=== PATIENT | female | born 1985 | race Caucasian/White ===

== ENCOUNTER → 2017-09-21 18:26 | Outpatient (CLI) | payer OTHER, SELFPAY | PROVIDERS: Family Provider Internal Medicine; PCP Internal Medicine; Visit Provider Physician Assistant | DX: J02.9 Acute pharyngitis, unspecified (principal) | CPT/HCPCS: 87081 ==

== ENCOUNTER → 2017-10-12 08:59 | Outpatient (CLI) | payer OTHER, SELFPAY ==
[2017-10-12 09:25] LABS: Absolute Lymphocyte Count 1.89 X10^3/ul (0.83-4.51); Absolute Neutrophil Count 5.2 X10^3/uL (2.0-7.7); Basophil# 0.04 X10^3/uL; Basophil% 0.5 % (0-1); Eosinophil# 0.27 X10^3/uL; Eosinophils% 3.5 % (0-5); Hematocrit 40.4 % (37-47); Hemoglobin 12.9 g/dl (12.0-15.0); Lymphocyte # 1.89 X10^3/ul (4.0); Lymphocyte % 24.5 % (19-41); Mean Corp Hgb Conc 31.9 g/gl (32-36); Mean Corpuscular Hgb 25.3 pg (27.0-32.0); Mean Corpuscular Volume 79.2 fL (81-99); Mean Platelet Vol. 8.8 fl (6.2-12.0); Monocyte# 0.37 X10^3/uL; Monocyte% 4.8 % (0-10); Neutrophil # 5.15 X10^3/uL (2.7-7.7); Neutrophil % 66.6 % (47-70); Platelet Count 297 K/mm3 (150-450); White Blood Count 7.7 K/mm3 (4.4-11.0)
[2017-10-12 09:26] LABS: POSITIVE COUNT NO; POSITIVE DIFFERENTIAL NO; POSITIVE MORPHOLOGY NO
[2017-10-12 09:58] LABS: Thyroid Stim Hormone (TSH) 0.46 uIU/mL (0.358-3.74)
== END ==
PROVIDERS: Family Provider Internal Medicine; PCP Internal Medicine; Visit Provider Nurse Practitioner Women's Health
DX: R53.83 Other fatigue (principal)
CPT/HCPCS: 82652; 84443; 85025

== ENCOUNTER → 2018-04-12 13:57 | Outpatient (CLI) | payer MEDICAID, SELFPAY ==
[2018-04-12 14:39] LABS: hCG Titer Quant., Serum 8 mIU/mL (<9 non-preg)
== END ==
PROVIDERS: Family Provider Internal Medicine; PCP Internal Medicine; Visit Provider Obstetrics & Gynecology
DX: O20.0 Threatened abortion (principal)
CPT/HCPCS: 36415; 84702

== ENCOUNTER → 2018-04-14 08:02 | Outpatient (CLI) | payer MEDICAID, SELFPAY ==
[2018-04-14 10:06] LABS: hCG Titer Quant., Serum 27 mIU/mL (<9 non-preg)
== END ==
PROVIDERS: Family Provider Internal Medicine; PCP Internal Medicine; Visit Provider Obstetrics & Gynecology
DX: O20.0 Threatened abortion (principal)
CPT/HCPCS: 36415; 84702

== ENCOUNTER → 2018-04-16 09:12 | Outpatient (CLI) | payer MEDICAID, SELFPAY ==
[2018-04-16 10:31] LABS: hCG Titer Quant., Serum 65 mIU/mL (<9 non-preg)
== END ==
PROVIDERS: Nurse Practitioner Women's Health; Family Provider Internal Medicine; PCP Internal Medicine; Visit Provider Obstetrics & Gynecology
DX: O20.0 Threatened abortion (principal)
CPT/HCPCS: 36415; 84702

== ENCOUNTER → 2018-04-30 09:56 | Outpatient (CLI) | payer MEDICAID, SELFPAY ==
[2018-04-30 11:17] LABS: hCG Titer Quant., Serum 9307 mIU/mL (<9 non-preg)
== END ==
PROVIDERS: Family Provider Internal Medicine; PCP Internal Medicine; Referring Provider Obstetrics & Gynecology; Visit Provider Obstetrics & Gynecology
DX: O20.0 Threatened abortion (principal)
CPT/HCPCS: 36415; 84702

== ENCOUNTER → 2018-05-14 18:02 | Outpatient (CLI) | payer OTHER, MEDICAID, SELFPAY ==
[2018-05-14 20:41] LABS: Chlamydia Trachomatis by PCR Negative (Negative); Neisserai gonorrhoeae by PCR Negative (Negative); Probe Check PASS; Sample Adequacy Control PASS; Specimen Processing Control PASS
== END ==
PROVIDERS: Family Provider Internal Medicine; PCP Internal Medicine; Referring Provider Obstetrics & Gynecology; Visit Provider Obstetrics & Gynecology
DX: Z98.891 History of uterine scar from previous surgery (principal)
CPT/HCPCS: 87086; 87491; 87591

== ENCOUNTER → 2018-07-12 11:35 | Outpatient (CLI) | payer MEDICAID, SELFPAY ==
[2018-07-11 13:28] VITALS: BMI 41.2
[2018-07-12 13:40] LABS: Absolute Lymphocyte Count 1.77 X10^3/ul (0.83-4.51); Absolute Neutrophil Count 6.8 X10^3/uL (2.0-7.7); Basophil# 0.01 X10^3/uL; Basophil% 0.1 % (0-1); Eosinophil# 0.21 X10^3/uL; Eosinophils% 2.3 % (0-5); Hematocrit 35.8 % (37-47); Hemoglobin 11.6 g/dl (12.0-15.0); Lymphocyte # 1.77 X10^3/ul (4.0); Lymphocyte % 19.1 % (19-41); Mean Corp Hgb Conc 32.4 g/gl (32-36); Mean Corpuscular Hgb 26.2 pg (27.0-32.0); Mean Corpuscular Volume 80.8 fL (81-99); Mean Platelet Vol. 8.9 fl (6.2-12.0); Monocyte# 0.42 X10^3/uL; Monocyte% 4.5 % (0-10); Neutrophil # 6.83 X10^3/uL (2.7-7.7); Neutrophil % 73.9 % (47-70); Platelet Count 229 K/mm3 (150-450); RBC Distribution Width CV 14.4 % (11.6-14.6); RBC Distribution Width SD 42.3 fl (35.1-43.9); Red Blood Count 4.43 M/mm3 (4.2-5.4); White Blood Count 9.3 K/mm3 (4.4-11.0)
[2018-07-12 13:41] LABS: POSITIVE COUNT NO; POSITIVE DIFFERENTIAL NO; POSITIVE MORPHOLOGY NO
[2018-07-12 14:11] LABS: Glucose Challenge Gest 1H 50g 97 mg/dL (70-140)
[2018-07-12 15:03] LABS: HIV - WCH Non-Reactive (Nonreactive); Rubella IgG 205.9 IU/mL
[2018-07-13 04:55] LABS: Rapid Plasmin Reagin (RPR) NONREACTIVE (NONREACTIVE)
[2018-07-16 11:17] LABS: HEPATITIS B SURFACE AG Negative (Negative)
[2018-07-16 11:18] LABS: V-Zoster IgG (Immunity) 604 index (Immune >165)
--- OUTSIDE RECORDS SUMMARY | 2018-08-28 07:01 | XMS RPT_ITS ---
:1985 Author Organization OHIP Support Name Relationship Address Phone AYLA NIEVES Unavailable [address] + [place] [address] WC Unavailable [address] + [place] [address] AYLA NIEVES Unavailable [address] + [place] [address] WC Unavailable [address] + [place] [address] AYLA NIEVES Unavailable [address] + [place] [address] WC Unavailable [address] + [place] [address] AYLA NIEVES Unavailable [address] + [place] [address] [facility] Unavailable [address] + [place] [address] AYLA NIEVES Unavailable [address] + [place] [address] WC Unavailable [address] + [place] [address] AYLA NIEVES Unavailable [address] + [place] [address] WC Unavailable [address] + [place] [address] AYLA NIEVES Unavailable [address] + [place] [address] WC Unavailable [address] + [place] [address] AYLA NIEVES Unavailable [address] + [place] [address] [facility] Unavailable [address] + [place] [address] ANDMIGUEL ROBERTSIEL Unavailable [address] + [place] [address] [facility] Unavailable [address] + [place] [address] ANDMIGUEL ROBERTSIEL Unavailable [address] + [place] [address] [facility] Unavailable [address] + [place] [address] ANDMIGUEL ROBERTSIEL Unavailable [address] + [place] [address] [facility] Unavailable [address] + [place] [address] ANDMIGUEL ROBERTSIEL Unavailable [address] + [place] [address] [facility] Unavailable [address] + [place] [address] ANDMIGUEL ROBERTSIEL Unavailable [address] + [place] [address] [facility] Unavailable [address] + [place] [address] ANDMIGUEL ROBERTSIEL Unavailable [address] + [place] [address] [facility] Unavailable [address] + [place] [address] ANDMIGUEL ROBERTSIEL Unavailable [address] + [place] [address] [facility] Unavailable [address] + [place] [address] ANDMIGUEL ROBERTSIEL Unavailable [address] + [place] [address] [facility] Unavailable [address] + [place] [address] ANDMIGUEL ROBERTSIEL Unavailable [address] + [place] [address] [facility] Unavailable [address] + [place] [address] [facility] Unavailable [address] + [place] [address] [facility] Unavailable [address] + [place] [address] AYLA NIEVES Unavailable [address] + [place] [address] [facility] Unavailable [address] + [place] [address] WC Unavailable [address] + [place] [address] [facility] Unavailable [address] + [place] [address] H Un[address] + [place] [address] [facility] Unavailable [address] + [place] [address] Care Team Providers Name Role Phone JUSTINA LAURA Maria Eugenia Attending Unavailable RAMONA LUA Referring Unavailable NO PRIMARY CARE, Primary Care Unavailable DANNIE PLATA Attending Unavailable RAMONA LUA Referring Unavailable NO PRIMARY CARE, Primary Care Unavailable DANNIE PLATA Attending Unavailable RAMONA LUA Referring Unavailable NO PRIMARY CARE, Primary Care Unavailable Ramona Lua Attending Unavailable Oleghe, Efewongbe Referring Unavailable Ramona Lua Attending Unavailable Ramona Lua Referring Unavailable Oleghe, Efewongbe Primary Care Unavailable Jonn Solano Attending Unavailable Oleghe, Efewongbe Referring Unavailable Neida Andrea Attending Unavailable Oleghe, Efewongbe Referring Unavailable Oleghe, Efewongbe Attending Unavailable Oleghe, Efewongbe Referring Unavailable Ramona Lua Attending Unavailable Oleghe, Efewongbe Referring Unavailable Jonn Solano Attending Unavailable Oleghe, Efewongbe Referring Unavailable Oleghe, Efewongbe Primary Care Unavailable Gagan Aj Attending Unavailable Oleghe, Efewongbe Referring Unavailable Oleghe, Efewongbe Primary Care Unavailable Gagan Aj Attending Unavailable Oleghe, Efewongbe Primary Care Unavailable Gagan Aj Referring Unavailable Aparna Vaughan Attending Unavailable Oleghe, Efewongbe Primary Care Unavailable Oleghe, Efewongbe Attending Unavailable Oleghe, Efewongbe Referring Unavailable Oleghe, Efewongbe Primary Care Unavailable Oleghe, Efewongbe Attending Unavailable Oleghe, Efewongbe Referring Unavailable Oleghe, Efewongbe Primary Care Unavailable Marcanthony, Ramona Attending Unavailable Marcanthony, Ramona Referring Unavailable Oleghe, Efewongbe Primary Care Unavailable Marcanthony, Ramona Attending Unavailable Marcanthony, Ramona Referring Unavailable Oleghe, Efewongbe Primary Care Unavailable Marcanthony, Ramona Attending Unavailable Marcanthony, Ramona Referring Unavailable Oleghe, Efewongbe Primary Care Unavailable Javad Hunt BATTER MIXER HELPER-C Attending Unavailable Oleghe, Efewongbe Referring Unavailable Oleghe, Efewongbe Primary Care Unavailable ASSESSMENT, HEALTH RISK Attending Unavailable ASSESSMENT, HEALTH RISK Referring Unavailable Oleghe, Efewongbe Primary Care Unavailable Marcanthony, Ramona Attending Unavailable Marcanthony, Ramona Referring Unavailable Oleghe, Efewongbe Primary Care Unavailable Marcanthony, Ramona Attending Unavailable Oleghe, Efewongbe Referring Unavailable Marcanthony, Ramona Attending Unavailable Oleghe, Efewongbe Primary Care Unavailable Marcanthony, Ramona Referring Unavailable TracyAparna Attending Unavailable Oleghe, Efewongbe Referring Unavailable PROBLEMS PROBLEMS DATE TYPE CONDITION / CODE ATTENDING STATUS SOURCE 08/06/2018 Unknown K42.9 - Umbilical Marcanthony, Active [place] hernia without [facility] obstruction or Hospital gangrene / Repository K42.9(ICD-10) 08/06/2018 Unknown F41.9 - Anxiety Marcanthony, Active [place] disorder, [facility] unspecified / Hospital F41.9(ICD-10) Repository 08/06/2018 Unknown F32.9 - Major Marcanthony, Active [place] depressive [facility] disorder, single Hospital episode, Repository unspecified / F32.9(ICD-10) 08/06/2018 Unknown Z98.891 - History Marcanthony, Active [place] of uterine scar [facility] from previous Hospital surgery / Repository Z98.891(ICD-10) 08/06/2018 Unknown Z3A.16 - 16 weeks Marcanthony, Active [place] gestation of [facility] / Hospital Z3A.16(ICD-10) Repository 08/06/2018 Unknown Z34.82 - Encounter Pedrocyndyolive, Active [place] for supervision of [facility] other normal Hospital , second Repository trimester / Z34.82(ICD-10) 08/06/2018 Unknown J45.20 - Mild Marcanthony, Active [place] intermittent [facility] asthma, Hospital uncomplicated / Repository J45.20(ICD-10) 08/06/2018 Unknown O09.899 - Marcanthony, Active [place] Supervision of [facility] other high risk Hospital pregnancies, Repository unspecified trimester / O09.899(ICD-10) 08/06/2018 Unknown Z67.91 - Marcanthony, Active [place] Unspecified blood [facility] type, Rh negative / Hospital Z67.91(ICD-10) Repository 06/27/2018 Unknown Z34.81 - Encounter Aparna Vaughan Active [place] for supervision of [facility] other normal Hospital , first Repository trimester / Z34.81(ICD-10) 07/04/2018 Unknown Z3A.08 - 8 weeks Marcanthony, Active [place] gestation of [facility] / Hospital Z3A.08(ICD-10) Repository 06/28/2018 Unknown Z00.00 - Encounter Javad Hunt Active [place] for general adult -C [facility] medical examination Hospital without abnormal Repository findings / Z00.00(ICD-10) 06/28/2018 Unknown Z34.90 - Encounter Javad Hunt Active [place] for supervision of [facility] normal , Hospital unspecified, Repository unspecified trimester / Z34.90(ICD-10) 06/28/2018 Unknown E66.9 - Obesity, Javad Hunt Active [place] unspecified / BATTER MIXER HELPER-C [facility] E66.9(ICD-10) Hospital Repository 07/27/2018 Unknown O20.0 - Threatened Marcanthony, Active [place] / [facility] O20.0(ICD-10) Hospital Repository 07/05/2018 Unknown J06.9 - Acute upper Oleghe, Active [place] respiratory Efewongbe [facility] infection, Hospital unspecified / Repository J06.9(ICD-10) 10/16/2017 Unknown R53.83 - Other TracyAparna guerrero Active [place] fatigue / Community R53.83(ICD-10) Hospital Repository 09/22/2017 Unknown J02.9 - Acute Wyles, Gagan Active [place] pharyngitis, [facility] unspecified / Hospital J02.9(ICD-10) Repository PROCEDURES PROCEDURES No Procedure Records FoundRESULTS RESULTS PREDATORY ANIMAL HUNTER OFFICE VISIT Observed: 08/06/2018 Status: F Source: [place] REPORT 2:57 PM [facility] REPOSITORY [facility] 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 Is patient in pain?: No Allergies ciprofloxacin [From Cipro] Allergy (Verified 08/06/18 14:35) Hives ciprofloxacin HCl [From Cipro] Allergy (Verified 08/06/18 14:35) Hives buspirone [From BuSpar] Adverse Reaction (Verified 08/06/18 14:35) Other citalopram [From Celexa] Adverse Reaction (Verified 08/06/18 14:35) Other fluoxetine [From Prozac] Adverse Reaction (Verified 08/06/18 14:35) Other Medications Loratadine [Claritin] 10 mg PO DAILY 07/12/16 [History Confirmed 08/06/18] sertraline 100 mg tablet 200 mg PO QDAY #180 tab 01/10/18 [Rx Confirmed 08/06/18] albuterol sulfate 0.63 mg/3 mL solution for nebulization 0.63 mg INHALATION Q8H PRN #90 ml 05/09/18 [Rx Confirmed 08/06/18] clotrimazole 1 % vaginal cream 1 appful VAGINAL QHS #45 g 05/25/18 [Rx Confirmed 08/06/18] Albuterol Inhaler [Ventolin Hfa] 1 - 2 puff INHALATION Q4H PRN PRN #1 inhaler 07/23/18 [Rx Confirmed 08/06/18] Last Menstral Period: 03/07/18 Zika: Zika virus screening: Negative : No PFSH PFSH Medical History Asthma (Chronic) Abdominal pain (Resolved) Anxiety (Resolved) Depression (Resolved) Diarrhea (Resolved) Nausea (Resolved) Surgical History History of (Acute) S/P tonsillectomy (Acute) Family History Mother Hypertension Cancer Skin Social History Smoking Status: Former smoker second hand exposure: No alcohol intake: current alcohol intake frequency: a few times a month substance use type: does not use caffeine: Yes what type of physical activity do you participate in: none frequency: does not exercise seatbelt use: always Pregancy History 4 Elective abortions Hx Para 2 Spontaneous abortions Past Pregnancies Del. DateName GA/Weeks Outcome Route Bth WeighInfant GeLabor LgtAnesthesiDel LocatProvider FOB t n h a n HPI 20 weeks: Details: CHEN NIEVES is a 33 year old who presents for routine OB visit. OB Visit CASTRO Calculator Estimated Delivery Date 12/21/18 Based on Ultrasound Date 05/14/18 Current WG 20w 3d Number 1 Expected Delivery Route/Plan Rltcs ?BTO Specific Issue/Plans flu vaccine: with employer tdap vaccine: [] rhogam: NA LARC form signed: [] labor support person: Ludwig pain management: [] cut cord/dad catch: [] : Yes PP control planned: [] special requests: [] Initial Weight: 235 lb Date Weight BP Urine PrFHR FuHt Pres MoCTX DilationFetal StVisit NoProviderComments E ot v te GA G Effac lucose ed Visit Notes Visit Date: 08/06/18 no vb cramping Ramona Lua MD on 08/06/18 Visit Date: 07/11/18 no vb cramping Ramona Lua MD on 07/11/18 Visit Date: 06/11/18 Nausea persisting in evenings. No VB, LOF Aparna Vaughan, BATTER MIXER HELPER-C on 06/11/18 ACOG First Trimester First Trimester: Desire for , Alcohol, Tobacco Cessation, Illicit/Recreational Drug/Substance Use, Intimate Partner Violence, Barriers to care, Unstable Housing, Communication Barriers, Environmental/Work Hazards, Anticipated Course of Care, Toxoplasmosis Precations, Use of Any medications, Sexual activity, Exercise, Dental Care, Sauna/Hot tub use, Seat Belt use, Childbirth classes/Hospital facilities, , Travel, Indications for US and Screening for Aneuploidy Diagnostics Diagnostics Labs Blood Type A NEGATIVE 07/12/18 Antibody Screen NEGATIVE 07/12/18 Hct 35.8 % (37-47) L 07/12/18 Hgb 11.6 g/dl (12.0-15.0) L 07/12/18 VZV IgG Antibody 604 index (Immune >165) 07/12/18 Rubella IgG Antibody 205.9 IU/mL 07/12/18 RPR NONREACTIVE (NONREACTIVE) 07/12/18 Hep Bs Antigen Negative (Negative) 07/12/18 Chlam trachomat DNA PCR Negative (Negative) 05/14/18 N.gonorrhoeae DNA (PCR) Negative (Negative) 05/14/18 Glucose 1 Hr 50 gm 97 mg/dL (70-140) 07/12/18 Details: HIV: Urine Culture: Sequential Screen: NIPT Screen: Assessment AND Plan Problems 1. Mild intermittent asthma without complication J45.20 albuterol PRN- not well controlled, refer to PCP consider Qvar daily 2. Umbilical hernia without obstruction and without gangrene K42.9 stable 3. Anxiety and depression F41.9; F32.9 zoloft 4. History of delivery Z98.891 03/28/14, 10/31/16 plan RLTCS 5. 16 weeks gestation of Z3A.16 anatomy scan ordered. NT not complete due to position and patient declined f/u appt. 6. Encounter for supervision of other normal in second trimester Z34.82 CASTRO 12/21/18 Nathan Baker Ludwig 7. Rh negative state in antepartum period O09.899; Z67.91 rhogam at 29 wk, pp and prn Plan ACOG trimester education reviewed and updated. see problem list details for updated plan management information and see below for orders placed at this visit. GA appropriate handout given. Orders Orders: Coding Level of Care Code Off vis,est,level 3 Diagnoses Mild intermittent asthma without complication J45.20 Asthma severity: mild Asthma persistence: intermittent Asthma complication type: uncomplicated Umbilical hernia without obstruction and without gangrene K42.9 Hernia type: umbilical Obstruction and gangrene presence: without obstruction or gangrene Anxiety and depression F41.9; F32.9 History of delivery Z98.891 16 weeks gestation of Z3A.16 Weeks of gestation: 16 weeks Encounter for supervision of other normal in second trimester Z34.82 Normal : other normal Trimester: second trimester Rh negative state in antepartum period O09.899; Z67.91 08/06/18 1457 <Electronically signed by Ramona Lua MD> Date Ramona Lua MD Cosigner Signature: Date (if applicable) CC: INTERNAL MEDICINE Observed: 07/26/2018 Status: F Source: [place] OFFICE VISIT 2:38 PM [facility] Internal Medicine [address] [place] [address] [place] [address] OFFICE VISIT Date of Service: 07/23/18 MR#: [id number] Acct: [id number] Name: CHEN NIEVES Rep #: [id number] : 1985 Provider: Rekha Payne MD Age/Sex: 33/F Location: [facility] Status: Signed Intake Vital Signs07/23/18 Body Mass Index (BMI) 41.2 07/23/18 Height 5 ft 4 in Intake Visit Reasons: Acute Chief Complaint: COUGH Is patient in pain?: Yes (rib pain) Pain scale (1-10): 7 Allergies ciprofloxacin [From Cipro] Allergy (Verified 07/15/18 11:13) Hives ciprofloxacin HCl [From Cipro] Allergy (Verified 07/15/18 11:13) Hives buspirone [From BuSpar] Adverse Reaction (Verified 07/15/18 11:13) Other citalopram [From Celexa] Adverse Reaction (Verified 07/15/18 11:13) Other fluoxetine [From Prozac] Adverse Reaction (Verified 07/15/18 11:13) Other Medications Loratadine [Claritin] 10 mg PO DAILY 07/12/16 [History Confirmed 07/15/18] sertraline 100 mg tablet 200 mg PO QDAY #180 tab 01/10/18 [Rx Confirmed 07/15/18] promethazine 12.5 mg tablet 12.5 mg PO Q6H PRN #120 tab 05/08/18 [Rx Confirmed 07/15/18] albuterol sulfate 0.63 mg/3 mL solution for nebulization 0.63 mg INHALATION Q8H PRN #90 ml 05/09/18 [Rx Confirmed 07/15/18] albuterol sulfate HFA 90 mcg/actuation aerosol inhaler 2 puff INHALATION PRN PRN #8.5 g 05/09/18 [Rx Confirmed 07/15/18] clotrimazole 1 % vaginal cream 1 appful VAGINAL QHS #45 g 05/25/18 [Rx Confirmed 07/15/18] ondansetron HCl 4 mg tablet 4 mg PO Q6H PRN #60 tab 06/11/18 [Rx Confirmed 07/15/18] Albuterol Inhaler [Ventolin Hfa] 1 - 2 puff INHALATION Q4H PRN PRN #1 inhaler 07/23/18 [Rx] amoxicillin 875 mg-potassium clavulanate 125 mg tablet 1 tab PO Q12H #20 tab 07/23/18 [Rx Confirmed 07/23/18] prednisone 20 mg tablet 20 mg PO DAILY #5 tab 07/23/18 [Rx Confirmed 07/23/18] Is last menstrual period known: Yes Patient : Yes PFSH Medical History Asthma (Chronic) Abdominal pain (Resolved) Anxiety (Resolved) Depression (Resolved) Diarrhea (Resolved) Nausea (Resolved) Surgical History History of (Acute) S/P tonsillectomy (Acute) Family History Mother Hypertension Cancer Skin Social History Smoking Status: Former smoker second hand exposure: No alcohol intake: current alcohol intake frequency: a few times a month substance use type: does not use caffeine: Yes what type of physical activity do you participate in: none frequency: does not exercise seatbelt use: always HPI HPI Chief Complaint: COUGH Details: CHEN NIEVES, is a 33yo F who presents to the office today due to concerns about ongoing cough , shortness of breath nasal congestion and feeling of unwell. Symptoms have been ongoing for about 10 days. She was seen at the Urgent care and was given a Z pack without significant improvement. She states that she has had to use her inhaler every 4 - 6 hours and has also had to have a Duoneb treatment at least once daily over the last couple of days. Seen today by her Master Esthetician who referred her over here for management of her exacerbation with steroid. ROS Const Constitutional: No weight change, body ache, chills, fatigue, sleep problems, fever(s), change in appetite, snoring, weakness, frequent falls, headache(s) or excessive sweating Eyes Eyes: No change in vision, eye pain, light sensitivity or blurry vision ENT ENT: Positive for nasal discharge and sinus pain; no headache(s), abnormal hearing, ear pain, tinnitus, sore throat or neck pain Resp Respiratory: Positive for cough Cough: Yes productive, shortness of breath and chest congestion; no snoring or wheezing Cardio Cardiology: No excessive sweating, chest pain at rest, chest pain with exertion, shortness of breath, dyspnea on exertion, palpitations, orthopnea or lightheadedness Gastro GI: No abdominal pain, change in bowel habits, constipation, diarrhea, vomiting, nausea/dyspepsia or cramping Genitourinary-Female: No burning urination, painful urination, urinary incontinence, urinary frequency, abnormal vaginal bleeding, pelvic pain or other Musc Musculoskeletal: No neck pain, abnormal walking, joint pain, back pain, limited range of motion, numbness or tingling Skin Skin: No redness, dry skin, itching, lesions, wounds or rash Neuro Neurology: No weakness, frequent falls, headache(s), abnormal hearing, abnormal walking, numbness, tingling, abnormal speech, dizziness or memory loss Psych Psychiatric: No change in appetite, No memory loss, No anxiety, No depression, No Thoughts of harming yourself/Others Endo Endocrine: No fatigue, excessive sweating, cold intolerance, increased thirst/drinking, heat intolerance, flushing or increased hunger Aller/Imm Allergy/Immunologic: No wheezing, itchy eyes, hives or seasonal allergy symptoms Joaquín/Lymp Hematologic/Lymphatic: No easy bleeding, easy bruising or enlarged lymph nodes Exam Const General: cooperative, no acute distress Orientation: alert, awake, oriented x3 HENMT Head: atraumatic, normal to inspection, normocephalic Ears: hearing grossly normal bilaterally Neck Neck: normal visual inspection, full ROM Neck mass: No Resp Effort AND Inspection: normal respiratory effort, able to speak in complete sentences Other: Very mild expiratory wheeze. Otherwise clear to auscultation. Cardio Rate: regular rate Rhythm: regular rhythm Heart Sounds: S1 normal, S2 normal Neuro General: alert, awake, oriented x3, moves all extremities, CN's II-XI intact bilaterally Psych Appearance: grossly normal Mood: congruent mood Affect: normal affect Assessment AND Plan 1. Asthma exacerbation J45.901 Plan Symptoms of cough, shortness of breath, increased sputum production and increased need for inhaler suggestive of asthma exacerbation. Most likely as a result of acute sinusitis. Okay to go on steroids per her paunch trimmer. 20 mg of prednisone daily for 5 days. Augmentin 875 125 mg every 12 for 10 days. Advised to call the office with any concerns or go to the ER if she notes worsening symptoms. 2. Acute sinusitis J01.90 Plan Prior history of sinusitis. Symptoms consistent with acute bacterial sinusitis. Augmentin as above. Tylenol as needed for pain/headache. Rest, increased fluid intake also recommended. This note was generated with [employer] dictation software. It may contain incorrect words, spelling, and punctuation that were not noted in checking the note before signing. Plan Detail Other Medications New: Coding Level of Care Code Off vis,est,level 3 Diagnoses Asthma exacerbation J45.901 Acute sinusitis J01.90 07/26/18 1438 <Electronically signed by Rekha Payne MD> Date Rekha Payne MD Cosigner Signature: Date (if applicable) CC: OFFICE VISIT REPORT Observed: 07/15/2018 Status: F Source: [place] 12:18 PM [facility] [place] [address] OFFICE VISIT Date of Service: 07/15/18 MR#: [id number] Acct: [id number] Patient: CHEN NIEVES Rep #: [id number] : 1985 Provider: Neida Andrea Age/Sex: 33/F Location[facility] Status: Signed Intake Vital Signs07/15/18 Body Mass Index (BMI) 41.2 07/15/18 Height 5 ft 4 in 07/15/18 Weight: 240 lb 07/15/18 Body Mass Index (BMI) 41.1 07/15/18 Blood Pressure 118/74 Intake Visit Reasons: COUGH, SORE THROAT/ SINUS Chief Complaint: COUGH Mill 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 Accompanied by: SELF Is patient in pain?: No Allergies ciprofloxacin [From Cipro] Allergy (Verified 07/15/18 11:13) Hives ciprofloxacin HCl [From Cipro] Allergy (Verified 07/15/18 11:13) Hives buspirone [From BuSpar] Adverse Reaction (Verified 07/15/18 11:13) Other citalopram [From Celexa] Adverse Reaction (Verified 07/15/18 11:13) Other fluoxetine [From Prozac] Adverse Reaction (Verified 07/15/18 11:13) Other Medications Loratadine [Claritin] 10 mg PO DAILY 07/12/16 [History Confirmed 07/15/18] sertraline 100 mg tablet 200 mg PO QDAY #180 tab 01/10/18 [Rx Confirmed 07/15/18] promethazine 12.5 mg tablet 12.5 mg PO Q6H PRN #120 tab 05/08/18 [Rx Confirmed 07/15/18] albuterol sulfate 0.63 mg/3 mL solution for nebulization 0.63 mg INHALATION Q8H PRN #90 ml 05/09/18 [Rx Confirmed 07/15/18] albuterol sulfate HFA 90 mcg/actuation aerosol inhaler 2 puff INHALATION PRN PRN #8.5 g 05/09/18 [Rx Confirmed 07/15/18] clotrimazole 1 % vaginal cream 1 appful VAGINAL QHS #45 g 05/25/18 [Rx Confirmed 07/15/18] ondansetron HCl 4 mg tablet 4 mg PO Q6H PRN #60 tab 06/11/18 [Rx Confirmed 07/15/18] azithromycin 250 mg tablet See Rx Instructions PO .COMPLEX #6 tab 07/15/18 [Rx Confirmed 07/15/18] PFSH Medical History Asthma (Chronic) Abdominal pain (Resolved) Anxiety (Resolved) Depression (Resolved) Diarrhea (Resolved) Nausea (Resolved) Surgical History History of (Acute) S/P tonsillectomy (Acute) Family History Mother Hypertension Cancer Skin Social History Smoking Status: Former smoker second hand exposure: No alcohol intake: current alcohol intake frequency: a few times a month substance use type: does not use caffeine: Yes what type of physical activity do you participate in: none frequency: does not exercise seatbelt use: always HPI HPI Chief Complaint: COUGH Details: CHEN NIEVES, is a 33 F who presents to the office today for an urgent appt. Pt sts that her symptoms started monday. She started with cough/bodyaches/headache/fatigue/sinus congestion. She has used OTC medication with some relief. rapid flu negative ROS Const Constitutional: Positive for body ache, fatigue, fever(s) and headache(s) Eyes Eyes: Positive for light sensitivity; no discharge or change in vision ENT ENT: Positive for headache(s), nasal congestion, nasal discharge, sinus pressure, post nasal drip and sore throat Resp Respiratory: Positive for cough Cardio Cardiology: No chest pain at rest, chest pain with exertion or shortness of breath Gastro GI: No diarrhea, nausea/dyspepsia or Vomiting blood/hematemesis Neuro Neurology: Positive for headache(s) Endo Endocrine: Positive for fatigue Exam Const General: cooperative, no acute distress, ill appearing acutely Orientation: alert, oriented x3 HENMT Head: atraumatic, normocephalic Ears: TM abnormal retracted bilaterally Nose: nasal mucous membranes and turbinates normal Face and sinus: sinus tenderness maxillary and frontal Mouth: moist mucous membranes Throat: posterior oropharynx abnormal erythema Eyes Sclera: sclerae normal Cornea: corneas normal Pupils: PERRL EOM: EOM intact bilaterally Neck Neck: no lymphadenopathy, trachea midline, supple Neck mass: No Thyroid: thyroid normal Resp Effort AND Inspection: normal respiratory effort Auscultation: Bilateral: Clear to Auscultation Cardio Palpation: normal PMI Rate: regular rate Rhythm: regular rhythm Heart Sounds: S1 normal, S2 normal, no click, no gallops, no murmurs, no rubs GI Auscultation: normal bowel sounds Percussion: normal to percussion Palpation: soft, no hepatosplenomegaly, nontender Skin General: no rashes or lesions noted Neuro General: alert, oriented x3, CN's II-XI intact bilaterally, no focal motor deficits Assessment AND Plan Problems 1. Acute pansinusitis, recurrence not specified J01.40 Plan Advised patient to complete course of antibiotics given. Advised patient on the importance of hydration. Recommended the use of txmz-iin-yxocpib support from Advil, Tylenol and dmey-hpr-pdslerg cold medications to help alleviate symptoms. Did review maximum dosing on each of these medications to avoid accidental overdose of medications. Advised not to take Zofran during antx use Medications New: azithromycin (Zithromax Z-Kevin) take 500 mg today (day 1), then 250 mg for 4 days (days 2-5 ) PO 6 tabs 0RF Coding Level of Care Code Off vis,est,level 4 Diagnoses Acute pansinusitis, recurrence not specified J01.40 Sinusitis location: pansinusitis Chronicity: acute Recurrence: not specified as recurrent 07/15/18 1218 <Electronically signed by Neida RUTHERFORD> Date Neida RUTHERFORD Cosigner Signature: Date (if applicable) CC: CBC W/DIFF, AUTOMATED Collected: 07/12/2018 Status: F Source: ABIGAIL 11:43 AM [facility] REPOSITORY TYPE CODE TESTS RESULT OUT OF RANGE REFERENCE UNITS LAB L100.1000 4.4-11.0 K/mm3 Normal WBC 9.3 LAB L100.1200 4.2-5.4 M/mm3 Normal RBC 4.43 LAB L100.1300 12.0-15.0 g/dl Low HGB 11.6 LAB L100.1400 37-47 % Low HCT 35.8 LAB L100.1500 81-99 fL Low MCV 80.8 LAB L100.1600 27.0-32.0 pg Low MCH 26.2 LAB L100.1700 32-36 g/gl Normal MCHC 32.4 LAB L100.1810 11.6-14.6 % Normal RDW CV 14.4 LAB L100.1820 35.1-43.9 fl Normal RDW SD 42.3 LAB L100.1900 150-450 K/mm3 Normal PLT 229 LAB L100.2000 6.2-12.0 fl Normal MPV 8.9 LAB L100.2100 47-70 % High NEUT% 73.9 LAB L100.2200 19-41 % Normal LY% 19.1 LAB L100.2300 0-10 % Normal MONO% 4.5 LAB L100.2400 0-5 % Normal EO% 2.3 LAB L100.2500 0-1 % Normal BASO% 0.1 LAB L100.2550 0.0-0.9 % Normal IM GRAN % 0.100 Result Comment: IG% - Immature Granulocytes (promyelocytes, myelocytes and metamyelocytes) > 1% indicates that a LEFT SHIFT is Present. LAB L100.2620 2.0-7.7 X10 3/uL Normal Absolute Neut 6.8 LAB L100.2720 0.83-4.51 X10 3/ul Normal Absolute Lymph 1.77 Performed By: #### L100.0100 #### [facility] [address] [place], [address] GLUCOSE CHALLENGE GEST Collected: 07/12/2018 Status: F Source: ABIGAIL 1H 50G 11:43 AM [facility] REPOSITORY TYPE CODE TESTS RESULT OUT OF RANGE REFERENCE UNITS LAB L501.0250 70-140 mg/dL Normal GLU GEST 97 50g 1H Performed By: #### L501.0250 #### [facility] [address] [place], [place], [id number] RUBELLA IGG Collected: 07/12/2018 Status: F Source: ALFRED 11:43 AM [facility] REPOSITORY TYPE CODE TESTS RESULT OUT OF RANGE REFERENCE UNITS LAB L509.4000 IU/mL Normal Rubella IgG 205.9 Result Comment: Antibody results Interpretation of Immune Status < 5 IU/ml Presumed Non-immune 5 - < 10 IU/ml Equivocal > or = 10 IU/ml Presumed Immune Performed By: #### L509.4000, L3890.6005 #### [facility] [address] [facility] [id number] HIV - [facility] Collected: 07/12/2018 Status: F Source: ALFRED 11:43 AM [facility] REPOSITORY TYPE CODE TESTS RESULT OUT OF RANGE REFERENCE UNITS LAB L3890.6005 Nonreactive Normal HIV - [facility] Non-Reactive Performed By: #### L509.4000, L3890.6005 #### [facility] [place], [place], [id number] TYPE AND SCREEN Collected: 07/12/2018 Status: F Source: ALFRED 11:43 AM [facility] REPOSITORY Order Comment: Reason for Type AND Screen/Red Cells: TYPE CODE TESTS RESULT OUT OF RANGE REFERENCE UNITS LAB B10.0800 A Normal BLOOD TYPE GEL NEGATIVE LAB B100.4000 Normal Antibody NEGATIVE Screen Performed By: #### B101.7450 #### [facility] [facility] [id number] RAPID PLASMIN REAGIN Collected: 07/12/2018 Status: F Source: ALFRED (RPR) 11:43 AM [facility] REPOSITORY TYPE CODE TESTS RESULT OUT OF REFERENCE UNITS RANGE LAB L700.5000 NONREACTIVE NONREACTIVE Normal RPR Performed By: #### L700.5000 #### [facility] [address] [facility] [id number] HEPATITIS B SURFACE Collected: 07/12/2018 Status: F Source: ABIGAIL AG 11:43 AM [facility] REPOSITORY TYPE CODE TESTS RESULT OUT OF RANGE REFERENCE UNITS LAB L3100.0400 Negative Normal HB Negative SURF AG Result Comment: Performed at: - [facility] [id number] Bedspread Cutter: Neel Lombardo PhD, Phone: [phone] Performed By: #### L3100.0390, L3400.0000 #### [facility] (refer to report for specific site) refer to report for address and phone number V-ZOSTER IGG Collected: 07/12/2018 Status: F Source: ABIGAIL (IMMUNITY) 11:43 AM [facility] REPOSITORY TYPE CODE TESTS RESULT OUT OF RANGE REFERENCE UNITS LAB L3400.0000 Immune >165 index Normal VZOST IgG 604 [address] Result Comment: Negative <135 Equivocal 135 - 165 Positive >165 A positive result generally indicates exposure to the pathogen or administration of specific immunoglobulins, but it is not indication of active infection or stage of disease. Performed By: #### L3100.0390, L3400.0000 #### [facility] (refer to report for specific site) refer to report for address and phone number PREDATORY ANIMAL HUNTER OFFICE VISIT Observed: 07/11/2018 Status: F Source: ABIGAIL REPORT 1:59 PM [facility] REPOSITORY [facility]'s 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 Is patient in pain?: No Allergies ciprofloxacin [From Cipro] Allergy (Verified 07/11/18 13:28) Hives ciprofloxacin HCl [From Cipro] Allergy (Verified 07/11/18 13:28) Hives buspirone [From BuSpar] Adverse Reaction (Verified 07/11/18 13:28) Other citalopram [From Celexa] Adverse Reaction (Verified 07/11/18 13:28) Other fluoxetine [From Prozac] Adverse Reaction (Verified 07/11/18 13:28) Other Medications Loratadine [Claritin] 10 mg PO DAILY 07/12/16 [History Confirmed 07/11/18] sertraline 100 mg tablet 200 mg PO QDAY #180 tab 01/10/18 [Rx Confirmed 07/11/18] promethazine 12.5 mg tablet 12.5 mg PO Q6H PRN #120 tab 05/08/18 [Rx Confirmed 07/11/18] albuterol sulfate 0.63 mg/3 mL solution for nebulization 0.63 mg INHALATION Q8H PRN #90 ml 05/09/18 [Rx Confirmed 07/11/18] albuterol sulfate HFA 90 mcg/actuation aerosol inhaler 2 puff INHALATION PRN PRN #8.5 g 05/09/18 [Rx Confirmed 07/11/18] clotrimazole 1 % vaginal cream 1 appful VAGINAL QHS #45 g 05/25/18 [Rx Confirmed 07/11/18] ondansetron HCl 4 mg tablet 4 mg PO Q6H PRN #60 tab 06/11/18 [Rx Confirmed 07/11/18] Last Menstral Period: 03/07/18 Zika: Zika virus screening: Negative : No PFSH PFSH Medical History Diarrhea (Acute) Nausea (Acute) Abdominal pain (Acute) Asthma (Chronic) Anxiety (Acute) Depression (Acute) Surgical History History of (Acute) S/P tonsillectomy (Acute) Family History Mother Hypertension Cancer Skin Social History Smoking Status: Former smoker second hand exposure: No alcohol intake: current alcohol intake frequency: a few times a month substance use type: does not use caffeine: Yes what type of physical activity do you participate in: none frequency: does not exercise seatbelt use: always Pregancy History 4 Elective abortions Hx Para 2 Spontaneous abortions Past Pregnancies Del. DateName GA/Weeks Outcome Route Bth WeighInfant GeLabor LgtAnesthesiDel LocatProvider FOB t n h a n HPI 16 weeks: Details: CHEN NIEVES is a 33 year old who presents for routine OB visit. OB Visit CASTRO Calculator Estimated Delivery Date 12/21/18 Based on Ultrasound Date 05/14/18 Current WG 16w 5d Number 1 Expected Delivery Route/Plan Rltcs ?BTO Specific Issue/Plans flu vaccine: with employer tdap vaccine: [] rhogam: NA LARC form signed: [] labor support person: Ludwig pain management: [] cut cord/dad catch: [] : Yes PP control planned: [] special requests: [] Initial Weight: 235 lb Date Weight BP Urine PrFHR FuHt Pres MoCTX DilationFetal StVisit NoProviderComments E ot v te GA G Effac lucose ed Visit Notes Visit Date: 07/11/18 no vb cramping Ramona Lua MD on 07/11/18 Visit Date: 06/11/18 Nausea persisting in evenings. No VB, LOF Aparna Vaughan NP-C on 06/11/18 ACOG First Trimester First Trimester: Desire for , Alcohol, Tobacco Cessation, Illicit/Recreational Drug/Substance Use, Intimate Partner Violence, Barriers to care, Unstable Housing, Communication Barriers, Environmental/Work Hazards, Anticipated Course of Care, Toxoplasmosis Precations, Use of Any medications, Sexual activity, Exercise, Dental Care, Sauna/Hot tub use, Seat Belt use, Childbirth classes/Hospital facilities, , Travel, Indications for US and Screening for Aneuploidy Diagnostics Diagnostics Labs Hct 38.7 % (37-47) 04/26/18 Hgb 12.1 g/dl (12.0-15.0) 04/26/18 Chlam trachomat DNA PCR Negative (Negative) 05/14/18 N.gonorrhoeae DNA (PCR) Negative (Negative) 05/14/18 Details: HIV: Urine Culture: Sequential Screen: NIPT Screen: Results [id number] Office Urine Glucose Negative Last Edit by Neida Flores on 07/11/18 13:27 Office Urine Protein Negative Last Edit by Neida Flores on 07/11/18 13:27 Assessment AND Plan Problems 1. Umbilical hernia without obstruction and without gangrene K42.9 stable 2. Anxiety and depression F41.9; F32.9 zoloft 3. History of delivery Z98.891 03/28/14, 10/31/16 plan RLTCS 4. 16 weeks gestation of Z3A.16 anatomy scan ordered. NT not complete due to position and patient declined f/u appt. 5. Encounter for supervision of other normal in second trimester Z34.82 CASTRO 12/21/18 PC Nathan Shane Ludwig 6. Mild intermittent asthma without complication J45.20 Plan ACOG trimester education reviewed and updated. see problem list details for updated plan management information and see below for orders placed at this visit. GA appropriate handout given. needs new ob labs drawn. Orders Orders: Coding Level of Care Code OB Routine Diagnoses Umbilical hernia without obstruction and without gangrene K42.9 Hernia type: umbilical Obstruction and gangrene presence: without obstruction or gangrene Anxiety and depression F41.9; F32.9 History of delivery Z98.891 16 weeks gestation of Z3A.16 Weeks of gestation: 16 weeks Encounter for supervision of other normal in second trimester Z34.82 Normal : other normal Trimester: second trimester Mild intermittent asthma without complication J45.20 Asthma severity: mild Asthma persistence: intermittent Asthma complication type: uncomplicated 07/11/18 1359 <Electronically signed by Ramona Lua MD> Date Ramona Lua MD Cosigner Signature: Date (if applicable) CC: PREDATORY ANIMAL HUNTER OFFICE VISIT Observed: 06/11/2018 Status: F Source: ABIGAIL REPORT 2:51 PM [facility]'s 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 Is patient in pain?: No Allergies ciprofloxacin [From Cipro] Allergy (Verified 06/11/18 14:17) Hives ciprofloxacin HCl [From Cipro] Allergy (Verified 06/11/18 14:17) Hives buspirone [From BuSpar] Adverse Reaction (Verified 06/11/18 14:17) Other citalopram [From Celexa] Adverse Reaction (Verified 06/11/18 14:17) Other fluoxetine [From Prozac] Adverse Reaction (Verified 06/11/18 14:17) Other Medications Loratadine [Claritin] 10 mg PO DAILY 07/12/16 [History Confirmed 06/11/18] sertraline 100 mg tablet 200 mg PO QDAY #180 tab 01/10/18 [Rx Confirmed 06/11/18] promethazine 12.5 mg tablet 12.5 mg PO Q6H PRN #120 tab 05/08/18 [Rx Confirmed 06/11/18] albuterol sulfate 0.63 mg/3 mL solution for nebulization 0.63 mg INHALATION Q8H PRN #90 ml 05/09/18 [Rx Confirmed 06/11/18] albuterol sulfate HFA 90 mcg/actuation aerosol inhaler 2 puff INHALATION PRN PRN #8.5 g 05/09/18 [Rx Confirmed 06/11/18] clotrimazole 1 % vaginal cream 1 appful VAGINAL QHS #45 g 05/25/18 [Rx Confirmed 06/11/18] ondansetron HCl 4 mg tablet 4 mg PO Q6H PRN #60 tab 06/11/18 [Rx Confirmed 06/11/18] Last Menstral Period: 03/07/18 Zika: Zika virus screening: Negative : No PFSH PFSH Medical History Diarrhea (Acute) Nausea (Acute) Abdominal pain (Acute) Asthma (Chronic) Anxiety (Acute) Depression (Acute) Surgical History History of (Acute) S/P tonsillectomy (Acute) Family History Mother Hypertension Cancer Skin Social History Smoking Status: Former smoker second hand exposure: No alcohol intake: current alcohol intake frequency: a few times a month substance use type: does not use caffeine: Yes what type of physical activity do you participate in: none frequency: does not exercise seatbelt use: always Pregancy History 4 Elective abortions Hx Para 2 Spontaneous abortions Past Pregnancies Del. DateName GA/Weeks Outcome Route Bth WeighInfant GeLabor LgtAnesthesiDel LocatProvider FOB t n h a n HPI OB: Details: CHEN NIEVES is a 32 year old who presents for routine OB visit. OB Visit CASTRO Calculator Estimated Delivery Date 12/21/18 Based on Ultrasound Date 05/14/18 Current WG 12w 3d Number 1 Expected Delivery Route/Plan Rltcs Specific Issue/Plans flu vaccine: with employer tdap vaccine: [] rhogam: NA LARC form signed: [] labor support person: Ludwig pain management: [] cut cord/dad catch: [] : Yes PP control planned: [] special requests: [] Initial Weight: Not Recorded Date Weight BP Urine PrFHR FuHt Pres MoCTX DilationFetal StVisit NoProviderComments E ot v te GA G Effac lucose ed Visit Notes Visit Date: 06/11/18 Nausea persisting in evenings. No VB, LOF CARLOS Edgar on 06/11/18 ACOG First Trimester First Trimester: Desire for , Alcohol, Tobacco Cessation, Illicit/Recreational Drug/Substance Use, Intimate Partner Violence, Barriers to care, Unstable Housing, Communication Barriers, Environmental/Work Hazards, Anticipated Course of Care, Toxoplasmosis Precations, Use of Any medications, Sexual activity, Exercise, Dental Care, Sauna/Hot tub use, Seat Belt use, Childbirth classes/Hospital facilities, , Travel, Indications for US and Screening for Aneuploidy Diagnostics Diagnostics Labs Hct 38.7 % (37-47) 04/26/18 Hgb 12.1 g/dl (12.0-15.0) 04/26/18 Chlam trachomat DNA PCR Negative (Negative) 05/14/18 N.gonorrhoeae DNA (PCR) Negative (Negative) 05/14/18 Details: HIV: Urine Culture: Sequential Screen: NIPT Screen: Results [id number] Office Urine Glucose Negative Last Edit by Neida Flores on 06/11/18 14:27 Office Urine Protein Negative Last Edit by Neida Flores on 06/11/18 14:27 Assessment AND Plan Problems 1. Encounter for supervision of other normal in first trimester Z34.81 CASTRO 12/21/18 Nathan Baker Ludwig 2. 8 weeks gestation of Z3A.08 sequential and anatomy scan ordered. 3. History of Z98.891 03/28/14, 10/31/16 plan RLTCS Plan Orders placed: yung US confirmed active IUP and FHT NT scheduled in 3 days with MFM; will do labs and 1 hr GCT Safe OB med list given ACOG trimester education reviewed and updated See problem list details for updated plan of care Gestational age appropriate handout given RTO: 4 weeks Orders Orders: Medications New: Coding Level of Care Code OB Routine Diagnoses Encounter for supervision of other normal in first trimester Z34.81 Normal : other normal Trimester: first trimester 8 weeks gestation of Z3A.08 Weeks of gestation: 8 weeks History of Z98.891 06/11/18 1451 <Electronically signed by Aparna GONZALEZ> Date Aparna GONZALEZ Cosigner Signature: Date (if applicable) CC: CT/NG [facility]CH BY PCR Collected: 05/14/2018 Status: F Source: ABIGAIL 6:02 PM [facility] REPOSITORY Order Comment: NO COLLECTION INFO GIVEN TYPE CODE TESTS RESULT OUT OF RANGE REFERENCE UNITS LAB L8200.2100 Negative Normal Chlam Negative Trac PCR LAB L8200.2200 Negative Normal NG by Negative PCR Performed By: #### L8200.1999, M100.0650 #### [facility] [address] [place], [address] Observed: 05/14/2018 Status: F Source: ABIGAIL CULTURE, URINE 6:02 PM [facility] REPOSITORY NO COLLECTION INFO GIVEN Urine Culture Culture exhibits no growth. Performed By: #### L8200.1999, M100.0650 #### [facility] [address] [place], [address] PREDATORY ANIMAL HUNTER OFFICE VISIT Observed: 05/14/2018 Status: F Source: ABIGAIL REPORT 5:20 PM [facility] REPOSITORY [facility] [address] [place] [address] OFFICE VISIT Date of Service: 05/14/18 MR#: [id number] Acct: [id number] Name: CHEN NIEVES Rep #: [id number] : 1985 Provider: Ramona Lua MD Age/Sex: 32/F Location: [facility] Status: Signed Intake Vital Signs05/14/18 Height 5 ft 4 in 05/14/18 Weight: 230 lb 05/14/18 Body Mass Index (BMI) 39.4 Intake Visit Reasons: lmp 03/21/18 Mill 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 Is patient in pain?: No Allergies ciprofloxacin [From Cipro] Allergy (Verified 05/14/18 15:39) Hives ciprofloxacin HCl [From Cipro] Allergy (Verified 05/14/18 15:39) Hives buspirone [From BuSpar] Adverse Reaction (Verified 05/14/18 15:39) Other citalopram [From Celexa] Adverse Reaction (Verified 05/14/18 15:39) Other fluoxetine [From Prozac] Adverse Reaction (Verified 05/14/18 15:39) Other Medications Loratadine [Claritin] 10 mg PO DAILY 12/13/16 [History Confirmed 05/14/18] sertraline 100 mg tablet 200 mg PO QDAY #180 tab 01/10/18 [Rx Confirmed 05/14/18] clotrimazole 1 % vaginal cream 1 appful VAGINAL QHS #45 g 04/25/18 [Rx Confirmed 05/14/18] promethazine 12.5 mg tablet 12.5 mg PO Q6H PRN #120 tab 05/08/18 [Rx Confirmed 05/14/18] albuterol sulfate 0.63 mg/3 mL solution for nebulization 0.63 mg INHALATION Q8H PRN #90 ml 05/09/18 [Rx Confirmed 05/14/18] albuterol sulfate HFA 90 mcg/actuation aerosol inhaler 2 puff INHALATION PRN PRN #8.5 g 05/09/18 [Rx Confirmed 05/14/18] Last Menstral Period: 03/07/18 Zika: Zika virus screening: Negative : No PFSH PFSH Medical History Diarrhea (Acute) Nausea (Acute) Abdominal pain (Acute) Asthma (Chronic) Anxiety (Acute) Depression (Acute) Surgical History History of (Acute) S/P tonsillectomy (Acute) Family History Mother Hypertension Cancer Skin Social History Smoking Status: Former smoker second hand exposure: No alcohol intake: current alcohol intake frequency: a few times a month substance use type: does not use caffeine: Yes what type of physical activity do you participate in: none frequency: does not exercise seatbelt use: always Pregancy History 4 Elective abortions Hx Para 2 Spontaneous abortions Past Pregnancies Del. DateName GA/Weeks Outcome Route Bth WeighInfant GeLabor LgtAnesthesiDel LocatProvider FOB t n h a n HPI lmp 03/21/18: Details: CHEN NIEVES is a 32 year old who presents for New OB visit. OB Visit Comments: crl not consistent with CASTRO, recommend changing Menstrual History Last Menstral Period: 03/07/18 Reported LMP: definite Normal amount/duration: Yes On hormonal BC at conception: No Antepartum Record Genetic Screening: Congenital Heart Defect: Other, Neural Tube Defect: Other, Hemoglobinopathy Or Carrier: Other, Cystic Fibrosis: Other, Chromosome Abnormality: Other, Gustavo-Sachs: Other, Hemophilia: Other, Intellectual Disability/Autism: Other, Recurrent Loss/Stillbirth: Other, Other Structural Defect: Patient (father cleft lip), Other Genetic Disease: Other, Maternal Metabolic Disorder: Other Infection History: Live with someone with TB or Exposed to TB: No, Patient or Partner has history of Genital Herpes: No, Rash or Viral illness since last mentrual period: No, Prior GBS-Infected child: No, History of STD: No, HIV Infection: No, History of Hepatitis: No, Recent travel outside of [place]: No, Concern for Hep exposure: No, Varicella immune: Yes Medical History Medical History: Positive: Psychiatric, Depression/ depression, Client Sales And Service Officer surgery, Operations/hospitalizations, Negative: Diabetes, Hypertension, Heart disease, Auto-immune disorder, Kidney disease/UTI, Neurologic/epilepsy, Hepatitis/liver disease, Varicosities/phlebitis, Thyroid dysfunction, Trauma/domestic violence, History of blood transfusions, D (Rh) Sensitized, Pulmonary (e.g.,TB,Asthma), Seasonal allergies, Drug/latex allergies/reactions, Breast, Anesthetic complications, History of abnormal pap, Uterine anomaly/robert, Infertility, Anti-retroviral treatment, Relevant family history, Other ACOG First Trimester First Trimester: Desire for , Alcohol, Tobacco Cessation, Illicit/Recreational Drug/Substance Use, Intimate Partner Violence, Barriers to care, Unstable Housing, Communication Barriers, Environmental/Work Hazards, Anticipated Course of Care, Nurtrition and weight gain, Toxoplasmosis Precations, Use of Any medications, Sexual activity, Exercise, Dental Care, Sauna/Hot tub use, Seat Belt use, Childbirth classes/Hospital facilities, , Travel, Indications for US and Screening for Aneuploidy ROS Const Denies fever(s), Reports system reviewed and no additional complaints, except as docu, Reports fatigue Eyes Reports system reviewed and no additional complaints, except as docu ENT Reports system reviewed and no additional complaints, except as docu Card Denies chest pain, Denies shortness of breath Resp Reports system reviewed and no additional complaints, except as docu, Denies shortness of breath, Denies cough GI Reports nausea, Denies abdominal pain Reports system reviewed and no additional complaints, except as docu Musc Reports system reviewed and no additional complaints, except [facility] Skin/Breast Reports system reviewed and no additional complaints, except as [facility] Neuro Yes system reviewed and no additional complaints, except as [facility] Psych Reports system reviewed and no additional complaints, except as docu Endo Reports fatigue, Reports system reviewed and no additional complaints, except as docu Exam Const General: healthy appearing, comfortable, no acute distress Orientation: alert [facility] Head: normal to inspection, atraumatic, normocephalic Ears: external ears normal, hearing grossly normal bilaterally Nose: nares normal, external nose normal Mouth: oral mucosae normal Teeth and gingiva: dentition normal Eyes General: appearance normal, both eyes and all related structures Neck Neck: no lymphadenopathy, supple, normal visual inspection Thyroid: thyroid normal Chest Chest palpation AND inspection: normal inspection of the chest Breast inspection: normal inspection of the breasts, normal inspection of the axillae Breast palpation: normal palpation of the breasts, normal palpation of the axillae Resp Effort AND Inspection: normal respiratory effort GI Inspection: normal to inspection Palpation: soft, no hepatosplenomegaly General: bladder normal to palpation External Female Exam: normal external appearance, normal appearance of the urethra Urethra: normal appearance of the urethra Speculum Exam - Vagina: normal appearance of the vagina, normal vaginal discharge Speculum Exam - Cervix: normal appearance of the cervix Bimanual Exam- Vagina AND Uterus: bladder normal to palpation, normal bimanual exam, uterus non-tender, other Bimanual Exam- Adnexa, other: adnexae non-tender Skin General: no rashes or lesions noted Neuro Motor: muscle tone normal throughout, no movement abnormalities noted Extrem General: normal to inspection, full ROM Assessment AND Plan Problems 1. Umbilical hernia without obstruction and without gangrene K42.9 stable 2. Anxiety and depression F41.9; F32.9 zoloft 3. History of delivery Z98.891 03/28/14, 10/31/16 plan RLTCS 4. 8 weeks gestation of Z3A.08 sequential and anatomy scan ordered. Plan Patient oriented to practice and discussed care expectations and screenings. ACOG book offered to patient. Discussed routine and specially indicated labs if needed- patient consents to testing. see problem list details for plan information. Optional screening including carrier screenings, neural tube defect screening, sequential screening, and NIPT screening offered to patient and patient chose: sequential- ordered Orders Orders: Supplemental Info ACOG book given and patient encouraged to read about nutrition, exercise, weight gain, and food avoidance in . Coding Level of Care Code OB Routine Diagnoses Umbilical hernia without obstruction and without gangrene K42.9 Hernia type: umbilical Obstruction and gangrene presence: without obstruction or gangrene Anxiety and depression F41.9; F32.9 History of delivery Z98.891 8 weeks gestation of Z3A.08 Weeks of gestation: 8 weeks 05/14/18 1720 <Electronically signed by Ramona Lua MD> Date Ramona Lua MD Cosigner Signature: Date (if applicable) CC: HCG TITER QUANT., Collected: 04/30/2018 Status: F Source: ALFRED SERUM 10:13 AM [facility] REPOSITORY TYPE CODE TESTS RESULT OUT OF RANGE REFERENCE UNITS LAB L700.8000 <9 non-preg mIU/mL High HCG 9307 QUANT. Performed By: #### L700.8000 #### [facility] [address] [place] [address]. [place], [place], [id number] [employer], EMPLOYEE Collected: 04/26/2018 Status: F Source: ALFRED 9:13 AM [facility] REPOSITORY TYPE CODE TESTS RESULT OUT OF RANGE REFERENCE UNITS LAB L100.1000 4.4-11.0 K/mm3 Normal WBC 7.9 LAB L100.1200 4.2-5.4 M/mm3 Normal RBC 4.82 LAB L100.1300 12.0-15.0 g/dl Normal HGB 12.1 LAB L100.1400 37-47 % Normal HCT 38.7 LAB L100.1500 81-99 fL Low MCV 80.3 LAB L100.1600 27.0-32.0 pg Low MCH 25.1 LAB L100.1700 32-36 g/gl Low MCHC 31.3 LAB L100.1810 11.6-14.6 % High RDW CV 16.3 LAB L100.1820 35.1-43.9 fl High RDW SD 47.5 LAB L100.1900 150-450 K/mm3 Normal PLT 259 LAB L100.2000 6.2-12.0 fl Normal MPV 8.8 LAB L100.2110 47-70 % Normal NEUT% 55.0 LAB L100.2210 19-41 % Normal LY% 26.6 LAB L100.2310 0-10 % Normal MONO% 4.8 LAB L100.2410 0-5 % High EO% 13.0 LAB L100.2510 0-1 % Normal BASO% 0.5 LAB L100.2620 2.0-7.7 X10 3/uL Normal Absolute Neut 4.3 LAB L100.2720 0.83-4.51 X10 3/ul Normal Absolute Lymph 2.09 Performed By: #### L100.0200 #### [facility] [address] [place] [address], [id number] [employer], EMPLOYEE Collected: 04/26/2018 Status: F Source: ALFRED 9:13 AM [facility] REPOSITORY TYPE CODE TESTS RESULT OUT OF RANGE REFERENCE UNITS LAB L400.3000 Yellow COLOR Normal Yellow LAB L400.3050 Clear Normal CLARITY Clear LAB L400.3200 Normal mg/dl Normal GLUCOSE, UR Normal LAB L400.3300 Negative mg/dL Normal BILIRUBIN URINE Negative LAB L400.3400 Negative mg/dl Normal KETONE UR Negative LAB L400.3465 1.002-1.030 Normal SP.GR. DIPSTX 1.015 LAB L400.3550 5.0 - 8.0 pH UR Normal 6.5 LAB L400.3600 Negative mg/dl PROT Normal DIPSTX Negative LAB L400.3700 Normal mg/dl Normal UROBILI Normal LAB L400.3750 Negative Normal NITRITE UR Negative LAB L400.3780 Negative /ul Normal OCCULT BLOOD-UR Negative LAB L400.3800 Negative /ul High LEUK ESTERASE 500 Performed By: #### L400.0100 #### [facility] [address] [place], [address] EMPLOYEE PROFILE Collected: 04/26/2018 Status: F Source: ABIGAIL 9:13 AM [facility] REPOSITORY TYPE CODE TESTS RESULT OUT OF RANGE REFERENCE UNITS LAB L501.0100 74-106 mg/dL Normal GLU 97 Result Comment: Please note revised GLUCOSE reference range effective 2017. LAB L501.1000 7-18 mg/dL Normal BUN 8 LAB L501.1100 0.55-1.02 mg/dL Normal CREAT,SERUM 0.67 Result Comment: The validity of the calculated GFR AND GFRAA in patients over 70 years has not been determined. Clinical correlation is essential. LAB L501.1110 >60 mL/min Normal EST GFR 110 Result Comment: Non- GFR Calc LAB L501.1115 >60 mL/min Normal EST GFR - AA 133 Result Comment: GFR Calc LAB L501.1300 10-20 RATIO Normal BUN/CRE 12.0 LAB L501.1400 2.6-6.0 mg/dL Normal URIC 3.7 Result Comment: The drugs N-Acetylcysteine and Metamizole may falsely depress this assay. LAB L501.1500 6.4-8.2 g/dL Normal T PROT 6.7 LAB L501.1800 3.2-5.0 g/dL Normal ALB 3.5 LAB L501.1950 2.2-4.2 g/dL Normal GLOB 3.2 LAB L501.2000 0.9-2.4 RATIO Normal A/G 1.1 LAB L501.2200 8.5-10.1 mg/dL Normal CA 8.5 LAB L501.2300 2.5-4.9 mg/dL Normal PHOS 3.1 LAB L501.4100 15-37 U/L Low AST 8 LAB L501.4305 45-117 U/L Normal ALK P 73 LAB L501.4405 13-56 U/L Normal ALT 22 LAB L501.4600 0.20-1.00 mg/dL Normal T BILI 0.30 LAB L501.4700 0.00-0.30 mg/dL Normal D BILI 0.10 LAB L501.4900 200 mg/dL Normal CHOL 123 Result Comment: <200 mg/dL Desirable 200-240 mg/dL Borderline >240 mg/dL High Risk LAB L501.5000 mg/dL Normal TRIG 32 Result Comment: The drugs N-Acetylcysteine and Metamizole may falsely depress this assay. Serum Triglycerides Reference Interval Normal <150 mg/dL Borderline high 150 - 199 mg/dL High 200 - 499 mg/dL Very High > or = 500 mg/dL LAB L501.5300 136-145 mmol/L Normal NA 141 LAB L501.5600 3.5-5.1 mmol/L Normal K 3.9 LAB L501.5900 98-107 mmol/L High CL 108 LAB L501.6100 21.0-32.0 mmol/L Normal CO2 23.0 LAB L501.6200 5-15 Normal GAP 10 LAB L501.6400 mg/dL Normal HDL 49 Result Comment: The drugs N-Acetylcysteine and Metamizole may falsely depress this assay. Reference Range HDL <40 mg/dL Low HDL Cholesterol HDL >or= 60 mg/dL High HDL Cholesterol LAB L501.6475 Normal CHOL:HDL 2.50 LAB L501.6500 0-130 mg/dL Normal LDL 68 LAB L501.6600 5-40 mg/dL Normal VLDL 6 LAB L504.2610 84-246 U/L Normal LDH 141 Performed By: #### L500.2900 #### [facility] [address] [facility] [place], [place], [id number] NICOTINE URINE DRUG Collected: 04/26/2018 Status: F Source: ABIGAIL SCREEN 9:13 AM [facility] REPOSITORY TYPE CODE TESTS RESULT OUT OF RANGE REFERENCE UNITS LAB L505.6250 TO BE Normal CONFIRMED Result Comment: CONFIRMATORY TESTING FOR ALL POSITIVE URINE DRUG SCREEN RESULTS WILL ONLY BE SENT OUT UPON PHYSICIAN ORDER. The results of Urine Drug Screen methods provide only preliminary analytical test results. A more specific alternate chemical method must be used in order to obtain a confirmed analytical result. Gas chromatography/mass spectrometery (GC/MS) is the preferred confirmatory method. Clinical consideration and professional judgement should be applied to any drug of abuse test result, particularly when preliminary positive results are used. LAB L505.6270 <200 ng/mL High COT DRG Positive SCREEN Result Comment: Cotinine is the first-stage metabolite of Nicotine. Performed By: #### L505.6219 #### [facility] [address] [place], [address] INTERNAL MEDICINE Observed: 04/19/2018 Status: F Source: ABIGAIL OFFICE VISIT 9:42 AM [facility] [address] [place] [address] OFFICE VISIT Date of Service: 04/18/18 MR#: [id number] Acct: [id number] Name: CHEN NIEVES Rep #: [id number] : 1985 Provider: Javad Hunt NP Age/Sex: 32/F Location: [facility] Status: Signed Intake Vital Signs04/18/18 Height 5 ft 4 in Intake Visit Reasons: employee physical Chief Complaint: employment physical Is patient in pain?: No Allergies ciprofloxacin [From Cipro] Allergy (Verified 09/21/17 11:42) Hives ciprofloxacin HCl [From Cipro] Allergy (Verified 09/21/17 11:42) Hives buspirone [From BuSpar] Adverse Reaction (Verified 09/21/17 11:42) Other citalopram [From Celexa] Adverse Reaction (Verified 09/21/17 11:42) Other fluoxetine [From Prozac] Adverse Reaction (Verified 09/21/17 11:42) Other Medications Loratadine [Claritin] 10 mg PO DAILY 07/12/16 [History Confirmed 03/02/18] albuterol sulfate HFA 90 mcg/actuation aerosol inhaler 2 puff INHALATION PRN PRN #8.5 g 09/22/17 [Rx Confirmed 03/02/18] sertraline 100 mg tablet 200 mg PO QDAY #180 tab 01/10/18 [Rx Confirmed 03/02/18] Patient : Yes PFSH Medical History Diarrhea (Acute) Nausea (Acute) Abdominal pain (Acute) Asthma (Chronic) Anxiety (Acute) Depression (Acute) Surgical History History of (Acute) S/P tonsillectomy (Acute) Family History Mother Hypertension Cancer Skin Social History Smoking Status: Former smoker second hand exposure: No alcohol intake: current alcohol intake frequency: a few times a month substance use type: does not use caffeine: Yes what type of physical activity do you participate in: none frequency: does not exercise seatbelt use: always HPI HPI Chief Complaint: employment physical Details: CHEN NIEVES, is a 32 F who presents to the office today for well visit. Patient has a past medical history as listed above. Patient presents today with no problems or concerns. She is here to have annual wellness check, she is an employee for [employer]. Patient is to have screening blood work done which is pending at this time. The patient is 4 weeks now and states that she is trying to work on weight loss and her diet by following the keto diet. The patient otherwise denies any fever, chills, nausea, vomiting, shortness of breath, chest pain or pressure, palpitations, orthopnea, lower extremity edema, syncope or presyncopal episodes. ROS Const Constitutional: No weight change, body ache, chills, fatigue, sleep problems, fever(s), change in appetite, snoring, weakness, frequent falls, headache(s) or excessive sweating Eyes Eyes: No change in vision, eye pain, light sensitivity or blurry vision ENT ENT: No headache(s), abnormal hearing, ear pain, tinnitus, nasal congestion, sore throat or neck pain Resp Respiratory: No snoring, cough, shortness of breath or wheezing Cardio Cardiology: No excessive sweating, chest pain at rest, chest pain with exertion, shortness of breath, dyspnea on exertion, palpitations, orthopnea or lightheadedness Gastro GI: No abdominal pain, change in bowel habits, constipation, diarrhea, vomiting, nausea/dyspepsia or cramping Genitourinary-Female: No burning urination, painful urination, urinary incontinence, urinary frequency, abnormal vaginal bleeding, pelvic pain or other Musc Musculoskeletal: No neck pain, abnormal walking, joint pain, back pain, limited range of motion, numbness, tingling or muscle weakness Skin Skin: No redness, dry skin, itching, lesions, wounds or rash Neuro Neurology: No weakness, frequent falls, headache(s), abnormal hearing, abnormal walking, numbness, tingling, abnormal speech, dizziness or memory loss Psych Psychiatric: No change in appetite, No memory loss, No anxiety, No depression, No Thoughts of harming yourself/Others Endo Endocrine: No fatigue, excessive sweating, cold intolerance, increased thirst/drinking, heat intolerance, flushing or increased hunger Aller/Imm Allergy/Immunologic: No wheezing, itchy eyes, hives or seasonal allergy symptoms Joaquín/Lymp Hematologic/Lymphatic: No easy bleeding, easy bruising or enlarged lymph nodes Exam Const General: cooperative, comfortable, no acute distress Nutritional Appearance: well nourished, obese Orientation: alert, oriented x3 Limitations: mental status not altered [facility] Head: normal to inspection Ears: hearing grossly normal bilaterally Nose: external nose normal Eyes General: appearance normal, both eyes and all related structures Visual Montoya: normal visual montoya by confrontation Alignment and Position: alignment normal Periorbital: periorbital findings normal Eyelids: eyelids normal Sclera: sclerae normal Pupils: PERRL EOM: EOM intact bilaterally Neck Neck: normal visual inspection, full ROM, no lymphadenopathy Thyroid: thyroid normal Resp Effort AND Inspection: normal respiratory effort, able to speak in complete sentences, normal respiratory pattern, symmetric chest movement, no audible wheezes, no cough Auscultation: Bilateral: Clear to Auscultation Cardio Palpation: normal PMI Rate: regular rate Heart Sounds: S1 normal, S2 normal, normal S1 and S2, no click, no gallops, no murmurs, no rubs Pulses: radial pulses present, dorsalis pedis pulses present GI Inspection: normal to inspection Auscultation: normal bowel sounds, no hyperactive bowel sounds, no hypoactive bowel sounds Palpation: soft, no hepatosplenomegaly, nontender Musc Musculoskeletal: No joint tenderness, decreased ROM or muscle weakness Skin General: no rashes or lesions noted, elasticity normal, turgor normal Lesions: no lesions Rashes: no rashes Neuro General: alert, awake, oriented x3, CN's II-XI intact bilaterally, moves all extremities, gait normal Cranial Nerves: CN's II-XI intact bilaterally Cognition: normal cognition Speech: speech normal Gait: normal gait Motor: muscle tone normal throughout Extrem General: normal to inspection, normal gait, no edema, no pedal edema, full ROM Psych Appearance: grossly normal Mental Status: mental status grossly normal Mood: congruent mood Affect: normal affect Attitude: cooperative Thought Process: normal Assessment AND Plan 1. Well adult exam Z00.00 Plan Normal well exam, no current problems or concerns. Patient to have lab work drawn tomorrow. 2. Z34.90 Plan Patient has initial appointment with next week. Denies any problems at this time. 3. Obesity (BMI 30-39.9) E66.9 Plan Pt to continue working on diet and weight loss. Plan Detail Follow Up as previously scheduled or sooner if needed Coding Level of Care Code Off vis,est,prev 18-39yrs Diagnoses Well adult exam Z00.00 Z34.90 Obesity (BMI 30-39.9) E66.9 04/19/18 0942 <Electronically signed by Javad GONZALEZ> Date Javad GONZALEZ Cosigner Signature: Date (if applicable) CC: HCG TITER QUANT., Collected: 04/16/2018 Status: F Source: ABIGAIL SERUM 9:33 AM [facility] REPOSITORY TYPE CODE TESTS RESULT OUT OF RANGE REFERENCE UNITS LAB L700.8000 <9 non-preg mIU/mL High HCG 65 QUANT. Performed By: #### L700.8000 #### [facility] [address] [place], [place], [address] HCG TITER QUANT., Collected: 04/14/2018 Status: F Source: ABIGAIL SERUM 8:05 AM [facility] REPOSITORY TYPE CODE TESTS RESULT OUT OF RANGE REFERENCE UNITS LAB L700.8000 <9 non-preg mIU/mL High HCG 27 QUANT. Performed By: #### L700.8000 #### [facility] [address] [place], [place], [address] HCG TITER QUANT., Collected: 04/12/2018 Status: F Source: ABIGAIL SERUM 2:01 PM [facility] REPOSITORY TYPE CODE TESTS RESULT OUT OF RANGE REFERENCE UNITS LAB L700.8000 <9 non-preg mIU/mL Normal HCG 8 QUANT. Performed By: #### L700.8000 #### [facility] [address] [place], [place], [address] INTERNAL MEDICINE Observed: 03/05/2018 Status: F Source: ABIGAIL OFFICE VISIT 4:33 PM [facility] [address] [place] [address] [place] [address] OFFICE VISIT Date of Service: 03/02/18 MR#: [id number] Acct: [id number] Name: CHEN NIEVES Rep #: [id number] : 1985 Provider: Rekha Payne MD Age/Sex: 32/F Location: [facility] [place] Status: Signed Intake Vital Signs03/02/18 Height 5 ft 4 in Intake Visit Reasons: 2 MO FU Chief Complaint: 2 month FU Is patient in pain?: Yes (chest, feels a cough coming on ) Pain scale (1-10): 4 Allergies ciprofloxacin [From Cipro] Allergy (Verified 09/21/17 11:42) Hives ciprofloxacin HCl [From Cipro] Allergy (Verified 09/21/17 11:42) Hives buspirone [From BuSpar] Adverse Reaction (Verified 09/21/17 11:42) Other citalopram [From Celexa] Adverse Reaction (Verified 09/21/17 11:42) Other fluoxetine [From Prozac] Adverse Reaction (Verified 09/21/17 11:42) Other Medications Loratadine [Claritin] 10 mg PO DAILY 07/12/16 [History Confirmed 03/02/18] albuterol sulfate HFA 90 mcg/actuation aerosol inhaler 2 puff INHALATION PRN PRN #8.5 g 09/22/17 [Rx Confirmed 03/02/18] sertraline 100 mg tablet 200 mg PO QDAY #180 tab 01/10/18 [Rx Confirmed 03/02/18] Is last menstrual period known: Yes PFSH Medical History Diarrhea (Acute) Nausea (Acute) Abdominal pain (Acute) Asthma (Chronic) Anxiety (Acute) Depression (Acute) Surgical History History of (Acute) S/P tonsillectomy (Acute) Family History Mother Hypertension Cancer Skin Social History (Reviewed 03/02/18 @ 15:31 by Joy Alex Smoking Status: Former smoker second hand exposure: No alcohol intake: current alcohol intake frequency: a few times a month substance use type: does not use caffeine: Yes what type of physical activity do you participate in: none frequency: does not exercise seatbelt use: always HPI HPI Chief Complaint: 2 month FU Details: CHEN NIEVES, is a 32yo F who presents to the office today for follow-up of depression. She is currently maxed out on Zoloft and states that her depression is better however she has had some difficulty falling asleep. She otherwise feels well. Also reports new onset nasal congestion and sore throat. (History of sick contacts) ROS Const Constitutional: Positive for body ache; no chills, headache(s), weakness or fever(s) Eyes Eyes: No blurry vision, change in vision, eye pain or discharge ENT ENT: Positive for sinus pain, sore throat and nasal congestion; no headache(s), abnormal hearing, ear pain, ear pressure, tinnitus, dizziness/vertigo or balance problems Resp Respiratory: Positive for cough; no shortness of breath or wheezing Cardio Cardiology: No chest pain at rest, shortness of breath, dyspnea on exertion or palpitations Gastro GI: No abdominal pain or bloating Neuro Neurology: No headache(s), weakness or abnormal hearing Aller/Imm Allergy/Immunologic: No wheezing Exam Const General: cooperative, no acute distress Nutritional Appearance: obese Orientation: alert, awake, oriented x3 [facility] Head: atraumatic, normocephalic Ears: hearing grossly normal bilaterally Resp Effort AND Inspection: normal respiratory effort, able to speak in complete sentences Auscultation: Bilateral: Clear to Auscultation Cardio Rate: regular rate Rhythm: regular rhythm Heart Sounds: S1 normal, S2 normal GI Inspection: visible herniation Palpation: soft, no hepatosplenomegaly Neuro General: alert, awake, oriented x3, moves all extremities, CN's II-XI intact bilaterally Extrem General: no clubbing, cyanosis or edema Psych Appearance: grossly normal Mental Status: mental status grossly normal Affect: normal affect Assessment AND Plan 1. Anxiety and depression F41.9; F32.9 Plan Depression appears better however she does have problems falling asleep. Describes this is been unable to short her brain off. ? Poorly controlled anxiety. Sleep hygiene measures discussed for now. Will hold off switching antidepressants until she is done breast-feeding possibly this will be in the near future. Advised to take Zoloft in the morning and not at night. Follow-up in 3 months. 2. URI (upper respiratory infection) J06.9 Plan History of sick contacts. Possibly viral. Conservative management for now. Advised to call or go to the ER if there is any worsening. This note was generated with [employer] dictation software. It may contain incorrect words, spelling, and punctuation that were not noted in checking the note before signing. Plan Detail Follow Up 3 Months Coding Level of Care Code Off vis,est,level 3 Diagnoses Anxiety and depression F41.9; F32.9 URI (upper respiratory infection) J06.9 03/05/18 1633 <Electronically signed by Rekha Payne MD> Date Rekha Payne MD Cosigner Signature: Date (if applicable) CC: INTERNAL MEDICINE Observed: 01/11/2018 Status: F Source: ABIGAIL OFFICE VISIT 6:54 PM [facility] [address] [place] [address] [address] [place] [address] OFFICE VISIT Date of Service: 01/10/18 MR#: [id number] Acct: [id number] Name: CHEN NIEVES Rep #: [id number] : 1985 Provider: Rekha Payne MD Age/Sex: 32/F Location: [facility] Status: Signed Intake Vital Signs01/10/18 Height 5 ft 4 in Intake Visit Reasons: NOT SURE PT LMOM NEEDS APPT HOMA Chief Complaint: anxiety Is patient in pain?: No Allergies ciprofloxacin [From Cipro] Allergy (Verified 09/21/17 11:42) Hives ciprofloxacin HCl [From Cipro] Allergy (Verified 09/21/17 11:42) Hives buspirone [From BuSpar] Adverse Reaction (Verified 09/21/17 11:42) Other citalopram [From Celexa] Adverse Reaction (Verified 09/21/17 11:42) Other fluoxetine [From Prozac] Adverse Reaction (Verified 09/21/17 11:42) Other Medications Loratadine [Claritin] 10 mg PO DAILY 07/12/16 [History Confirmed 01/10/18] albuterol sulfate HFA 90 mcg/actuation aerosol inhaler 2 puff INHALATION PRN PRN #8.5 g 09/22/17 [Rx Confirmed 01/10/18] sertraline 100 mg tablet 200 mg PO QDAY #180 tab 01/10/18 [Rx Confirmed 01/10/18] PFSH Medical History Diarrhea (Acute) Nausea (Acute) Abdominal pain (Acute) Asthma (Chronic) Anxiety (Acute) Depression (Acute) Surgical History History of (Acute) S/P tonsillectomy (Acute) Family History Mother Hypertension Cancer Skin Social History Smoking Status: Former smoker second hand exposure: No alcohol intake: current alcohol intake frequency: a few times a month substance use type: does not use caffeine: Yes what type of physical activity do you participate in: none frequency: does not exercise seatbelt use: always HPI HPI Chief Complaint: anxiety Details: CHEN NIEVES, is a 32yo F who presents to the office today for follow-up of anxiety and depression. She has noted significant difficulties concentrating and coping with with her activities of daily living. Slightly improved after increasing Zoloft 150 but still some difficulty. She otherwise feels well. ROS Const Constitutional: No weight change, body ache, chills, fatigue, sleep problems, fever(s), change in appetite, snoring, weakness, frequent falls, headache(s) or excessive sweating Eyes Eyes: No change in vision, eye pain, light sensitivity or blurry vision ENT ENT: No headache(s), abnormal hearing, ear pain, tinnitus, nasal congestion, sore throat or neck pain Resp Respiratory: No snoring, cough, shortness of breath or wheezing Cardio Cardiology: No excessive sweating, chest pain at rest, chest pain with exertion, shortness of breath, dyspnea on exertion, palpitations, orthopnea or lightheadedness Gastro GI: No abdominal pain, change in bowel habits, constipation, diarrhea, vomiting, nausea/dyspepsia or cramping Genitourinary-Female: No burning urination, painful urination, urinary incontinence, urinary frequency, abnormal vaginal bleeding, pelvic pain or other Musc Musculoskeletal: No neck pain, abnormal walking, joint pain, back pain, limited range of motion, numbness or tingling Skin Skin: No redness, dry skin, itching, lesions, wounds or rash Neuro Neurology: No weakness, frequent falls, headache(s), abnormal hearing, abnormal walking, numbness, tingling, abnormal speech, dizziness or memory loss Psych Psychiatric: No change in appetite, No memory loss, Positive for anxiety, No depression, No Thoughts of harming yourself/Others, Positive for mood swings, Positive for difficulty concentrating Endo Endocrine: No fatigue, excessive sweating, cold intolerance, increased thirst/drinking, heat intolerance, flushing or increased hunger Aller/Imm Allergy/Immunologic: No wheezing, itchy eyes, hives or seasonal allergy symptoms Joaquín/Lymp Hematologic/Lymphatic: No easy bleeding, easy bruising or enlarged lymph nodes Exam Const General: cooperative, no acute distress Nutritional Appearance: obese Orientation: alert, awake, oriented x3 [facility] Head: atraumatic, normocephalic Ears: hearing grossly normal bilaterally Resp Effort AND Inspection: normal respiratory effort, able to speak in complete sentences Auscultation: Bilateral: Clear to Auscultation Cardio Rate: regular rate Rhythm: regular rhythm Heart Sounds: S1 normal, S2 normal GI Inspection: visible herniation Palpation: soft, no hepatosplenomegaly Neuro General: alert, awake, oriented x3, moves all extremities, CN's II-XI intact bilaterally Extrem General: no clubbing, cyanosis or edema Psych Appearance: grossly normal Mental Status: mental status grossly normal Affect: normal affect Assessment AND Plan 1. Anxiety and depression F41.9; F32.9 Plan Chronic. Not optimally controlled. Will max out Zoloft to 200 mg daily. Possible counseling in the future. Lifestyle modifications discussed. Follow-up in 2 months. 2. Asthma J45.909 Plan Stable. Will follow. 3. Abdominal hernia K46.9 Plan Chronic. Follows up with general surgery. Plan is for repair after childbearing is completed. No concerns at this time. This note was generated with FanMiles[employer] software. It may contain incorrect words, spelling, and punctuation that were not noted in checking the note before signing. Plan Detail Other Medications New: Discontinued: hydrocortisone 2.5% Discontinued Reason: Pt no longe1 applic Topical BID Joy vogt taking Follow Up 2 Months Coding Level of Care Code Off vis,est,level 3 Diagnoses Anxiety and depression F41.9; F32.9 Asthma J45.909 Abdominal hernia K46.9 01/11/18 1854 <Electronically signed by Rekha Payne MD> Date Rekha Payne MD Cosigner Signature: Date (if applicable) CC: CBC W/DIFF, AUTOMATED Collected: 10/12/2017 Status: F Source: ABIGAIL 9:00 AM [facility] REPOSITORY TYPE CODE TESTS RESULT OUT OF RANGE REFERENCE UNITS LAB L100.1000 4.4-11.0 K/mm3 Normal WBC 7.7 LAB L100.1200 4.2-5.4 M/mm3 Normal RBC 5.10 LAB L100.1300 12.0-15.0 g/dl Normal HGB 12.9 LAB L100.1400 37-47 % Normal HCT 40.4 LAB L100.1500 81-99 fL Low MCV 79.2 LAB L100.1600 27.0-32.0 pg Low MCH 25.3 LAB L100.1700 32-36 g/gl Low MCHC 31.9 LAB L100.1810 11.6-14.6 % Normal RDW CV 14.0 LAB L100.1820 35.1-43.9 fl Normal RDW SD 40.0 LAB L100.1900 150-450 K/mm3 Normal PLT 297 LAB L100.2000 6.2-12.0 fl Normal MPV 8.8 LAB L100.2100 47-70 % Normal NEUT% 66.6 LAB L100.2200 19-41 % Normal LY% 24.5 LAB L100.2300 0-10 % Normal MONO% 4.8 LAB L100.2400 0-5 % Normal EO% 3.5 LAB L100.2500 0-1 % Normal BASO% 0.5 LAB L100.2550 0.0-0.9 % Normal IM GRAN % 0.100 Result Comment: IG% - Immature Granulocytes (promyelocytes, myelocytes and metamyelocytes) > 1% indicates that a LEFT SHIFT is Present. LAB L100.2620 2.0-7.7 X10 3/uL Normal Absolute Neut 5.2 LAB L100.2720 0.83-4.51 X10 3/ul Normal Absolute Lymph 1.89 Performed By: #### L100.0100, L501.9520 #### [facility] [address] [place], [address] THYROID STIM HORMONE Collected: 10/12/2017 Status: F Source: ABIGAIL (TSH) 9:00 AM [facility] REPOSITORY TYPE CODE TESTS RESULT OUT OF RANGE REFERENCE UNITS LAB L501.9520 0.358-3.74 uIU/mL Normal TSH 0.46 Performed By: #### L100.0100, L501.9520 #### [facility] [address] [place], [address] VITAMIN D 1,25-DIHYDROXY Collected: 10/12/2017 Status: F Source: ABIGAIL 9:00 AM [facility] REPOSITORY TYPE CODE TESTS RESULT OUT OF RANGE REFERENCE UNITS LAB L3300.0960 19.9-79.3 pg/mL High VITD 1,25 89.0 97212 Result Comment: Performed at: - [facility] [id number] Bedspread Cutter: Lukas Hatfield MD, Phone: [phone] Performed By: #### L3300.0960 #### [facility] (refer to report for specific site) refer to report for address and phone number Observed: 09/21/2017 Status: F Source: ABIGAIL CULTURE, R/O STREP A 6:27 PM [facility] REPOSITORY ROMELIA Culture No Streptococcus group A isolated. * This cultures intended use is to screen for Beta Streptococcus A only. All other pathogens and potential pathogens will not be screened for or reported. If a complete workup of all potential pathogens is indicated an order for a routine throat culture is required. Performed By: #### M100.010 #### [facility] [address] 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 Is patient in pain?: No Allergies ciprofloxacin [From Cipro] Allergy (Verified 09/21/17 11:42) Hives ciprofloxacin HCl [From Cipro] Allergy (Verified 09/21/17 11:42) Hives buspirone [From BuSpar] Adverse Reaction (Verified 09/21/17 11:42) Other citalopram [From Celexa] Adverse Reaction (Verified 09/21/17 11:42) Other fluoxetine [From Prozac] Adverse Reaction (Verified 09/21/17 11:42) Other Medications Albuterol Inhaler [Ventolin Hfa] 2 puff INHALATION PRN PRN 03/02/14 [History Confirmed 09/21/17] Vit Calc,Iron,Folic [ Vitamins] 1 tab PO DAILY 03/10/16 [History Confirmed 09/21/17] Loratadine [Claritin] 10 mg PO DAILY 07/12/16 [History Confirmed 09/21/17] Omeprazole [Prilosec] 10 mg PO DAILY 07/12/16 [History Confirmed 09/21/17] Oxycodone HCl/Acetaminophen [Percocet 5/325] 1 - 2 tab PO Q6H PRN PRN #40 tab 11/01/16 [Rx Confirmed 09/21/17] Docusate Sodium [Colace] 100 mg PO BID PRN PRN #60 cap 11/03/16 [Rx Confirmed 09/21/17] Naproxen Sodium [Naproxen Sodium ER] 375 mg PO TID PRN #60 tab 11/03/16 [Rx Confirmed 09/21/17] hydrocortisone 2.5 % topical ointment 1 applic TOPICAL BID #28.35 g 07/28/17 [Rx Confirmed 09/21/17] norgestimate 0.25 mg-ethinyl estradiol 35 mcg tablet 1 tab PO QDAY #28 tab 07/28/17 [Rx Confirmed 09/21/17] etonogestrel-ethinyl estradiol 0.12 mg -0.015 mg/24 hr vaginal ring 1 vag ring VAGINAL ONCE 28 Days #1 ea 08/19/17 [Rx Confirmed 09/21/17] PFSH Medical History Diarrhea (Acute) Nausea (Acute) Abdominal pain (Acute) Asthma (Acute) Anxiety (Acute) Depression (Acute) Surgical History History of (Acute) S/P tonsillectomy (Acute) Family History Mother Hypertension Cancer Skin Social History Smoking Status: Former smoker second hand exposure: No alcohol intake: current alcohol intake frequency: a few times a month substance use type: does not use caffeine: Yes what type of physical activity do you participate in: none frequency: does not exercise seatbelt use: always HPI HPI HPI: CHEN NIEVES, is a 32 F who presents to the office today for umbilical hernia. She reports she noticed the umbilical hernia after her first . She says that it does stick out but it is easily reducible and it is painful. The pain does not radiate and she has no other hernias per ROS General General: Yes weight change and fatigue Musc Musculoskeletal: No back problems, arthritis, rheumatoid arthritis, gout or joint pain Cardio Cardiovascular: No murmur, pacemaker, heart disease, atrial fibrillation, high blood pressure, heart attack, heart stent, palpitations, shortness of breat with exertion or chest pain Psych Psychiatric: Yes depression and anxiety Resp Respiratory: No shortness of breath, No sleep apnea, No cough, No COPD, Yes asthma, No emphysema, No wheezing Gastro Gastrointestinal: Yes abdominal pain, Yes nausea or vomiting, Yes diarrhea, No constipation, No blood in stool, No acid reflux, No hemorrhoids, No ulcers, No gallbladder problem, No black,tarry stools Exam Resp Auscultation: clear to auscultation bilaterally Cardio Rate: regular rate Rhythm: regular rhythm Heart Sounds: no murmurs GI Other: Patient's abdomen is soft, nontender, nondistended. She does have a 4-5 cm umbilical hernia and diastases. The hernia is soft and easily reducible. Assessment AND Plan Problems 1. Umbilical hernia without obstruction and without gangrene K42.9 Plan 1. She does have a large reducible umbilical hernia. I did offer her repair and discussed this with her in detail. She would not like repair at this time as she is still planning on having more kids. I did mention that having subsequent pregnancies after her umbilical hernia was repaired would put it at risk of having a recurrence. I did equal opportunity counselor her on the risks of observing a hernia including incarceration and strangulation. The patient understands the risks. 2. Follow-up when she is ready to have her hernia repaired. Jonn Solano MD Pager: [facility] [address] [place] [address] Office: Coding Level of Care Code Off vis,new,level 3 Diagnoses Umbilical hernia without obstruction and without gangrene K42.9 Obstruction and gangrene presence: without obstruction or gangrene 09/21/17 1349 <Electronically signed by Jonn Solano MD> Date Jonn Solano MD Cosign Signature: Date (if applicable) CC: Rekha Payne MD URGENT CARE VISIT Observed: 09/21/2017 Status: F Source: ABIGAIL REPORT 1:26 PM [facility] REPOSITORY [facility] [address] [place], [place] [id number] OFFICE VISIT Date of Service: 09/21/17 MR#: [id number] Acct: [id number] Name: CHEN NIEVES Rep #: [id number] : 1985 Provider: Gagan RUTHERFORD Age/Sex: 32/F Location[facility] Status: Signed Intake Vital Signs09/21/17 Height 5 ft 4 in 09/21/17 Weight: 250 lb 09/21/17 Body Mass Index (BMI) 42.9 09/21/17 Blood Pressure 128/88 Intake Visit Reasons: SORE THROAT,CONGESTION Chief Complaint: Sore throat, congestion Mill 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 Is patient in pain?: No Allergies ciprofloxacin [From Cipro] Allergy (Verified 09/21/17 11:42) Hives ciprofloxacin HCl [From Cipro] Allergy (Verified 09/21/17 11:42) Hives buspirone [From BuSpar] Adverse Reaction (Verified 09/21/17 11:42) Other citalopram [From Celexa] Adverse Reaction (Verified 09/21/17 11:42) Other fluoxetine [From Prozac] Adverse Reaction (Verified 09/21/17 11:42) Other Medications Albuterol Inhaler [Ventolin Hfa] 2 puff INHALATION PRN PRN 03/02/14 [History Confirmed 09/21/17] Vit Calc,Iron,Folic [ Vitamins] 1 tab PO DAILY 03/10/16 [History Confirmed 09/21/17] Loratadine [Claritin] 10 mg PO DAILY 07/12/16 [History Confirmed 09/21/17] Omeprazole [Prilosec] 10 mg PO DAILY 07/12/16 [History Confirmed 09/21/17] Oxycodone HCl/Acetaminophen [Percocet 5/325] 1 - 2 tab PO Q6H PRN PRN #40 tab 11/01/16 [Rx Confirmed 09/21/17] Docusate Sodium [Colace] 100 mg PO BID PRN PRN #60 cap 11/03/16 [Rx Confirmed 09/21/17] Naproxen Sodium [Naproxen Sodium ER] 375 mg PO TID PRN #60 tab 11/03/16 [Rx Confirmed 09/21/17] hydrocortisone 2.5 % topical ointment 1 applic TOPICAL BID #28.35 g 07/28/17 [Rx Confirmed 09/21/17] norgestimate 0.25 mg-ethinyl estradiol 35 mcg tablet 1 tab PO QDAY #28 tab 07/28/17 [Rx Confirmed 09/21/17] etonogestrel-ethinyl estradiol 0.12 mg -0.015 mg/24 hr vaginal ring 1 vag ring VAGINAL ONCE 28 Days #1 ea 08/19/17 [Rx Confirmed 09/21/17] [facility] Medical History Diarrhea (Acute) Nausea (Acute) Abdominal pain (Acute) Asthma (Acute) Anxiety (Acute) Depression (Acute) Surgical History History of (Acute) S/P tonsillectomy (Acute) Family History Mother Hypertension Cancer Skin Social History Smoking Status: Former smoker second hand exposure: No alcohol intake: current alcohol intake frequency: a few times a month substance use type: does not use caffeine: Yes what type of physical activity do you participate in: none frequency: does not exercise seatbelt use: always HPI HPI Chief Complaint: Sore throat, congestion Details: CHEN NIEVES, is a 32 F who presents to the office today for initial evaluation approximately 24 hour history of progressively worsening nasal congestion and sore throat. She has no complaints fever, chills, sweats, rash, chest pain/shortness of breath, cough. She is a non-smoker. She notes no family members in her household with similar signs or symptoms. She has no other associated symptoms no other alleviating or aggravating factors. ROS Const Constitutional: No excessive sweating, abnormal sleep pattern, chills, fever(s), night sweats, headache(s) or body ache Eyes Eyes: No change in vision ENT ENT: Positive for sore throat and nasal congestion; no abnormal hearing, ear pain, ear discharge, ear pressure, hearing loss, post nasal drip, sinus pressure or headache(s) Resp Respiratory: No cough or chest congestion Cardio Cardiology: No excessive sweating, chest pain at rest, chest pain with exertion, shortness of breath, dyspnea on exertion, irregular heart rhythm, generalized swelling or leg pain with exertion Gastro GI: No abdominal pain, change in stool character or change in bowel habits Musc Musculoskeletal: No joint pain, back pain or limited range of motion Skin Skin: No change in hair or sores Neuro Neurology: No abnormal hearing, abnormal speech, abnormal movements or headache(s) Psych Psychiatric: No abnormal sleep pattern Endo Endocrine: No excessive sweating, change in body appearance, cold intolerance or heat intolerance Aller/Imm Allergy/Immunologic: No food intolerance Joaquín/Lymp Hematologic/Lymphatic: No easy bruising Exam Const General: cooperative, healthy appearing, no acute distress Nutritional Appearance: average body habitus Orientation: alert, awake, oriented x3 HENMT Head: normal to inspection Ears: hearing grossly normal bilaterally, external ears normal, TM's normal bilaterally, EAC's normal Nose: external nose normal, nares normal, septum normal, nasal discharge (Boggy nares) clear Face and sinus: normal facial exam, sinuses nontender, face symmetric Mouth: oral mucosae normal, lip normal, oropharynx normal, tongue normal Teeth and gingiva: dentition normal, gingiva normal Throat: posterior oropharynx normal, uvula midline, tonsils abnormal (Trace erythema; rapid strep test today negative) Eyes General: appearance normal, both eyes and all related structures Neck Neck: normal visual inspection, full ROM, no lymphadenopathy, no meningeal signs, supple Neck mass: No Thyroid: thyroid normal Lymphatic: no lymphadenopathy noted Chest Chest palpation AND inspection: normal inspection of the chest Resp Effort AND Inspection: normal respiratory effort, able to speak in complete sentences, symmetric chest movement, no cough Auscultation: Bilateral: Clear to Auscultation Cardio Palpation: normal PMI Rate: regular rate Rhythm: regular rhythm Heart Sounds: S1 normal, S2 normal, no gallops, no murmurs, no rubs Pulses: radial pulses present GI Inspection: normal to inspection Skin General: no rashes or lesions noted Neuro General: alert, awake, oriented x3, gait normal Cognition: normal cognition Speech: speech normal Gait: normal gait Motor: muscle tone normal throughout Sensory Exam: no sensory deficits noted Extrem General: normal to inspection Psych Appearance: grossly normal Mental Status: mental status grossly normal Mood: congruent mood Affect: normal affect Speech and Movement: speech and movement normal Attitude: cooperative Thought Process: normal Thought Content: normal Judgment: judgment good Results BMSRAPIDSTREPA Office Rapid Strep A Negative Last Edit by Pham Felice Licea on 09/21/17 11:55 Assessment AND Plan Problems 1. URI (upper respiratory infection) J06.9 2. Pharyngitis J02.9 Plan Patient is aware today's rapid strep test was negative therefore throat culture sent to lab for further evaluation. Clear fluids, rest, Advil/Tylenol/loratadine as needed for symptomatic relief. Follow-up with PCP in 5-7 days should symptoms not improved, sooner should symptoms worsen or any other concerns develop. Patient states knowledge understanding all the above. This note was generated with [employer] dictation software. It may contain incorrect words, spelling, and punctuation that were not noted in checking the note before signing. Orders Orders: Coding Level of Care Code Off vis,new,level 3 Diagnoses URI (upper respiratory infection) J06.9 Pharyngitis J02.9 09/21/17 1326 <Electronically signed by Gagan RUTHERFORD> Date Gagan RUTHERFORD Cosigner Signature: Date (if applicable) CC: ALLERGIES ALLERGIES DATE TYPE / CODE NAME / CODE REACTION SEVERITY SOURCE 08/06/2018 Drug ciprofloxacin Hives Unknown [place] Allergy/416 HCl/[id number](RXNO [facility] 075153[facility]) Repository 08/06/2018 Drug ciprofloxacin/F0060 Hives Unknown [place] Allergy/416 02142(RXNORM) [facility] 962163([facility] ED CT) Repository 08/06/2018 Drug buspirone/[id number] Other Unknown [place] Allergy/416 6(RXNORM) [facility] 328572([facility] ED CT) Repository 08/06/2018 Drug fluoxetine/P5700250 Other Unknown [place] Allergy/416 13(RXNORM) [facility] 935150([facility]) Repository 08/06/2018 Drug citalopram/G6465749 Other Unknown [place] Allergy/416 06(RXNORM) [facility] 318048([facility]) Repository ENCOUNTERS ENCOUNTERS ADMIT/DISCHARGE ACCOUNT ADMITTING ENCOUNTER LOCATION SOURCE NUMBER CLASS 08/20/2018 [id number] Ambulatory Building:[facility] Repository 08/06/2018/08/06/19 [id number] Ambulatory BMSBuilding:B [place] [facility] Repository 08/02/2018/08/02/19 [id number] Ambulatory Building:[address] Repository 07/23/2018/07/23/20 [id number] Ambulatory BMSBuilding:[facility] [place] [facility] Repository 07/15/2018/07/15/20 [id number] Ambulatory BMSBuilding:B [place] 18 [facility] Repository 07/12/2018 [id number] Ambulatory [facility] Hospital ing:LAB Repository 07/11/2018/07/11/20 [id number] Ambulatory BMSBuilding:B [place] [address] [facility] Hospital Repository 06/14/2018 [id number] Ambulatory Building:[facility] Repository 06/11/2018/06/11/20 [id number] Ambulatory BMSBuilding:[facility] [place] [address] Hospital Repository 05/14/2018 [id number] Ambulatory [facility] Hospital[facility] Hospital ing:[facility] Repository 05/14/2018/05/14/20 [id number] Ambulatory BMSBuilding:[facility] [place] [address] Hospital Repository 04/30/2018 [id number] Ambulatory [facility] Hospital[facility] Hospital ing:LAB Repository 04/26/2018 [id number] Ambulatory [facility] Hospital[facility] Hospital ing:EMPH Repository 04/18/2018/04/18/20 [id number] Ambulatory BMSBuilding:B [place] 18 [place].[facility] Repository 04/16/2018 [id number] Ambulatory [facility] Hospital[facility] Hospital ing:LAB Repository 04/14/2018 [id number] [facility] ing[facility] Repository 04/12/2018 [id number] [facility] ing:LAB Repository 03/02/2018/03/02/20 [id number] Ambulatory BMSBuilding:[facility] [place] 18 [place] Repository 01/10/2018/01/11/20 [id number] Ambulatory BMSBuilding:B [place] 18 [facility] Repository 10/12/2017 [id number] [facility] ing:POLAB3 Repository 09/21/2017 [id number] [facility] ing:[facility] Repository 09/21/2017/09/21/19 [id number] Ambulatory BMSBuilding:B [place] 18 [facility] Repository 09/19/2017 [id number] Ambulatory BMSBuilding:[facility] [place] [facility] Repository 09/19/2017/09/19/19 [id number] Ambulatory BMSBuilding:B [place] 18 [facility] Repository PAYERS PAYERS ENCOUNTER GUARANTOR PAYER SUBSCRIBER SOURCE 08/20/2018 CHEN Primary [facility]EN [facility] ANDRIESSENDOB: Insurance:CARESOURCEP ANDRIESSENDOB: [facility] [id number] [facility] Number: [id number] [facility], [id number] [address] [place] [address]Kpk: Date: [place] [address] () 08/06/2018 CHEN A Primary CHEN A Abigail [id number] Insurance:CARESOURCEP ANDRIESSENDOB: [facility] vy GONZALEZ Number: [id number] [address]Dlm: [id number] Repository Date:2018-06-11 O () [address]ATTN: [place] [address]BL: 08/06/2018 Secondary NOT GIVENUNK Abigail Insurance:SELF PAY [facility] Number: Effective Repository Date:2018-07-17 08/02/2018 CHEN Primary [facility]EN [facility] ANDRIESSENDOB: Insurance:CARESOURCEP ANDRIESSENDOB: [facility] [id number] [facility] Number: [id number] Repository NIMCO GONZALEZ, [id number] [address] [place] [address]Wtd: Date: [place] [address] (HP) 07/23/2018 CHEN A Primary CHEN A Abigail [id number] Insurance:CARESOURCEP ANDRIESSENDOB: [facility] danilo RODRIGUESmiguelelsa Number: [id number] Indian Medical Center [address]Igp: [id number] Repository Date:2018-07-23P [address] () [address]ATTN: [place] [address]AI: 07/23/2018 Secondary NOT GIVENUNK Abigail Insurance:SELF PAY [facility] Number: Effective Repository Date:2018-07-23 07/15/2018 CHEN A Primary CHEN A Abigail [id number] Insurance:CARESOURCEP ANDRIESSENDOB: [facility] NIMCO GONZALEZ danilomiguelelsa Number: [id number] [address]Eue: [id number] Repository Date:2018-07-15P [address] () [address]ATTN: [place] [address]EQ: 07/15/2018 Secondary NOT GIVENUNK Abigail Insurance:SELF PAY [facility] Number: Effective Repository Date:2018-07-15 07/12/2018 CHEN A Primary CHEN A Abigail [id number] Insurance:CARESOURCEP ANDRIESSENDOB: [facility] vy RODRIGUES Number: [id number] Hospital [place] [address]Ylj: [id number] Repository Date:2018-07-12 O () [address]ATTN: [place] [address]SI: 07/12/2018 Secondary NOT GIVENUNK Abigail Insurance:SELF PAY [facility] Number: Effective Repository Date:2018-07-12 07/11/2018 CHEN A Primary CHEN A [place] [id number] Insurance:CARESOURCEP ANDRIESSENDOB: [facility] WILSON Number: [id number] Indian Medical Center [address]Idt: [id number] Repository Date:2018-06-11 O () [address]ATTN: [place] [address]FR: 07/11/2018 Secondary NOT GIVENUNK Abigail Insurance:SELF PAY [facility] Number: Effective Repository Date:2018-07-11 06/14/2018 CHEN Primary [facility] ANDRIESSENDOB: Insurance:CARESOURCEP ANDRIESSENDOB: [facility] Number: [id number] [place] [address] [place], [id number] [address] [place] [address]Enw: Date: [place] [address] () 06/11/2018 CHEN A Primary CHEN A Abigail [id number] Insurance:CIGNAPolicy ANDRIESSENDOB: [facility] GONZALEZ, Number: [id number] Indian Medical Center [address]Eir: [id number] Repository Date:4191-12-03[address] () [address], [place] [address]ZJ: 06/11/2018 Secondary CHEN A Abigail Insurance:CARESOURCEP ANDRIESSENDOB: [facility] [place] Number: [id number] [id number] Repository Date:2018-05-14 [address]ATTN: [place] [address]BW: 06/11/2018 Tertiary NOT GIVENUNK Abigail Insurance:SELF PAY [facility] Number: Effective Repository Date:2018-06-11 05/14/2018 CHEN A Primary CHEN A [place] [id number] Insurance:CARESOURCEP ANDRIESSENDOB: Community vy RODRIGUES Number: [id number] [facility] [address]Vus: [id number] Repository Date:2018-05-14P O (HP) [address]ATTN: [place] [address]UQ: 05/14/2018 Secondary NOT GIVENUNK [place] Insurance:SELF PAY [facility] Number: Effective Repository Date:2018-05-14 05/14/2018 CHEN A Primary CHEN A Abigail [id number] Insurance:CARESOURCEP ANDRIESSENDOB: [facility] vy RODRIGUES Number: [id number] Indian Medical Center [address]Xya: [id number] Repository Date:2018-04-13P O (HP) [address]ATTN: [place] [address]YH: 05/14/2018 Secondary NOT GIVENUNK [place] Insurance:SELF PAY [facility] Number: Effective Repository Date:2018-05-14 04/30/2018 CHEN A Primary CHEN A [place] [id number] Insurance:CARESOURCEP ANDRIESSENDOB: [facility] vy RODRIGUES Number: [id number] Indian Medical Center [address]Var: [id number] Repository Date:2018-04-30P O (HP) [address]ATTN: [place] [address]TF: 04/30/2018 Secondary NOT GIVENUNK [place] Insurance:SELF PAY [facility] Number: Effective Repository Date:2018-04-30 04/26/2018 CHEN A Primary NOT GIVENUNK [place] [id number] Insurance:SELF PAY [facility] [address]Ggc: Number: Effective Repository Date:2018-04-26 (HP) 04/18/2018 CHEN A Primary CHEN A [place] [id number] Insurance:CIGNAPolicy ANDRIESSENDOB: [facility] LISA, Number: [id number] Indian Medical Center [address]Zzv: [id number] Repository Date:8885-20-71[address] () [address], [place] [address]GL: 04/18/2018 Secondary CHEN A Abigail Insurance:CARESOURCEP ANDRIESSENDOB: [facility] [place] Number: [id number] [facility] [id number] Repository Date:2018-04-16 [address]ATTN: [place] [address]ZB: 04/18/2018 Tertiary NOT GIVENUNK Abigail Insurance:SELF PAY [facility] Number: Effective Repository Date:2018-04-18 04/16/2018 CHEN A Primary CHEN A [place] [id number] Insurance:CARESOURCEP ANDRIESSENDOB: [facility] vy RODRIGUES Number: [id number] Indian Medical Center [address]Bfh: [id number] Repository Date:2018-04-16P O () [address]ATTN: [place] [address]KW: 04/16/2018 Secondary NOT GIVENUNK [place] Insurance:SELF PAY [facility] Number: Effective Repository Date:2018-04-16 04/14/2018 CHEN A Primary CHEN A Abigail [id number] Insurance:CARESOURCEP ANDRIESSENDOB: [facility] SALAS Number: [id number] Indian Medical Center [address]Hvq: [id number] Repository Date:2018-04-14P O () [address]ATTN: [place] [address]XB: 04/14/2018 Secondary NOT GIVENUNK Abigail Insurance:SELF PAY [facility] Number: Effective Repository Date:2018-04-14 04/12/2018 CHEN A Primary CHEN A Abigail [id number] Insurance:CARESOURCEP ANDRIESSENDOB: [facility] vy RODRIGUES Number: [id number] Indian Medical Center [address]Zby: [id number] Repository Date:2018-04-12P O () [address]ATTN: [place] [address]WY: 04/12/2018 Secondary NOT GIVENUNK Abigail Insurance:SELF PAY [facility] Number: Effective Repository Date:2018-04-12 03/02/2018 CHEN A Primary CHEN A [place] [id number] Insurance:CARESOURCEP ANDRIESSENDOB: [facility] vy RODRIGUES Number: [id number] Indian Medical Center [address]Ttb: [id number] Repository Date:2018-01-10P O () [address]ATTN: [place] [address]LJ: 03/02/2018 Secondary NOT GIVENUNK Abigail Insurance:SELF PAY [facility] Number: Effective Repository Date:2018-03-02 01/10/2018 CHEN Primary CHEN Abigail [id number] Insurance:CIGNAPolicy ANDRIESSENDOB: [facility] NIMCO GONZALEZ, Number: [id number] Indian Medical Center [address]Lbe: [id number] Repository Date:9041-73-95BN [address] () [address]16[address]UT[place], [place] [address]LM: 01/10/2018 Secondary NOT GIVENUNK [place] Insurance:SELF PAY [facility] Number: Effective Repository Date:2018-01-10 10/12/2017 [facility] CHEN Abigail [id number] Insurance:CIGNAPolicy ANDRIESSENDOB: [facility], Number: [id number] Indian Medical Center [address]Doa: [id number] Repository Date:8475-35-18VF [address] () [address]ISIV[place], [place] [address]IT: 10/12/2017 Secondary NOT GIVENUNK [place] Insurance:SELF PAY [facility] Number: Effective Repository Date:2017-10-12 09/21/2017 [facility] CHEN Abigail [id number] Insurance:CIGNAPolicy ANDRIESSENDOB: [facility], Number: [id number] Indian Medical Center [address]Fia: [id number] Repository Date:0661-50-03PC [address] () [address]90[address]XQGZDIJKROU, [place] [address]EX: 09/21/2017 Secondary NOT GIVENUNK Abigail Insurance:SELF PAY [facility] Number: Effective Repository Date:2017-09-21 [facility]/21/2017 [facility] [place] [id number] Insurance:CIGNAPolicy ANDRIESSENDOB: [facility], Number: [id number] Indian Medical Center [address]Mtx: [id number] Repository Date:4491-23-01FD [address] () [address]24[address]PFMKFNSLBPM, [place] [address]XB: 09/21/2017 Secondary NOT GIVENUNK [place] Insurance:SELF PAY [facility] Number: Effective Repository Date:2017-09-21 09/19/2017 [facility] [place] [id number] Insurance:CIGNAPolicy ANDRIESSENDOB: [facility], Number: [id number] Indian Medical Center [address]Dlh: [id number] Repository Date:7739-72-85YI [address] () 4628[address]KCBFQVYUURS, [place] [address]XL: 09/19/2017 Secondary NOT GIVENUNK Abigail Insurance:SELF PAY [facility] Number: Effective Repository Date:2017-09-05 09/19/2017 [facility] [id number] Insurance:CIGNAPolicy ANDRIESSENDOB: [facility] NIMCO GONZALEZ, Number: [id number] Indian Medical Center [address]Odp: [id number] Repository Date:3885-99-75VH [address] () 5689[address]NIVAMRDQVTJ, [place] [address]IR: 09/19/2017 Secondary NOT GIVENUNK Abigail Insurance:SELF PAY [facility] Number: Effective Repository Date:2017-09-05
== END ==
PROVIDERS: Family Provider Internal Medicine; PCP Internal Medicine; Referring Provider Obstetrics & Gynecology; Visit Provider Obstetrics & Gynecology
DX: Z34.90 Encounter for supervision of normal pregnancy, unspecified, unspecified trimester (principal); Z98.891 History of uterine scar from previous surgery
CPT/HCPCS: 36415; 82950; 85025; 86592; 86703; 86762; 86787; 86850; 86900; 87340

== ENCOUNTER → 2018-09-24 11:40 | Outpatient (CLI) | payer MEDICAID, SELFPAY ==
[2018-09-03 14:53] VITALS: BMI 41.2
[2018-09-24 12:34] LABS: Absolute Lymphocyte Count 2.02 X10^3/ul (0.83-4.51); Absolute Neutrophil Count 7.5 X10^3/uL (2.0-7.7); Basophil# 0.01 X10^3/uL; Basophil% 0.1 % (0-1); Eosinophil# 0.16 X10^3/uL; Eosinophils% 1.5 % (0-5); Hematocrit 33.9 % (37-47); Hemoglobin 10.7 g/dl (12.0-15.0); Lymphocyte # 2.02 X10^3/ul (4.0); Lymphocyte % 19.5 % (19-41); Mean Corp Hgb Conc 31.6 g/gl (32-36); Mean Corpuscular Hgb 25.8 pg (27.0-32.0); Mean Corpuscular Volume 81.7 fL (81-99); Monocyte# 0.62 X10^3/uL; Neutrophil # 7.54 X10^3/uL (2.7-7.7); Neutrophil % 72.6 % (47-70); Platelet Count 217 K/mm3 (150-450); RBC Distribution Width CV 14.3 % (11.6-14.6); RBC Distribution Width SD 42.9 fl (35.1-43.9); Red Blood Count 4.15 M/mm3 (4.2-5.4); White Blood Count 10.4 K/mm3 (4.4-11.0)
[2018-09-24 12:37] LABS: POSITIVE COUNT NO; POSITIVE DIFFERENTIAL NO; POSITIVE MORPHOLOGY NO
== END ==
PROVIDERS: Family Provider Internal Medicine; PCP Internal Medicine; Referring Provider Obstetrics & Gynecology; Visit Provider Obstetrics & Gynecology
DX: Z34.90 Encounter for supervision of normal pregnancy, unspecified, unspecified trimester (principal)
CPT/HCPCS: 36415; 85025; 86850; 86900

== ENCOUNTER → 2018-10-01 11:40 | Outpatient (CLI) | payer MEDICAID, SELFPAY ==
[2018-09-03 14:53] VITALS: BMI 41.2
[2018-10-01 13:15] LABS: Glucose Challenge Gest 1H 50g 114 mg/dL (70-140)
== END ==
PROVIDERS: Family Provider Internal Medicine; PCP Internal Medicine; Referring Provider Obstetrics & Gynecology; Visit Provider Obstetrics & Gynecology
DX: Z34.90 Encounter for supervision of normal pregnancy, unspecified, unspecified trimester (principal)
CPT/HCPCS: 36415; 82950

== ENCOUNTER 2018-11-11 15:57 | Outpatient (CLI) | payer MEDICAID, SELFPAY ==
[2018-11-06 14:28] VITALS: BMI 45.6
[2018-11-11 16:25] VITALS: BMI 45.6
[2018-11-11 16:48] LABS: Protein:Creat Ratio 175 mg/g CRE (0-200)
[2018-11-11 16:51] LABS: AST(SGOT) 9 U/L (15-37); Alanine Aminotransfer ALT/SGPT 9 U/L (13-56); Creatinine, Serum 0.56 mg/dL (0.55-1.02); EST Glomerular Filtration Rate 134 mL/min (>60); Est Glom Filt Rate - Afr Amer 162 mL/min (>60); Estimated Creatinine Clearance 125.69 ml/min; Uric Acid 3.9 mg/dL (2.6-6.0)
[2018-11-11 16:54] LABS: Hematocrit 32.8 % (37-47); Hemoglobin 10.4 g/dl (12.0-15.0); Mean Corp Hgb Conc 31.7 g/gl (32-36); Mean Corpuscular Hgb 24.8 pg (27.0-32.0); Mean Corpuscular Volume 78.3 fL (81-99); Mean Platelet Vol. 8.8 fl (6.2-12.0); Platelet Count 178 K/mm3 (150-450); RBC Distribution Width CV 14.6 % (11.6-14.6); RBC Distribution Width SD 41.7 fl (35.1-43.9); Red Blood Count 4.19 M/mm3 (4.2-5.4)
[2018-11-11 16:55] LABS: Prothrombin Time (Protime)PT. 13.3 SECONDS (11.7-14.9)
[2018-11-11 16:56] LABS: Scan Indicated on CBC? Y/N NO
[2018-11-11 17:00] LABS: Partial Thromboplast Time 29.2 Seconds (24.1-36.2)
[2018-11-11] MEDS: Acetaminophen/Butalbital/Caffe 1 Tablet 2 TABLET PO (17:11)
--- NOTE | 2018-11-21 03:35 | OB.TRI.PN ---
Progress Notes Date of Service: 11/11/18 Progress Note: NST secondary to obesity heart tones 150 moderate variability reactive no decelerations category I tracing [place]: regular Continue weekly NSTs for obesity reassuring category 1 tracing reactive NST Laboratory Studies: Laboratory Tests 11/11/18 11/11/18 11/11/18 Range/Units 16:10 16:10 16:10 WBC (4.4-11.0) K/mm3 RBC (4.2-5.4) M/mm3 Hgb (12.0-15.0) g/dl Hct (37-47) % MCV (81-99) fL MCH (27.0-32.0) pg MCHC (32-36) g/gl RDW (11.6-14.6) % RDW Differential (35.1-43.9) fl Plt Count (150-450) K/mm3 MPV (6.2-12.0) fl PT 13.3 (11.7-14.9) SECONDS INR 1.0 APTT 29.2 (24.1-36.2) Seconds Creatinine 0.56 (0.55-1.02) mg/dL Estim Creat Clear Calc 125.69 ml/min Est GFR (MDRD) Af Amer 162 (>60) mL/min Est GFR (MDRD) Non-Af 134 (>60) mL/min Uric Acid 3.9 (2.6-6.0) mg/dL AST 9 L (15-37) U/L ALT 9 L (13-56) U/L U Random Total Protein 27.0 H (<11.9) mg/dL Urine Creatinine 154.00 (NO RANGE EST.) mg/dL Protein/Creatinin Ratio 175 (0-200) mg/g CRE 11/11/18 Range/Units 16:10 WBC 11.0 (4.4-11.0) K/mm3 RBC 4.19 L (4.2-5.4) M/mm3 Hgb 10.4 L (12.0-15.0) g/dl Hct 32.8 L (37-47) % MCV 78.3 L (81-99) fL MCH 24.8 L (27.0-32.0) pg MCHC 31.7 L (32-36) g/gl RDW 14.6 (11.6-14.6) % RDW Differential 41.7 (35.1-43.9) fl Plt Count 178 (150-450) K/mm3 MPV 8.8 (6.2-12.0) fl PT (11.7-14.9) SECONDS INR APTT (24.1-36.2) Seconds Creatinine (0.55-1.02) mg/dL Estim Creat Clear Calc ml/min Est GFR (MDRD) Af Amer (>60) mL/min Est GFR (MDRD) Non-Af (>60) mL/min Uric Acid (2.6-6.0) mg/dL AST (15-37) U/L ALT (13-56) U/L U Random Total Protein (<11.9) mg/dL Urine Creatinine (NO RANGE EST.) mg/dL Protein/Creatinin Ratio (0-200) mg/g CRE
== END 2018-11-11 17:55 | disposition home or self-care (01) ==
LOC: WPOUT 15:58 → WP 16:00
PROVIDERS: Family Provider Internal Medicine; PCP Internal Medicine; Visit Provider Obstetrics & Gynecology
DX: O99.210 Obesity complicating pregnancy, unspecified trimester (principal); Z3A.00 Weeks of gestation of pregnancy not specified; E66.9 Obesity, unspecified
CPT/HCPCS: 59025; 59050; 82565; 82570; 84156; 84450; 84460; 84550; 85027; 85610; 85730; 99218; G0378

== ENCOUNTER 2018-11-19 10:30 | Outpatient (CLI) | payer MEDICAID, SELFPAY ==
[2018-11-12 16:19] VITALS: BMI 45.6
[2018-11-19 10:46] VITALS: BMI 46.5
--- NOTE | 2018-11-21 03:36 | OB.TRI.PN ---
Progress Notes Date of Service: 11/19/18 Progress Note: NST secondary to tachycardia in the office heart tones 160 moderate variability reactive no decelerations category I tracing [place]: no regular Continue weekly NSTs for obesity reassuring category 1 tracing reactive NST
== END 2018-11-19 11:15 | disposition home or self-care (01) ==
LOC: WPOUT 10:38 → WP 10:39
PROVIDERS: Family Provider Internal Medicine; PCP Internal Medicine; Referring Provider Obstetrics & Gynecology; Visit Provider Obstetrics & Gynecology
DX: O99.210 Obesity complicating pregnancy, unspecified trimester (principal); Z3A.00 Weeks of gestation of pregnancy not specified
CPT/HCPCS: 59025; 59050; 99218; G0378

== ENCOUNTER → 2018-11-20 15:19 | Outpatient (CLI) | payer MEDICAID, SELFPAY ==
[2018-11-20 14:37] VITALS: BMI 46.5
[2018-11-20 16:50] LABS: Protein, Urine (Random) 18.8 mg/dL (<11.9); Protein:Creat Ratio 181 mg/g CRE (0-200)
== END ==
PROVIDERS: Family Provider Internal Medicine; PCP Internal Medicine; Referring Provider Obstetrics & Gynecology; Visit Provider Obstetrics & Gynecology
DX: O16.9 Unspecified maternal hypertension, unspecified trimester (principal)
CPT/HCPCS: 82570; 84156; 87081

== ENCOUNTER 2018-11-25 17:10 | Outpatient (CLI) | payer MEDICAID, SELFPAY ==
[2018-11-20 14:37] VITALS: BMI 46.5
[2018-11-25 17:23] VITALS: BMI 45.1
[2018-11-25] MEDS: Dextrose 5%-Lactated Ringers 1,000 ML 999 ML IV ×2 (17:30→18:29)
[2018-11-25] MEDS: Ondansetron 4 MG/2 ML Vial IV (20:02)
--- NOTE | 2018-12-05 09:05 | OB.TRI.NOTE ---
History of Present Illness Was patient seen by the physician?: No Reason For Visit: IV FLUIDS Date of Service: 11/25/18 Final CASTRO: 12/21/18 Final CASTRO Source: US <20 weeks Gestational age: 36 Weeks and 2 Days History of Present Illness: 36+ week intrauterine with nausea vomiting and dehydration. Good movement noted. Occasional mild contraction. Allergies ciprofloxacin [From Cipro] Allergy (Verified 12/03/18 13:59) Hives ciprofloxacin HCl [From Cipro] Allergy (Verified 12/03/18 13:59) Hives buspirone [From BuSpar] Adverse Reaction (Verified 12/03/18 13:59) Other citalopram [From Celexa] Adverse Reaction (Verified 12/03/18 13:59) Other fluoxetine [From Prozac] Adverse Reaction (Verified 12/03/18 13:59) Other - Pertinent Past Medical History Medical History: Past Medical History (Last Reviewed 12/03/18 @ 13:59 by Antonieta Flores) Asthma (Chronic) albuterol PRN- not well controlled, refer to PCP consider Qvar daily Abdominal pain (Resolved) Anxiety (Resolved) Depression (Resolved) Diarrhea (Resolved) Nausea (Resolved) Surgical History: Past Surgical History (Last Reviewed 12/03/18 @ 13:59 by Antonieta Flores) History of (Acute) 03/28/14, 10/31/16 plan RLTCS S/P tonsillectomy (Resolved) 2005 NST - FHR Rate Baby A NST Reactive:: Yes FHR Category:: Category I Impression/Plan 36+ week intrauterine with dehydration. Patient feeling better after IV hydration. Routine follow-up planned.
== END 2018-11-25 20:20 | disposition home or self-care (01) ==
LOC: WPOUT 17:15 → WP 17:17
PROVIDERS: Family Provider Internal Medicine; PCP Internal Medicine; Visit Provider Obstetrics & Gynecology
DX: O99.283 Endocrine, nutritional and metabolic diseases complicating pregnancy, third trimester (principal); O21.2 Late vomiting of pregnancy; E86.0 Dehydration; Z3A.36 36 weeks gestation of pregnancy
CPT/HCPCS: 96361 ×2; 96374; 59025; 59050; 99218; G0378; J2405

== ENCOUNTER 2018-11-26 21:32 | Outpatient (CLI) | payer MEDICAID, SELFPAY ==
[2018-11-25 17:23] VITALS: BMI 45.1
[2018-11-26 21:40] VITALS: BMI 46.0
--- NOTE | 2018-11-27 18:24 | OB.TRI.NOTE ---
History of Present Illness Date of Service: 11/26/18 Was patient seen by the physician?: No Reason For Visit: RULE OUT LABOR Date of Service: 11/26/18 Final CASTRO: 12/23/18 Final CASTRO Source: US <20 weeks Gestational age: 36 Weeks and 2 Days History of Present Illness: 36 3/7 wk presents for labor check. AB1 with h/o two prior C/S deliveries at 39 wks. Allergies ciprofloxacin [From Cipro] Allergy (Verified 11/27/18 14:09) Hives ciprofloxacin HCl [From Cipro] Allergy (Verified 11/27/18 14:09) Hives buspirone [From BuSpar] Adverse Reaction (Verified 11/27/18 14:09) Other citalopram [From Celexa] Adverse Reaction (Verified 11/27/18 14:09) Other fluoxetine [From Prozac] Adverse Reaction (Verified 11/27/18 14:09) Other - Pertinent Past Medical History Medical History: Past Medical History (Last Reviewed 11/27/18 @ 14:09 by Pham Spear) Asthma (Chronic) albuterol PRN- not well controlled, refer to PCP consider Qvar daily Abdominal pain (Resolved) Anxiety (Resolved) Depression (Resolved) Diarrhea (Resolved) Nausea (Resolved) Surgical History: Past Surgical History (Last Reviewed 11/27/18 @ 14:09 by Pham Spear) History of (Acute) 03/28/14, 10/31/16 plan RLTCS S/P tonsillectomy (Resolved) 2005 Physical Exam Cervix Dilation (cm): 1 - no change Station: -3 Effacement (%): 0 NST - FHR Rate Baby A Baseline: 110-120s avg variability. Accels to 170s Variability:: Moderate Accelerations:: 15 x 15 Decelerations:: None NST Reactive:: Yes, Appropriate for gestational age FHR Category:: Category I Uterine Activity:: Uterine irritability with irregular UCs Impression/Plan 36 3/7 wk presents for labor check. False labor. Reactive NST with irregular UCs Home Keep next office appt Return to hospital if inc s/sx of labor.
== END 2018-11-26 22:50 | disposition home or self-care (01) ==
LOC: WPOUT 22:05 → WP 22:07
PROVIDERS: Family Provider Internal Medicine; PCP Internal Medicine; Referring Provider Obstetrics & Gynecology; Visit Provider Obstetrics & Gynecology
DX: O47.03 False labor before 37 completed weeks of gestation, third trimester (principal); Z3A.36 36 weeks gestation of pregnancy; O34.211 Maternal care for low transverse scar from previous cesarean delivery
CPT/HCPCS: 59025; 59050; 99218; G0378

== ENCOUNTER → 2018-11-27 14:38 | Outpatient (CLI) | payer MEDICAID, SELFPAY ==
[2018-11-27 14:13] VITALS: BMI 46.0
[2018-11-27 15:16] LABS: Absolute Lymphocyte Count 1.59 X10^3/ul (0.83-4.51); Absolute Neutrophil Count 5.4 X10^3/uL (2.0-7.7); Basophil# 0.01 X10^3/uL; Basophil% 0.1 % (0-1); Eosinophil# 0.11 X10^3/uL; Eosinophils% 1.4 % (0-5); Hematocrit 33.6 % (37-47); Hemoglobin 10.7 g/dl (12.0-15.0); Lymphocyte # 1.59 X10^3/ul (4.0); Lymphocyte % 20.7 % (19-41); Mean Corp Hgb Conc 31.8 g/gl (32-36); Mean Corpuscular Hgb 24.5 pg (27.0-32.0); Mean Corpuscular Volume 76.9 fL (81-99); Mean Platelet Vol. 8.8 fl (6.2-12.0); Monocyte# 0.53 X10^3/uL; Monocyte% 6.9 % (0-10); Neutrophil # 5.41 X10^3/uL (2.7-7.7); Neutrophil % 70.5 % (47-70); Platelet Count 204 K/mm3 (150-450); RBC Distribution Width CV 14.8 % (11.6-14.6); RBC Distribution Width SD 39.9 fl (35.1-43.9); Red Blood Count 4.37 M/mm3 (4.2-5.4); White Blood Count 7.7 K/mm3 (4.4-11.0)
[2018-11-27 15:16] LABS: Protein, Urine (Random) 61.1 mg/dL (<11.9); Protein:Creat Ratio 210 mg/g CRE (0-200)
[2018-11-27 15:18] LABS: POSITIVE COUNT NO; POSITIVE DIFFERENTIAL NO; POSITIVE MORPHOLOGY NO
[2018-11-27 15:35] LABS: BUN 6 mg/dL (7-18); Glucose 86 mg/dL (74-106)
[2018-11-27 15:36] LABS: ALB/GLOB Ratio 0.7 RATIO (0.9-2.4); AST(SGOT) 11 U/L (15-37); Alanine Aminotransfer ALT/SGPT 9 U/L (13-56); Albumin, Serum 2.6 g/dL (3.2-5.0); Alkaline Phosphatase 119 U/L (45-117); Anion Gap 9 (5-15); BUN/Creat Ratio 9.2 RATIO (10-20); Calcium,Total 8.2 mg/dL (8.5-10.1); Chloride 109 mmol/L (98-107); Creatinine, Serum 0.65 mg/dL (0.55-1.02); EST Glomerular Filtration Rate 113 mL/min (>60); Est Glom Filt Rate - Afr Amer 137 mL/min (>60); Globulin 3.5 g/dL (2.2-4.2); LDH 125 U/L (84-246); Potassium 3.6 mmol/L (3.5-5.1); Protein, Total 6.1 g/dL (6.4-8.2); Sodium Level 138 mmol/L (136-145); Uric Acid 5.1 mg/dL (2.6-6.0)
== END ==
LOC: LABSPEC 14:43 → PAVLAB 14:53
PROVIDERS: Family Provider Internal Medicine; PCP Internal Medicine; Referring Provider Nurse Practitioner Women's Health; Visit Provider Nurse Practitioner Women's Health
DX: O13.9 Gestational [pregnancy-induced] hypertension without significant proteinuria, unspecified trimester (principal)
CPT/HCPCS: 36415; 80053; 82570; 83615; 84156; 84550; 85025

== ENCOUNTER → 2018-12-03 16:42 | Outpatient (CLI) | payer MEDICAID, SELFPAY ==
[2018-12-03 14:29] VITALS: BMI 46.0
[2018-12-03 17:28] LABS: Protein, Urine (Random) 36.3 mg/dL (<11.9); Protein:Creat Ratio 298 mg/g CRE (0-200)
== END ==
PROVIDERS: Family Provider Internal Medicine; PCP Internal Medicine; Referring Provider Obstetrics & Gynecology; Visit Provider Obstetrics & Gynecology
DX: Z34.93 Encounter for supervision of normal pregnancy, unspecified, third trimester (principal); Z3A.37 37 weeks gestation of pregnancy
CPT/HCPCS: 82570; 84156

== ENCOUNTER → 2018-12-05 11:46 | Outpatient (CLI) | payer MEDICAID, SELFPAY ==
[2018-12-03 14:29] VITALS: BMI 46.0
[2018-12-05 12:05] LABS: Absolute Lymphocyte Count 1.91 X10^3/ul (0.83-4.51); Basophil# 0.01 X10^3/uL; Basophil% 0.1 % (0-1); Eosinophil# 0.08 X10^3/uL; Eosinophils% 0.7 % (0-5); Hemoglobin 11.1 g/dl (12.0-15.0); Lymphocyte # 1.91 X10^3/ul (4.0); Lymphocyte % 17.8 % (19-41); Mean Corp Hgb Conc 31.7 g/gl (32-36); Mean Corpuscular Hgb 24.1 pg (27.0-32.0); Mean Corpuscular Volume 76.1 fL (81-99); Mean Platelet Vol. 8.9 fl (6.2-12.0); Monocyte# 0.67 X10^3/uL; Monocyte% 6.2 % (0-10); Neutrophil # 8.04 X10^3/uL (2.7-7.7); Neutrophil % 74.8 % (47-70); Platelet Count 225 K/mm3 (150-450); RBC Distribution Width CV 15.3 % (11.6-14.6); RBC Distribution Width SD 41.2 fl (35.1-43.9); White Blood Count 10.8 K/mm3 (4.4-11.0)
[2018-12-05 12:07] LABS: POSITIVE COUNT NO; POSITIVE DIFFERENTIAL NO; POSITIVE MORPHOLOGY NO
[2018-12-05 12:17] LABS: Protein, Urine (Random) 31.7 mg/dL (<11.9); Protein:Creat Ratio 185 mg/g CRE (0-200)
[2018-12-05 12:28] LABS: ALB/GLOB Ratio 0.7 RATIO (0.9-2.4); AST(SGOT) 9 U/L (15-37); Alanine Aminotransfer ALT/SGPT 15 U/L (13-56); Albumin, Serum 2.8 g/dL (3.2-5.0); Alkaline Phosphatase 128 U/L (45-117); Anion Gap 9 (5-15); BUN 7 mg/dL (7-18); BUN/Creat Ratio 11.2 RATIO (10-20); Calcium,Total 8.4 mg/dL (8.5-10.1); Chloride 107 mmol/L (98-107); Creatinine, Serum 0.62 mg/dL (0.55-1.02); EST Glomerular Filtration Rate 118 mL/min (>60); Est Glom Filt Rate - Afr Amer 143 mL/min (>60); Globulin 3.9 g/dL (2.2-4.2); Glucose 96 mg/dL (74-106); LDH 134 U/L (84-246); Potassium 4.1 mmol/L (3.5-5.1); Protein, Total 6.7 g/dL (6.4-8.2); Sodium Level 137 mmol/L (136-145); Uric Acid 4.2 mg/dL (2.6-6.0)
== END ==
PROVIDERS: Nurse Practitioner Women's Health; Family Provider Internal Medicine; PCP Internal Medicine; Referring Provider Obstetrics & Gynecology; Visit Provider Obstetrics & Gynecology
DX: O26.899 Other specified pregnancy related conditions, unspecified trimester (principal); R51 Headache; Z3A.00 Weeks of gestation of pregnancy not specified
CPT/HCPCS: 36415; 80053; 82570; 83615; 84156; 84550; 85025

== ENCOUNTER 2018-12-14 05:45 | Inpatient (IN) | payer MEDICAID, SELFPAY ==
[2018-10-01 14:32] VITALS: BMI 41.2
[2018-12-11 10:23] VITALS: BMI 46.0
--- NOTE | 2018-12-12 03:08 | PCM.HP.OB ---
- Problem List (1) Segmental and somatic dysfunction of lumbar region Status: Acute (2) Segmental and somatic dysfunction of pelvic region Status: Acute (3) Segmental and somatic dysfunction of sacral region Status: Acute (4) Anemia, antepartum Status: Acute (5) Obesity affecting in third trimester Status: Acute Comment: 1 tm glucola, weekly nsts and growth scans q4w after 32 weeks (6) Acute sinusitis Status: Acute (7) Asthma exacerbation Status: Acute (8) Rh negative state in antepartum period Status: Acute Comment: rhogam at 28 wk, pp and prn (9) Status: Acute Qualifiers: Comment: carrier screening declined. NT not complete due to position and patient declined f/u appt. MFM anatomy US-limited cardiac and spine anatomy due to position. Posterior spine. FU US in 2 weeks to complete anatomy. (10) Supervision of normal Status: Acute Qualifiers: Comment: PRR CASTRO 12/21/18 girl Devora PC Acosta, Nathan Ludwig (11) Abdominal hernia Status: Chronic Qualifiers: Comment: stable (12) Anxiety and depression Status: Chronic Comment: cruzoft (13) Asthma Status: Chronic Qualifiers: Comment: albuterol PRN- not well controlled, refer to PCP consider Qvar daily (14) History of Status: Acute Comment: 03/28/14, 10/31/16 plan RLTCS History Date of Admission: 03/17/14 Final CASTRO: 12/21/18 Final CASTRO Source: US <20 weeks Gestational age: 39 weeks History of this : This is a 33 year-old, at 39 weeks gestational age presents for RLTCS. Medical History: Medical History (Last Reviewed 12/11/18 @ 10:23 by Pham Spear) Asthma (Chronic) J45.909 albuterol PRN- not well controlled, refer to PCP consider Qvar daily Abdominal pain (Resolved) R10.9 Anxiety (Resolved) F41.9 Depression (Resolved) F32.9 Diarrhea (Resolved) R19.7 Nausea (Resolved) R11.0 Surgical History: Surgical History (Last Reviewed 12/11/18 @ 10:23 by Pham Spear) History of (Acute) Z98.891 03/28/14, 10/31/16 plan RLTCS S/P tonsillectomy (Resolved) Z90.89 2005 Allergies ciprofloxacin [From Cipro] Allergy (Verified 12/11/18 10:23) Hives ciprofloxacin HCl [From Cipro] Allergy (Verified 12/11/18 10:23) Hives buspirone [From BuSpar] Adverse Reaction (Verified 12/11/18 10:23) Other citalopram [From Celexa] Adverse Reaction (Verified 12/11/18 10:23) Other fluoxetine [From Prozac] Adverse Reaction (Verified 12/11/18 10:23) Other Home Medications: Home Medications Loratadine [Claritin] 10 mg PO DAILY 07/12/16 albuterol sulfate 0.63 mg/3 mL solution for nebulization 0.63 mg INHALATION Q8H PRN #90 ml 05/09/18 Albuterol Inhaler [Ventolin Hfa] 1 - 2 puff INHALATION Q4H PRN PRN #1 inhaler 07/23/18 Ranitidine HCl 150 mg PO BID 11/11/18 Sertraline HCl [Zoloft] 200 mg PO QDAY 11/11/18 Vits [Prenatabs FA] 1 tab PO DAILY 11/25/18 Smoking Status: Former smoker Heart Tracin History Past Pregnancies: Past Pregnancies 2 previous term cs macrosomia Labs: Social History Alleged father mattie Germain Smoking Yes Smoking Status Former smoker Expected Infant Delivery Method: Scheduled Section Review of Systems Constitutional: Denies: Fever, Malaise Eyes: Denies: Blurred vision, Vision Change HEENT: Denies: Head Aches, Visual Changes Cardiovascular: Denies: Chest Pain, Palpitations Respiratory: Denies: Cough, Shortness of Breath, Wheezing Gastrointestinal: Denies: Abdominal Pain, Diarrhea, Nausea, Vomiting Genitourinary: Denies: Dysuria, Hematuria Musculoskeletal: Denies: Joint Pain, Muscle pain Skin: Denies: Lesions, Rash Neurological: Denies: Blurred vision, Focal weakness, Headaches Psychiatric: Denies: Anxiety, Depression Endocrine: Denies: Heat/ Cold Intolerance Hematologic/ Lymphatic: Denies: Easy Bruising, Easy Bleeding Physical Exam General: Alert, Cooperative, No apparent distress HEENT: Atraumatic, Normocephalic. Negative for: Thyromegaly, Lymphadenopathy Cardiovascular: Regular rate Lungs: Normal air movement Abdomen: Soft, Non Tender, Gravid, Hernia Neurological: Deep Tendon Reflexes 2+/4 and Symmetrical, Neuro grossly intact. Negative for: Clonus TIP PUNCHER: Normal external genitalia. Negative for: Vulvar lesions Estimated gestational size: Appropriate for gestational size Presentation: Cephalic Assessment/Plan All Active Problems (Last Reviewed 12/11/18 @ 10:23 by Pham Spear) Segmental and somatic dysfunction of lumbar region (Acute) Segmental and somatic dysfunction of pelvic region (Acute) Segmental and somatic dysfunction of sacral region (Acute) Anemia, antepartum (Acute) Obesity affecting in third trimester (Acute) Acute sinusitis (Acute) Asthma exacerbation (Acute) Rh negative state in antepartum period (Acute) (Acute) Supervision of normal (Acute) History of (Acute) Abdominal pain (Resolved) Anxiety (Resolved) Depression (Resolved) Diarrhea (Resolved) Nausea (Resolved) Pharyngitis (Resolved) S/P tonsillectomy (Resolved) URI (upper respiratory infection) (Resolved) This is a 33 year-old, , at 39 weeks gestational age presents for RLTCS and possible umbilical hernia repair proceed with RLTCS
[2018-12-14] VITALS (21 sets, daily range): BP systolic 92–148; BP diastolic 45–84; PULSE 78–120; RESP 16–18; TEMP 36.1–36.6; O2SAT 95–100; BMI 46.0
[2018-12-14] MEDS: Lactated Ringers 1,000 ML 999 ML IV (06:10)
[2018-12-14 06:24] LABS: Absolute Lymphocyte Count 2.17 X10^3/ul (0.83-4.51); Absolute Neutrophil Count 6.6 X10^3/uL (2.0-7.7); Basophil# 0.01 X10^3/uL; Basophil% 0.1 % (0-1); Eosinophils% 1.1 % (0-5); Hematocrit 33.5 % (37-47); Hemoglobin 10.9 g/dl (12.0-15.0); Lymphocyte # 2.17 X10^3/ul (4.0); Lymphocyte % 22.8 % (19-41); Mean Corp Hgb Conc 32.5 g/gl (32-36); Mean Corpuscular Hgb 24.9 pg (27.0-32.0); Mean Corpuscular Volume 76.7 fL (81-99); Mean Platelet Vol. 9.9 fl (6.2-12.0); Monocyte# 0.62 X10^3/uL; Monocyte% 6.5 % (0-10); Neutrophil # 6.56 X10^3/uL (2.7-7.7); Platelet Count 159 K/mm3 (150-450); RBC Distribution Width CV 15.7 % (11.6-14.6); RBC Distribution Width SD 43.4 fl (35.1-43.9); Red Blood Count 4.37 M/mm3 (4.2-5.4); White Blood Count 9.5 K/mm3 (4.4-11.0)
[2018-12-14 06:30] LABS: POSITIVE COUNT NO; POSITIVE DIFFERENTIAL NO; POSITIVE MORPHOLOGY NO
[2018-12-14] MEDS: Cefazolin 2 GM in 0.9% Normal Saline 100 ML IV (07:02)
[2018-12-14] MEDS: Sodium Citrate/Citric Acid 30 ML UDC PO (07:02)
[2018-12-14] MEDS: Lactated Ringers 1,000 ML 150 ML IV (07:02)
[2018-12-14] MEDS: Lactated Ringers 1,000 ML 100 ML IV ×2 (08:00→11:40)
[2018-12-14] MEDS: Oxytocin 30 units/NS 500 ml 30 UNITS/500 ML IV.SOLN 167 UNITS IV (08:10)
[2018-12-14] MEDS: DiphenhydrAMINE 25 MG Capsule PO (13:30)
[2018-12-14] MEDS: 0.9% Saline Lock 10 ML Syringe IV (16:56)
[2018-12-14] MEDS: Ketorolac 30 MG/ML Syringe IV (16:56)
--- NOTE | 2018-12-14 22:05 | OP.PCM_ITS ---
Problem List (1) Segmental and somatic dysfunction of lumbar region Status: Acute (2) Segmental and somatic dysfunction of pelvic region Status: Acute (3) Segmental and somatic dysfunction of sacral region Status: Acute (4) Anemia, antepartum Status: Acute (5) Obesity affecting in third trimester Status: Acute Comment: 1 tm glucola, weekly nsts and growth scans q4w after 32 weeks (6) Acute sinusitis Status: Acute (7) Asthma exacerbation Status: Acute (8) Rh negative state in antepartum period Status: Acute Comment: rhogam at 28 wk, pp and prn (9) Status: Acute Qualifiers: Comment: carrier screening declined. NT not complete due to position and patient declined f/u appt. MFM anatomy US-limited cardiac and spine anatomy due to position. Posterior spine. FU US in 2 weeks to complete anatomy. (10) Supervision of normal Status: Acute Qualifiers: Comment: PRR CASTRO 12/21/18 girl Devora PC Acosta, Nathan Ludwig (11) Abdominal hernia Status: Chronic Qualifiers: Comment: stable (12) Anxiety and depression Status: Chronic Comment: zoloft (13) Asthma Status: Chronic Qualifiers: Comment: albuterol PRN- not well controlled, refer to PCP consider Qvar daily (14) History of Status: Acute Comment: 03/28/14, 10/31/16 plan [facility] Delivery Classification: Scheduled Final CASTRO: 12/21/18 Gestational age: 39 Weeks and 1 Days Indications for : Repeat Elective Description of Procedure: The patient is a 33-year-old G3, P2 presented for repeat . Spinal anesthesia was placed without difficulty. Morelos catheter was placed. The patient was placed in the dorsal supine position with leftward tilt. Patient was prepped and draped in the normal sterile fashion. Pfannenstiel skin incision was made with the scalpel and carried through to the underlying layer of fascia with the scalpel. Fascia was nicked in the midline and the incision extended laterally. The rectus bellies were dissected off superiorly and inferiorly with out complication both sharply and bluntly. The peritoneum was entered digitally. a 2 cm uterine dehiscence was noted with a think layer of peritoneum over it. The peritoneal incision was stretched and a low transverse uterine incision was made with the scalpel. The 's head was delivered atraumatically followed by the anterior and posterior shoulders without compli cation the rest of the delivered. The cord was clamped and cut and the was handed off to awaiting nurse. The placenta was delivered spontaneously immediately following and was noted to be intact and have a three- vessel cord. The uterus was exteriorized cleared of all clots and debris, and the incision was closed in a double layer closure using #1 Monocryl. The uterus was returned to the maternal abdomen and gutters were cleared of all clots and debris. The ovaries and fallopian tubes were noted to be within normal limits. The peritoneum was closed with 3-0 Monocryl in a running fashion. Fascia was closed with 0 PDS in a running fashion. Subcutaneous tissue was copiously irrigated and the skin was closed with 3-0 Monocryl in a subcuticular fashion. Steri-Strips and Mepilex dressing were applied without complication. Patient was taken to recovery in stable condition. Amniotic Membrane Rupture Type: Spontaneous Amniotic Fluid Description: Clear Placenta Disposition: [facility] Cord Entanglement: None Esitmated Blood Loss (ml): 700 Gender: Female Delayed cord clamping: Yes Pre-op Antibiotic Given: Ancef 2 grams IV x1 Complications: None - Admit VTE Documentation VTE Present on Admission: No VTE Mechan Device Prophylaxis: SCD's
[2018-12-14] MEDS: Acetaminophen 500 MG Tablet 1000 MG PO (22:32)
[2018-12-15] VITALS (8 sets, daily range): BP systolic 114–138; BP diastolic 57–83; PULSE 83–105; RESP 16–20; TEMP 36.3–37; O2SAT 97–100
[2018-12-15] MEDS: Ketorolac 30 MG/ML Syringe IV ×4 (00:33→18:58)
[2018-12-15 04:42] LABS: Hematocrit 30.4 % (37-47); Hemoglobin 9.5 g/dl (12.0-15.0); Mean Corp Hgb Conc 31.3 g/gl (32-36); Mean Corpuscular Hgb 24.2 pg (27.0-32.0); Mean Corpuscular Volume 77.6 fL (81-99); Mean Platelet Vol. 8.7 fl (6.2-12.0); Platelet Count 138 K/mm3 (150-450); RBC Distribution Width CV 15.7 % (11.6-14.6); RBC Distribution Width SD 42.8 fl (35.1-43.9); Red Blood Count 3.92 M/mm3 (4.2-5.4); Scan Indicated on CBC? Y/N NO; White Blood Count 7.5 K/mm3 (4.4-11.0)
--- NOTE | 2018-12-15 09:22 | PCM.PN.OB ---
Subjective: doing well no complaints pain controlled no CP SOB N V ambulating well tolerating po lochia moderate, going well - Physical Exam General: Alert, Oriented x3 Vital Signs Temp Pulse Resp BP Pulse Ox 97.4 F L 83 18 123/63 H 99 12/15/18 04:15 12/15/18 06:15 12/15/18 06:15 12/15/18 04:15 12/15/18 06:15 Oxygen Delivery Method Room Air Weight: 268 lb 9.6 oz Body Mass Index (BMI) 46.0 Intake and Output for Last 24 Hours 12/13/18 12/14/18 12/15/18 23:59 23:59 23:59 Intake Total 4000 / 4000 800 / 800 Output Total 1000 / 1000 1400 / 1400 Balance 3000 / 3000 -600 / -600 Laboratory Tests Past 24 Hrs 12/15/18 04:22 WBC 7.5 RBC 3.92 L Hgb 9.5 L Hct 30.4 L MCV 77.6 L MCH 24.2 L MCHC 31.3 L RDW 15.7 H RDW Differential 42.8 Plt Count 138 L MPV 8.7 Medical Necessity - Tobacco Use Smoking Status: Former smoker Assessment/Plan All Active Problems (Last Reviewed 12/11/18 @ 10:23 by Pham Spear) Segmental and somatic dysfunction of lumbar region (Acute) Segmental and somatic dysfunction of pelvic region (Acute) Segmental and somatic dysfunction of sacral region (Acute) Anemia, antepartum (Acute) Obesity affecting in third trimester (Acute) Acute sinusitis (Acute) Asthma exacerbation (Acute) Rh negative state in antepartum period (Acute) (Acute) Supervision of normal (Acute) History of (Acute) Abdominal pain (Resolved) Anxiety (Resolved) Depression (Resolved) Diarrhea (Resolved) Nausea (Resolved) Pharyngitis (Resolved) S/P tonsillectomy (Resolved) URI (upper respiratory infection) (Resolved) s/p LTCS PPD # 1 1. routine post care 2. breast feeding- support given 3. rh negative 4. rubella immune
[2018-12-15] MEDS: oxyCODONE 5 MG Tablet PO ×3 (09:42→20:03)
[2018-12-15] MEDS: Senna/Docusate Sodium 1 Tablet PO (09:42)
[2018-12-15] MEDS: 0.9% Saline Lock 10 ML Syringe IV ×2 (13:14→18:59)
[2018-12-15] MEDS: Acetaminophen 500 MG Tablet 1000 MG PO (20:02)
--- NOTE | 2018-12-15 20:05 | NURSING ---
2004 Medicated for frontal headache 01/07. Positioned supine, headache /. Pt thinks LONGO may be due to lack of sleep. Medicated.
[2018-12-16] MEDS: Ketorolac 30 MG/ML Syringe IV ×2 (00:29→06:22)
[2018-12-16] MEDS: 0.9% Saline Lock 10 ML Syringe IV ×2 (00:29→06:22)
[2018-12-16 02:00] VITALS: BP 115/63; PULSE 86; RESP 16; TEMP 36.9
--- NOTE | 2018-12-16 06:28 | PCM.PN.OB ---
Subjective: doing well no complaints pain controlled no CP SOB N V ambulating well tolerating po lochia moderate, going well - Physical Exam General: Alert, Oriented x3 Vital Signs Temp Pulse Resp BP Pulse Ox 98.4 F 86 16 115/63 99 12/16/18 02:00 12/16/18 02:00 12/16/18 02:00 12/16/18 02:00 12/15/18 16:00 Oxygen Delivery Method Room Air Weight: 268 lb 9.6 oz Body Mass Index (BMI) 46.0 Intake and Output for Last 24 Hours 12/14/18 12/15/18 12/16/18 23:59 23:59 23:59 Intake Total 4000 / 4000 800 / 800 Output Total 1000 / 1000 1700 / 1700 Balance 3000 / 3000 -900 / -900 Laboratory Tests Past 24 Hrs 12/15/18 11:00 Screen NEGATIVE Baby's Blood Type O POSITIVE Baby's WALTER NEGATIVE Medical Necessity - Tobacco Use Smoking Status: Former smoker Assessment/Plan All Active Problems (Last Reviewed 12/11/18 @ 10:23 by Pham Spear) Segmental and somatic dysfunction of lumbar region (Acute) Segmental and somatic dysfunction of pelvic region (Acute) Segmental and somatic dysfunction of sacral region (Acute) Anemia, antepartum (Acute) Obesity affecting in third trimester (Acute) Acute sinusitis (Acute) Asthma exacerbation (Acute) Rh negative state in antepartum period (Acute) (Acute) Supervision of normal (Acute) History of (Acute) Abdominal pain (Resolved) Anxiety (Resolved) Depression (Resolved) Diarrhea (Resolved) Nausea (Resolved) Pharyngitis (Resolved) S/P tonsillectomy (Resolved) URI (upper respiratory infection) (Resolved) s/p LTCS PPD # 2 1. routine post care 2. breast feeding- support given 3. rh negative 4. rubella immune
[2018-12-16 08:15] VITALS: BP 116/63; PULSE 92; RESP 18; TEMP 36.6; O2SAT 96
[2018-12-16] MEDS: oxyCODONE 5 MG Tablet PO ×4 (08:31→22:19)
[2018-12-16] MEDS: Acetaminophen 500 MG Tablet 1000 MG PO (08:32)
[2018-12-16] MEDS: Senna/Docusate Sodium 1 Tablet PO (09:25)
[2018-12-16 14:00] VITALS: BP 126/67; PULSE 102; RESP 18; TEMP 36.2
[2018-12-16] MEDS: Naproxen 250 MG Tablet PO (20:16)
[2018-12-16 20:25] VITALS: BP 140/84; PULSE 72; RESP 18; TEMP 37.2
[2018-12-17 01:59] VITALS: BP 122/64; PULSE 94; RESP 16; TEMP 36.5; O2SAT 98
--- NOTE | 2018-12-17 02:06 | NURSING ---
flat red blotchy areas noted to pannus above mepilex dressing. skin intact. no drainage. pt reports slight itching to area and reports has been wearing abd binder. abd binder removed, will continue to monitor
[2018-12-17] MEDS: oxyCODONE 5 MG Tablet PO ×2 (04:52→13:41)
[2018-12-17] MEDS: Naproxen 250 MG Tablet PO (05:26)
--- NOTE | 2018-12-17 05:35 | NURSING ---
Flat, red area on abdomen is unchanged from previous assessment. Will continue to monitor
[2018-12-17 07:50] VITALS: BP 127/83; PULSE 90; RESP 18; TEMP 36.3; O2SAT 96
[2018-12-17] MEDS: Senna/Docusate Sodium 1 Tablet PO (07:58)
[2018-12-17] MEDS: Hydrocortisone 2.5% Crm 1 APPLIC TOPICAL (08:01)
--- NOTE | 2018-12-17 09:59 | PCM.DCCSEC ---
Discharge Diet: No Restrictions Discharge Activity: May Not Drive - for 2 weeks, May not drive while taking narcotic pain medications., May Shower, May Take a Tub Bath - in 7 days May resume sexual activity in: 4-6 weeks Lifting Restrictions: 20 pounds Additional Activity Instructions:: Nothing in the vagina for 4-6 weeks. You may return to work/school in 6 weeks. Call your doctor if your incision/area has: Continuous Slow Oozing, Sudden Increased Bleeding, Increased Pain/ Swelling, Increased Redness, Foul Smelling Discharge Call your doctor if you observe: Fever of 101 or Higher, Using more than one pad per hour - for 2 hours Suture Line Care: Avoid Pulling/Pushing, Avoid Pinching/Bending Cleanse incision/area with: Keep Dressing Clean & Dry Additional Instructions: If you experience any of the following, contact your healthcare provider. Bleeding that soaks a pad every hour for 2 hours Fever 100.4 or higher Unrelieved incision or abdominal pain Swelling, redness, discharge or bleeding from your incision or episiotomy site Your incision begins to separate Problems urinating (including inability to urinate or burning while urinating). Visual changes Severe headache Flu-like symptoms Pain or redness in one of both of your breasts Pain, warmth, tenderness or swelling in your legs, especially the calf area Frequent nausea and vomiting Symptoms of depression or anxiety If you experience any of the following, call 911 or go to the nearest Emergency Room. Chest pain Problems breathing Seizure activity Partial or complete paralysis of a body part, slurred speech, weakness or drooping of the face, or a sudden inability to walk or hold your balance Allergies/Adverse Reactions: Allergies ciprofloxacin [From Cipro] Allergy (Verified 12/11/18 10:23) Hives ciprofloxacin HCl [From Cipro] Allergy (Verified 12/11/18 10:23) Hives buspirone [From BuSpar] Adverse Reaction (Verified 12/14/18 05:55) Other irritability citalopram [From Celexa] Adverse Reaction (Verified 12/14/18 05:55) Other irritability fluoxetine [From Prozac] Adverse Reaction (Verified 12/14/18 05:55) Other irritability Medications to take at Discharge Loratadine [Claritin] 10 mg PO DAILY 07/12/16 albuterol sulfate 0.63 mg/3 mL solution for nebulization 0.63 mg INHALATION Q8H PRN #90 ml 05/09/18 Albuterol Inhaler [Ventolin Hfa] 1 - 2 puff INHALATION Q4H PRN PRN #1 inhaler 07/23/18 Ranitidine HCl 150 mg PO BID 11/11/18 Sertraline HCl [Zoloft] 200 mg PO QDAY 11/11/18 Vits [Prenatabs FA] 1 tab PO DAILY 11/25/18 Naproxen [Naprosyn] 250 - 500 mg PO Q8H PRN PRN #30 tablet 12/14/18 Oxycodone HCl/Acetaminophen [Percocet 5-325] 1 - 2 tablet PO Q4H PRN PRN 7 Days #28 tablet 12/14/18 The following prescriptions were given: Oxycodone HCl/Acetaminophen [Percocet 5-325] 1 - 2 tablet PO Q4H PRN PRN 7 Days #28 tablet PRN Reason: Moderate-Severe pain Naproxen [Naprosyn] 250 - 500 mg PO Q8H PRN PRN #30 tablet PRN Reason: MILD PAIN Follow-Up: Call to make an appointment with your doctor for an incision check in 1-2 weeks. You will also need a 6 week post- follow up appointment. Test results from this visit will be discussed in further detail at your follow-up appointment, if applicable. Please Follow Up With: Ramona Peterson MD - Call to make an appointment for an incision check in 1-2 [phone] When: You will need a post- check in 6 weeks. Primary Care Physician: Rekha Payne MD [Primary Care Provider] -
--- NOTE | 2018-12-17 10:02 | DCINST_ITS ---
Discharge Diet: No Restrictions Discharge Activity: May Not Drive - for 2 weeks, May not drive while taking narcotic pain medications., May Shower, May Take a Tub Bath - in 7 days May resume sexual activity in: 4-6 weeks Lifting Restrictions: 20 pounds Additional Activity Instructions:: Nothing in the vagina for 4-6 weeks. You may return to work/school in 6 weeks. Call your doctor if your incision/area has: Continuous Slow Oozing, Sudden Increased Bleeding, Increased Pain/ Swelling, Increased Redness, Foul Smelling Discharge Call your doctor if you observe: Fever of 101 or Higher, Using more than one pad per hour - for 2 hours Suture Line Care: Avoid Pulling/Pushing, Avoid Pinching/Bending Cleanse incision/area with: Keep Dressing Clean & Dry Additional Instructions: If you experience any of the following, contact your healthcare provider. * Bleeding that soaks a pad every hour for 2 hours * Fever 100.4 or higher * Unrelieved incision or abdominal pain * Swelling, redness, discharge or bleeding from your incision or episiotomy site * Your incision begins to separate * Problems urinating (including inability to urinate or burning while urinating). * Visual changes * Severe headache * Flu-like symptoms * Pain or redness in one of both of your breasts * Pain, warmth, tenderness or swelling in your legs, especially the calf area * Frequent nausea and vomiting * Symptoms of depression or anxiety If you experience any of the following, call 911 or go to the nearest Emergency Room. * Chest pain * Problems breathing * Seizure activity * Partial or complete paralysis of a body part, slurred speech, weakness or drooping of the face, or a sudden inability to walk or hold your balance Allergies/Adverse Reactions: Allergies ciprofloxacin [From Cipro] Allergy (Verified 12/11/18 10:23) Hives ciprofloxacin HCl [From Cipro] Allergy (Verified 12/11/18 10:23) Hives buspirone [From BuSpar] Adverse Reaction (Verified 12/14/18 05:55) Other irritability citalopram [From Celexa] Adverse Reaction (Verified 12/14/18 05:55) Other irritability fluoxetine [From Prozac] Adverse Reaction (Verified 12/14/18 05:55) Other irritability Medications to take at Discharge Loratadine [Claritin] 10 mg PO DAILY 07/12/16 albuterol sulfate 0.63 mg/3 mL solution for nebulization 0.63 mg INHALATION Q8H PRN #90 ml 05/09/18 Albuterol Inhaler [Ventolin Hfa] 1 - 2 puff INHALATION Q4H PRN PRN #1 inhaler 07/23/18 Ranitidine HCl 150 mg PO BID 11/11/18 Sertraline HCl [Zoloft] 200 mg PO QDAY 11/11/18 Vits [Prenatabs FA] 1 tab PO DAILY 11/25/18 Naproxen [Naprosyn] 250 - 500 mg PO Q8H PRN PRN #30 tablet 12/14/18 Oxycodone HCl/Acetaminophen [Percocet 5-325] 1 - 2 tablet PO Q4H PRN PRN 7 Days #28 tablet 12/14/18 The following prescriptions were given: Oxycodone HCl/Acetaminophen [Percocet 5-325] 1 - 2 tablet PO Q4H PRN PRN 7 Days #28 tablet PRN Reason: Moderate-Severe pain Naproxen [Naprosyn] 250 - 500 mg PO Q8H PRN PRN #30 tablet PRN Reason: MILD PAIN Follow-Up: Call to make an appointment with your doctor for an incision check in 1-2 weeks. You will also need a 6 week post- follow up appointment. Test results from this visit will be discussed in further detail at your follow- up appointment, if applicable. Please Follow Up With: Ramona Peterson MD - Call to make an appointment for an incision check in 1-2 [phone] When: You will need a post- check in 6 weeks. Primary Care Physician: Rekha Payne MD [Primary Care Provider] -
--- NOTE | 2018-12-17 10:17 | PCM.DC.SUM ---
Discharge Date and Diagnosis Date of Admission: 03/17/14 Date of Discharge: 12/17/18 - Secondary Discharge Diagnosis Chronic Problems (Last Reviewed 12/11/18 @ 10:23 by Pham Spear) Abdominal hernia (Chronic) stable Anxiety and depression (Chronic) zoloft Asthma (Chronic) albuterol PRN- not well controlled, refer to PCP consider Qvar daily Hospital Course and Treatment Operations: - - RLTCS Summary of Care Provided: The patient is a 33 year old F patient underwent a section and had a routine recovery with a return of bowel and bladder function, was ambulating, voiding, and tolerating po, and was stable for discharge to home on POD 3. - Physical Exam Vital Signs Temp Pulse Resp BP Pulse Ox 97.4 F L 90 18 127/83 H 96 12/17/18 07:50 12/17/18 07:50 12/17/18 07:50 12/17/18 07:50 12/17/18 07:50 Oxygen Delivery Method Room Air Weight: 268 lb 9.6 oz Body Mass Index (BMI) 46.0 Intake and Output for Last 24 Hours 12/15/18 12/16/18 12/17/18 23:59 23:59 23:59 Intake Total 800 / 800 Output Total 1700 / 1700 Balance -900 / -900 Discharge Diet: No Restrictions Discharge Activity: May Not Drive - for 2 weeks, May not drive while taking narcotic pain medications., May Shower, May Take a Tub Bath - in 7 days May resume sexual activity in: 4-6 weeks Additional Activity Instructions:: Nothing in the vagina for 4-6 weeks. You may return to work/school in 6 weeks. Call your doctor if your incision/area has: Continuous Slow Oozing, Sudden Increased Bleeding, Increased Pain/ Swelling, Increased Redness, Foul Smelling Discharge Call your doctor if you observe: Fever of 101 or Higher, Using more than one pad per hour - for 2 hours Suture Line Care: Avoid Pulling/Pushing, Avoid Pinching/Bending Cleanse incision/area with: Keep Dressing Clean & Dry Home Medications: Medications to take at Discharge Loratadine [Claritin] 10 mg PO DAILY 07/12/16 albuterol sulfate 0.63 mg/3 mL solution for nebulization 0.63 mg INHALATION Q8H PRN #90 ml 05/09/18 Albuterol Inhaler [Ventolin Hfa] 1 - 2 puff INHALATION Q4H PRN PRN #1 inhaler 07/23/18 Ranitidine HCl 150 mg PO BID 11/11/18 Sertraline HCl [Zoloft] 200 mg PO QDAY 11/11/18 Vits [Prenatabs FA] 1 tab PO DAILY 11/25/18 Naproxen [Naprosyn] 250 - 500 mg PO Q8H PRN PRN #30 tablet 12/14/18 Oxycodone HCl/Acetaminophen [Percocet 5-325] 1 - 2 tablet PO Q4H PRN PRN 7 Days #28 tablet 12/14/18 Following Prescrptions Were Given to Patient: Oxycodone HCl/Acetaminophen [Percocet 5-325] 1 - 2 tablet PO Q4H PRN PRN 7 Days #28 tablet PRN Reason: Moderate-Severe pain Naproxen [Naprosyn] 250 - 500 mg PO Q8H PRN PRN #30 tablet PRN Reason: MILD PAIN Primary Care Physician: Rekha Payne MD [Primary Care Provider] - Please Follow Up With: Raomna Peterson MD - Call to make an appointment for an incision check in 1-2 [phone] When: You will need a post- check in 6 weeks. Medical Necessity - Tobacco Use Smoking Status: Former smoker Meaningful Use Info Meaningful Use Diagnoses (Choose all that apply): None applicable
[2018-12-17 13:51] VITALS: BP 115/60; PULSE 97; RESP 16; TEMP 36.2; O2SAT 98
--- NOTE | 2018-12-22 13:53 | NURSING ---
no answer on follow up phone call. Left voicemail.
== END 2018-12-17 16:45 | disposition home or self-care (01) | DRG 540 ==
PROVIDERS: Admitting Provider Obstetrics & Gynecology; Family Provider Internal Medicine; PCP Internal Medicine; Referring Provider Obstetrics & Gynecology; Visit Provider Obstetrics & Gynecology
PROC: 10D00Z1 Extraction of Products of Conception, Low, Open Approach (ICD-10-PCS; CPT 59514; principal; 2018-12-14 07:15)
DX: O34.211 Maternal care for low transverse scar from previous cesarean delivery (principal); O99.214 Obesity complicating childbirth; E66.9 Obesity, unspecified; Z87.891 Personal history of nicotine dependence; M99.03 Segmental and somatic dysfunction of lumbar region; M99.05 Segmental and somatic dysfunction of pelvic region; M99.04 Segmental and somatic dysfunction of sacral region; O99.62 Diseases of the digestive system complicating childbirth; K46.9 Unspecified abdominal hernia without obstruction or gangrene; O99.344 Other mental disorders complicating childbirth; F41.9 Anxiety disorder, unspecified; F32.9 Major depressive disorder, single episode, unspecified; J45.909 Unspecified asthma, uncomplicated; Z37.0 Single live birth; Z67.91 Unspecified blood type, Rh negative; Z3A.39 39 weeks gestation of pregnancy
CPT/HCPCS: 85025; 85027; 85461; 86850; 86900; 90384; 99218; J7120; A4216; G0378; J2405; J2790

== ENCOUNTER → 2019-03-04 09:37 | Outpatient (CLI) | payer MEDICAID, SELFPAY ==
[2019-02-12 09:25] VITALS: BMI 43.0
[2019-03-04 10:32] LABS: hCG Titer Quant., Serum < 1 mIU/mL (1-3)
== END ==
PROVIDERS: Family Provider Internal Medicine; PCP Internal Medicine; Referring Provider Obstetrics & Gynecology; Visit Provider Obstetrics & Gynecology
DX: O20.0 Threatened abortion (principal); Z3A.00 Weeks of gestation of pregnancy not specified
CPT/HCPCS: 84702

== ENCOUNTER → 2019-04-26 11:42 | Outpatient (CLI) | payer MEDICAID, SELFPAY ==
[2019-04-25 17:38] VITALS: BMI 43.0
[2019-04-26 12:20] LABS: Absolute Lymphocyte Count 2.02 X10^3/uL (0.83-4.51); Absolute Neutrophil Count 5.2 X10^3/uL (2.0-7.7); Basophil# 0.04 X10^3/uL; Basophil% 0.5 % (0-1); Eosinophil# 0.25 X10^3/uL; Eosinophils% 3.1 % (0-5); Hematocrit 39.5 % (37-47); Hemoglobin 11.9 g/dL (12.0-15.0); Lymphocyte # 2.02 X10^3/ul (4.0); Lymphocyte % 25.4 % (19-41); Mean Corp Hgb Conc 30.1 g/dL (32-36); Mean Corpuscular Hgb 23.2 pg (27.0-32.0); Mean Corpuscular Volume 76.8 fL (81-99); Mean Platelet Vol. 9.1 fl (6.2-12.0); Monocyte# 0.39 X10^3/uL; Monocyte% 4.9 % (0-10); NRBC Flagged by Analyzer 0 % (0-5); Neutrophil # 5.23 X10^3/uL (2.7-7.7); Neutrophil % 65.8 % (47-70); Platelet Count 257 K/mm3 (150-450); RBC Distribution Width CV 15.8 % (11.6-14.6); RBC Distribution Width SD 43.9 fl (35.1-43.9); Red Blood Count 5.14 M/mm3 (4.2-5.4)
[2019-04-26 13:10] LABS: T4 Free Direct 0.99 ng/dL (0.76-1.46); Thyroid Stim Hormone (TSH) 0.81 uIU/mL (0.358-3.74)
== END ==
PROVIDERS: Family Provider Internal Medicine; PCP Internal Medicine; Referring Provider Internal Medicine; Visit Provider Internal Medicine
DX: F41.9 Anxiety disorder, unspecified (principal); F32.9 Major depressive disorder, single episode, unspecified
CPT/HCPCS: 36415; 84439; 84443; 85025

== ENCOUNTER → 2020-02-07 17:51 | Outpatient (CLI) | payer MEDICAID, SELFPAY ==
[2019-09-27 14:35] VITALS: BMI 43.0
== END ==
PROVIDERS: PCP Internal Medicine; Referring Provider Physician Assistant Surgical; Visit Provider Physician Assistant Surgical
DX: Z20.828 Contact with and (suspected) exposure to other viral communicable diseases (principal)
CPT/HCPCS: 87635; G2023; U0003

== ENCOUNTER → 2020-05-25 16:31 | Outpatient (CLI) | payer MEDICAID, SELFPAY ==
--- NOTE | 2020-05-25 16:33 | RAD_ITS ---
STUDY: X-RAY CHEST REASON FOR EXAM: Female, 34 years old. cough and chest pain, 2 neg covid tests, positive for rhinovirus TECHNIQUE: PA and lateral views of the chest. COMPARISON: April 30, 2017 FINDINGS: The lungs are clear and expanded. There is no demonstrated pleural abnormality. Normal size heart. Normal mediastinum and radhames. Normal visualized pulmonary arteries. Normal visualized aortic arch and descending thoracic aorta. Normal visualized thoracic spine. Normal visualized ribs, clavicles, and shoulders. There is no demonstrated abnormality of the visualized soft tissue structures of the upper abdomen. RAD/Chest PA and Lateral IMPRESSION: Normal x-ray examination of the chest. Electronically Signed: Kashif Larsen MD at 16:52 EDT , Service support ,
== END ==
PROVIDERS: PCP Internal Medicine; Referring Provider Internal Medicine; Visit Provider Internal Medicine
DX: J45.901 Unspecified asthma with (acute) exacerbation (principal)
CPT/HCPCS: 71046

== ENCOUNTER 2021-07-21 11:47 | Inpatient (IN) | payer MEDICAID, SELFPAY ==
[2021-07-21] VITALS (14 sets, daily range): BP systolic 126–158; BP diastolic 66–97; PULSE 99–124; RESP 17–24; TEMP 36.4–37.3; O2SAT 88–105; BMI 45.1
--- NOTE | 2021-07-21 12:06 | EKG12_ITS ---
Test Reason : SOB Blood Pressure : / mmHG Vent. Rate : 097 BPM Atrial Rate : 097 BPM P-R Int : 128 ms QRS Dur : 078 ms QT Int : 344 ms P-R-T Axes : 033 036 035 degrees QTc Int : 436 ms Normal sinus rhythm Normal ECG Confirmed by INES SMALLS, LEANDRA ([id number]), film editor supervisor MAXIMINO SARMIENTO ([id number]) on 07/26/2021 10:12:35 AM Referred By: Confirmed By:LEANDRA CHACON MD
--- NOTE | 2021-07-21 12:06 | RAD_ITS ---
STUDY: X-RAY CHEST REASON FOR EXAM: Female, 36 years old. Shortness of breath, cough, wheezing TECHNIQUE: Single AP portable view of the chest. COMPARISON: Comparison is made with prior study dated 05/25/2020. FINDINGS: Focal lingular infiltrate. There is no demonstrated pleural abnormality. Normal size heart. Normal mediastinum and radhames. Normal visualized pulmonary arteries. Normal visualized aortic arch and descending thoracic aorta. Normal visualized thoracic spine. Normal visualized ribs, clavicles, and shoulders. There is no demonstrated abnormality of the visualized soft tissue structures of the upper abdomen. RAD/Chest 1 View (Portable) IMPRESSION: Focal lingular infiltrate. Electronically Signed: Harpreet Sotelo MD at 12:35 EST , Service support ,
--- NOTE | 2021-07-21 12:10 | ED.VIS.DYS ---
HPI History of Present Illness Chief Complaint: Shortness of Breath Informant: patient Onset/Context/Timing Onset: Days (Onset approximately 4 days ago) Context: sudden Timing: Continuous Quality: Positive for Dyspnea on exertion and Wheezing; Negative for Orthopnea and PND Current Severity: Mild Maximum Severity: Severe Worsened by: Exertion and Coughing Relieved by: Nothing Associated Symptoms cough and rhinorrhea; Negative for post nasal drip, ear pain, fever, sore throat, subjective, sweats, clear sputum, white sputum, yellow sputum or green sputum Chest Pain: Positive for None Narrative Narrative: Patient is a 36-year-old non-smoker with history of asthma who presents with mild nasal congestion, cough that is essentially nonproductive with wheezing. She'll complains of dyspnea at rest and dyspnea on exertion. She states she has difficulty walking across the room. She has been using her inhaler more frequently. She has not been on prednisone in the last 3 months. She denies headache, visual, ocular auditory symptoms. She denies loss or change in taste or smell. She denies history of VTE. Denies leg pain, swelling discoloration. She denies GI or symptoms. Her and children all have similar symptoms. PE Risk Factors: Negative for Cancer, OCP + Smoking + > 35, Prior DVT or PE, Recent immobilization, Recent surgery and Recent travel Prior similar symptoms: No Recent Illness/Hospitalization: No PFSH PFSH Medical History Abdominal hernia Abdominal pain Acute sinusitis Anemia, antepartum Anxiety Anxiety and depression Asthma Asthma exacerbation Bee sting reaction Depression Diarrhea Encounter for screening for COVID-19 Nausea Obesity affecting in third trimester Rh negative state in antepartum period Segmental and somatic dysfunction of lumbar region Segmental and somatic dysfunction of pelvic region Segmental and somatic dysfunction of sacral region Supervision of normal Umbilical hernia Home Medications cetirizine 10 mg capsule 10 mg PO DAILY 04/09/19 [History Last Taken Unknown] sertraline 100 mg tablet 200 mg PO DAILY #180 tab 11/24/20 [Rx Last Taken Unknown] albuterol sulfate 90 mcg/actuation aerosol inhaler 1 - 2 puff INHALATION Q4H PRN PRN #1 inhaler 06/30/21 [Rx Last Taken Unknown] albuterol sulfate 1.25 mg INHALATION Q4H 07/21/21 [History Last Taken Unknown] Allergy/AdvReac Type Severity Reaction Status Date / Time ciprofloxacin [From Cipro] Allergy Hives Verified 07/21/21 11:48 ciprofloxacin HCl Allergy Hives Verified 07/21/21 11:48 [From Cipro] buspirone [From BuSpar] AdvReac Other Verified 07/21/21 11:48 citalopram [From Celexa] AdvReac Other Verified 07/21/21 11:48 fluoxetine [From Prozac] AdvReac Other Verified 07/21/21 11:48 Family History Mother Hypertension Cancer Skin Surgical History History of S/P tonsillectomy Social History (Updated 07/21/21 @ 12:[address] Panda Linder MD) household members: spouse and children Smoking Status: Former smoker second hand exposure: No alcohol intake: current alcohol intake frequency: a few times a month substance use type: does not use caffeine: Yes what type of physical activity do you participate in: none frequency: does not exercise seatbelt use: always ROS ROS ED Constitutional Constitutional ED: Denies chills, fever(s), sweats or weight loss Eyes Eyes: Denies blurry vision, change in vision or diplopia ENT ENT ED: Reports rhinorrhea; Denies ear pain or sore throat Cardiovascular Cardiovascular: Reports palpitations; Denies chest pain, orthopnea or paroxysmal nocturnal dyspnea Respiratory/Chest Respiratory/Chest: Reports cough, dyspnea and dyspnea on exertion; Denies orthopnea, paroxysmal nocturnal dyspnea or sputum Gastrointestinal Gastrointestinal: Denies abdominal pain, constipation, diarrhea, melena or vomiting Genitourinary Genitourinary ED: Denies dysuria, hematuria or urinary frequency Musculoskeletal Musculoskeletal: Denies arthralgias, back pain, myalgias or neck pain Integumentary Denies rash Neurologic Neurologic: Reports headache(s) and weakness; Denies paresthesias Endocrine Endocrinology: Denies polydipsia, polyphagia or polyuria Hematologic/Lymphatic Hematologic/Lymphatic: Denies easy bleeding or easy bruising EXAM Physical Exam Const Vital Signs: 07/21/21 11:49 07/21/21 11:57 07/21/21 11:59 Temperature 99.1 F Temperature Source Oral Pulse Rate 100 Respiratory Rate 20 H Respiratory Effort Normal Non-Labored Respiratory Depth Normal Respiratory Pattern Normal Blood Pressure 129/80 H Blood Pressure Mean 96 Pulse Ox 90 95 Oxygen Delivery Method Room Air Room Air Room Air Oxygen Flow Rate (L/min) 07/21/21 12:35 07/21/21 12:39 07/21/21 13:36 Temperature 98 F Temperature Source Temporal Pulse Rate 103 H Respiratory Rate 17 Respiratory Effort Respiratory Depth Respiratory Pattern Blood Pressure 158/90 H Blood Pressure Mean 112 Pulse Ox 88 92 95 Oxygen Delivery Method Room Air Room Air Nasal Cannula Oxygen Flow Rate (L/min) 2 4 Positive well nourished, well developed and obese General Appearance ED: well developed; Negative for NAD or pallor Nutritional Appearance: obese HEENT Reports TM's clear and dry mucous membranes atraumatic; Negative for tenderness Tympanic Membrane ED: Yes TM's clear Mouth ED: Yes dry mucous membranes Mouth: dry mucous membranes Eyes PERRL and EOMs intact bilaterally General Eye ED: Negative for pale conjunctiva or scleral icterus Neck no lymphadenopathy, supple, no meningeal signs and no JVD Resp No normal respiratory effort and No clear to auscultation bilaterally Auscultation: rhonchi throughout, wheezes expiratory wheezes and throughout and diminished lung sounds Cardio regular rhythm, S1 normal heart sound, S2 normal heart sound and no murmurs Rate: tachycardic Rhythm: abnormal rhythm GI non-tender, non-distended and no masses Auscultation: normoactive bowel sounds Palpation: soft Back/Spine no CVA tenderness and normal to inspection Extremity normal to inspection Extremity Narrative: There is no asymmetry, swelling, discoloration, leg vein distention, palpable cords or tenderness along the distribution of the deep venous system. General Extremety ED: Negative for edema or tenderness General Extremity: Negative for edema Neuro oriented x3 and CN's II-XII intact bilaterally Eyal Coma Scale: document GCS findings Spontaneous Obeys Commands Oriented 15 Sensorium / Orientation: alert Psych mental status grossly normal Thought Process: normal thought process Skin no wounds General Skin Exam: Negative for jaundice or pallor Lesions: no lesions Rashes: no rashes MDM MDM MDM Narrative Medical decision making narrative: Patient presents with viral-like symptoms. Will test for Covid. Since she is wheezing has history of asthma she was treated with 60 mg of prednisone and 3 albuterol treatments. Chest x-ray was obtained to rule out pneumonia. Blood work to rule out hyponatremia, anemia Lab Data Attestation: I reviewed the patient's lab results. Lab results narrative: Patient's ABG is consistent with a venous blood gas and reveals no acid-base disturbance. For her respiratory rate her CO2 is slightly elevated. Will contact hospitalist for admission. Labs: Laboratory Results - last 24 hr 07/21/21 07/21/21 07/21/21 12:35 12:35 12:35 WBC 5.0 RBC 5.19 Hgb 12.7 Hct 40.9 MCV 78.8 L MCH 24.5 L MCHC 31.1 L RDW Std Deviation 43.5 RDW Coeff of Conrado 15.1 H Plt Count 157 MPV 8.9 Immature Gran % (Auto) 0.600 Neut % (Auto) 51.6 Lymph % (Auto) 32.0 [place] % (Auto) 7.0 Eos % (Auto) 8.4 H Baso % (Auto) 0.4 Absolute Neuts (auto) 2.6 Absolute Lymphs (auto) 1.60 Nucleated RBC % 0 Sodium 140 Potassium 3.9 Chloride 110 H Carbon Dioxide 24.0 Anion Gap 6 BUN 7 Creatinine 0.82 Estim Creat Clear Calc 83.48 Est GFR (MDRD) Af Amer 103 Est GFR (MDRD) Non-Af 85 BUN/Creatinine Ratio 8.5 L Glucose 94 Lactic Acid 2.1 H* Calcium 8.6 ABG Data ABG results: ABG 07/21/21 13:36 Specimen Type ART Sample Site R Radial pH 7.36 Bicarbonate Actual 23.8 Total CO2 25 Base Excess -2 O2 Saturation 59 L ABG pCO2 42.5 ABG pO2 32 L* Redd Test Positive O2 Delivery Device Cannula Liter Flow 4.0 Crit Call To/Read Back Yes Radiography Diagnostic Testing: Clinical Impression(s) from Imaging Studies Chest X-Ray 07/21/21 12:06 IMPRESSION: Focal lingular infiltrate. Electronically Signed: Harpreet Sotelo MD at 12:35 EST , Service support , Discharge Plan Dx/Rx/DC Orders Clinical Impression: Community acquired pneumonia, Acute respiratory failure with hypoxia, Acute asthma exacerbation Disposition Disposition: Acute Care Hospital [facility], [place]
[2021-07-21] MEDS: Albuterol 2.5 MG/3 ML VIAL.NEB. INHALATION ×3 (12:11)
[2021-07-21] MEDS: predniSONE 20 MG Tablet 60 MG PO (12:32)
[2021-07-21 12:42] LABS: Absolute Neutrophil Count 2.6 X10^3/uL (2.0-7.7); Basophil# 0.02 X10^3/uL; Basophil% 0.4 % (0-1); Eosinophil# 0.42 X10^3/uL; Eosinophils% 8.4 % (0-5); Hematocrit 40.9 % (37-47); Hemoglobin 12.7 g/dL (12.0-15.0); Mean Corp Hgb Conc 31.1 g/dL (32-36); Mean Corpuscular Hgb 24.5 pg (27.0-32.0); Mean Corpuscular Volume 78.8 fL (81-99); Mean Platelet Vol. 8.9 fl (6.2-12.0); Monocyte# 0.35 X10^3/uL; NRBC Flagged by Analyzer 0 % (0-5); Neutrophil # 2.58 X10^3/uL (2.7-7.7); Neutrophil % 51.6 % (47-70); Platelet Count 157 K/mm3 (150-450); RBC Distribution Width CV 15.1 % (11.6-14.6); RBC Distribution Width SD 43.5 fl (35.1-43.9); Red Blood Count 5.19 M/mm3 (4.2-5.4)
[2021-07-21 12:54] LABS: Anion Gap 6 (5-15); BUN 7 mg/dL (7-18); BUN/Creat Ratio 8.5 RATIO (10-20); Calcium,Total 8.6 mg/dL (8.5-10.1); Chloride 110 mmol/L (98-107); Creatinine, Serum 0.82 mg/dL (0.55-1.02); EST Glomerular Filtration Rate 85 mL/min (>60); Est Glom Filt Rate - Afr Amer 103 mL/min (>60); Estimated Creatinine Clearance 83.48 ml/min; Glucose 94 mg/dL (74-106); Potassium 3.9 mmol/L (3.5-5.1); Sodium Level 140 mmol/L (136-145)
[2021-07-21 13:06] LABS: Lactic Acid 2.1 mmol/L (0.4-1.9)
[2021-07-21 13:40] LABS: Allen Test Positive; Base Excess -2 mmol/L (-2 to +2); Bicarbonate 23.8 mmol/L (22-26); O2 Delivery Device Cannula; PO2 32 mmHG (75-100); SITE R Radial; SO2 59 % (95-99); Total Carbon Dioxide 25 mmol/L; pCO2 42.5 mmHg (35-45); pH 7.36 (7.35-7.45)
--- NOTE | 2021-07-21 13:45 | CPS ---
ABG draw was Venous gas, Kailash did not want a re-run. Unsufficiant amount of blood to re-run. Kailash notified of critical values by [employer]ER DRISS
[2021-07-21 16:37] LABS: Reflex Lactate? Y
[2021-07-21 17:57] LABS: Lactic Acid 2.8 mmol/L (0.4-1.9)
--- NOTE | 2021-07-21 18:11 | HP.PCM.HOS_ITS ---
HPI - General General Date of Admission: 07/21/21 HPI Narrative CHEN NIEVES, is a 36 F with PMH Of asthma and depression who presents with worsening shortness of breath and new chills and a cough that is essentially nonproductive. She has a history of asthma that goes back to her teen years and was hospitalized once during that time for an asthma exacerbation. At home she does take albuterol as needed but she is not on a maintenance and therapy. Due to her worsening symptoms she is using albuterol inhaler more often. She states that she was recently on a short course of azit hromycin and prednisone course for sinusitis. She has not had any recent visits for asthma exacerbations as he tells me. She has several children and who had flulike symptoms and cough and thinks he may have gotten this from them. The was tested recently for Covid and flu and was negative for both. Upon admission to the ER she was mildly hypoxic and was given 60 mg of prednisone and 3 albuterol treatments. VBG was not concerning for any significant respiratory acidosis or alternate alkalosis. COVID was negative. She had a Focal lingular infiltrate on CXR She is not a smoker or heavy ETOH user. [facility] Medical History Abdominal hernia Abdominal pain Acute sinusitis Anemia, antepartum Anxiety Anxiety and depression Asthma Asthma exacerbation Bee sting reaction Depression Diarrhea Encounter for screening for COVID-19 Nausea Obesity affecting in third trimester Rh negative state in antepartum period Segmental and somatic dysfunction of lumbar region Segmental and somatic dysfunction of pelvic region Segmental and somatic dysfunction of sacral region Supervision of normal Umbilical hernia Home Medications cetirizine 10 mg capsule 10 mg PO DAILY 04/09/19 [History Last Taken 07/20/21 21:00] albuterol sulfate 90 mcg/actuation aerosol inhaler 1 - 2 puff INHALATION Q4H PRN PRN #1 inhaler 06/30/21 [Rx Last Taken Unknown] albuterol sulfate 1.25 mg INHALATION Q4H 07/21/21 [History Last Taken Unknown] sertraline 200 mg PO DAILY 07/21/21 [History Last Taken 07/20/21 21:00] Allergy/AdvReac Type Severity Reaction Status Date / Time ciprofloxacin [From Cipro] Allergy Hives Verified 07/21/21 11:48 ciprofloxacin HCl Allergy Hives Verified 07/21/21 11:48 [From Cipro] buspirone [From BuSpar] AdvReac Other Verified 07/21/21 11:48 citalopram [From Celexa] AdvReac Other Verified 07/21/21 11:48 fluoxetine [From Prozac] AdvReac Other Verified 07/21/21 11:48 Family History Mother Hypertension Cancer Skin Surgical History History of S/P tonsillectomy Social History (Updated 07/21/21 @ 12:[address] Panda Linder MD) household members: spouse and children Smoking Status: Former smoker second hand exposure: No alcohol intake: current alcohol intake frequency: a few times a month substance use type: does not use caffeine: Yes what type of physical activity do you participate in: none frequency: does not exercise seatbelt use: always Vital Signs Vital Signs Vital Signs: 07/21/21 11:49 07/21/21 11:57 07/21/21 11:59 Temperature 99.1 F Temperature Source Oral Pulse Rate 100 Respiratory Rate 20 H Respiratory Effort Normal Non-Labored Respiratory Depth Normal Respiratory Pattern Normal Blood Pressure 129/80 H Blood Pressure Mean 96 Blood Pressure Source Blood Pressure Position Blood Pressure Location Pulse Ox 90 95 Oxygen Delivery Method Room Air Room Air Room Air Oxygen Flow Rate (L/min) 07/21/21 12:35 07/21/21 12:39 07/21/21 13:36 Temperature 98 F Temperature Source Temporal Pulse Rate 103 H Respiratory Rate 17 Respiratory Effort Respiratory Depth Respiratory Pattern Blood Pressure 158/90 H Blood Pressure Mean 112 Blood Pressure Source Blood Pressure Position Blood Pressure Location Pulse Ox 88 92 95 Oxygen Delivery Method Room Air Room Air Nasal Cannula Oxygen Flow Rate (L/min) 2 4 07/21/21 14:29 07/21/21 15:00 07/21/21 15:30 Temperature 98 F 97.7 F L Temperature Source Temporal Temporal Pulse Rate 99 109 H 102 H Respiratory Rate 19 H 18 Respiratory Effort Respiratory Depth Respiratory Pattern Blood Pressure 126/97 H 136/81 H Blood Pressure Mean 106 99 Blood Pressure Source Monitor Blood Pressure Position Semi-Fowlers Blood Pressure Location Right Arm Pulse Ox 94 97 Oxygen Delivery Method Nasal Cannula Nasal Cannula Oxygen Flow Rate (L/min) 4 3 07/21/21 15:35 07/21/21 16:09 Temperature Temperature Source Pulse Rate Respiratory Rate Respiratory Effort Normal Non-Labored Respiratory Depth Normal Respiratory Pattern Normal Blood Pressure Blood Pressure Mean Blood Pressure Source Blood Pressure Position Blood Pressure Location Pulse Ox Oxygen Delivery Method Nasal Cannula Nasal Cannula Oxygen Flow Rate (L/min) 3 4 Weight Weight: 263 lb 0.183 oz Body Mass Index (BMI) 45.1 Physical Exam Const alert Constitutional Narrative: mild distress and lethargy. Obese HEENT normocephalic Eyes PERRL and EOMs intact bilaterally Resp normal respiratory effort and no retractions Resp Narrative: Diffuse wheezes noted b/l without volume overload concerns Cardio regular rhythm, S1 normal heart sound and S2 normal heart sound GI normal to inspection, nondistended, normoactive bowel sounds Extremity normal to inspection and no clubbing, cyanosis or edema Skin no rashes or lesions noted and no wounds Neuro Sensorium / Orientation: alert Speech: speech normal Psych affect normal Results Lab / Micro Data Result Diagrams: 07/21/21 12:35 07/21/21 12:35 Labs: Laboratory Results - last 24 hr 07/21/21 12:35: WBC 5.0, RBC 5.19, Hgb 12.7, Hct 40.9, MCV 78.8 L, MCH 24.5 L, MCHC 31.1 L, RDW Std Deviation 43.5, RDW Coeff of Conrado 15.1 H, Plt Count 157, MPV 8.9, Immature Gran % (Auto) 0.600, Neut % (Auto) 51.6, Lymph % (Auto) 32.0, [place] % (Auto) 7.0, Eos % (Auto) 8.4 H, Baso % (Auto) 0.4, Absolute Neuts (auto) 2.6, Absolute Lymphs (auto) 1.60, Nucleated RBC % 0 07/21/21 12:35: Sodium 140, Potassium 3.9, Chloride 110 H, Carbon Dioxide 24.0, Anion Gap 6, BUN 7, Creatinine 0.82, Estim Creat Clear Calc 83.48, Est GFR (MDRD) Af Amer 103, Est GFR (MDRD) Non-Af 85, BUN/Creatinine Ratio 8.5 L, Glucose 94, Calcium 8.6 07/21/21 12:35: Lactic Acid 2.1 H* 07/21/21 17:08: Lactic Acid 2.8 H* Micro: Microbiology 07/21/21 12:16 Nasal Secretion SARS-CoV-2 Antigen (Rapid) - Final ABG Data ABG results: ABG 07/21/21 13:36 Specimen Type ART Sample Site R Radial pH 7.36 Bicarbonate Actual 23.8 Total CO2 25 Base Excess -2 O2 Saturation 59 L ABG pCO2 42.5 ABG pO2 32 L* Redd Test Positive O2 Delivery Device Cannula Liter Flow 4.0 Crit Call To/Read Back Yes Radiology Impression Chest X-Ray 07/21/21 12:06 IMPRESSION: Focal lingular infiltrate. Electronically Signed: Harpreet Sotelo MD at 12:35 EST , Service support , Assessment & Plan Assessment/Plan (1) Acute respiratory failure with hypoxia: (2) Community acquired pneumonia: (3) Anxiety and depression: (4) Acute asthma exacerbation: PLAN: Asthma Exacerbation Acute hypoxic respiratory failure CA Pnuemonia -Continue 60 mg prednisone daily -Continue DuoNeb scheduled -Continue Rocephin with azithromycin for community-acquired pneumonia coverage, given chills/hypoxia/tachycardia and her small infiltrate on chest x-ray -Continue incentive spirometry and chest physiotherapy -Patient will need to have maintenance inhalers prescribed on discharge, for better control -ABG reviewed -Lactate is mildly elevated but expected to improve with therapy -Continue nasal cannula 2 L to maintain sats above 90% -No indication for IV fluids at this time and I did encourage p.o. intake Depression -Continue home sertraline Code status: Full Diet: Full diet SCD: Maria R Champion MD Charges/Coding Visit Charges Inpatient E&M: 35305 Init Hosp L2
--- NOTE | 2021-07-21 20:21 | PCM.HOSP.N ---
Hospitalist Note Given the patient does have tachycardia with decreased PO intake and mild acidosis, will give one liter of NS and evaluate her response to IV fluid. The patient likely has a mild component of dehydration and Intravascular depletion and her respiratory status (stable) is stable to tolerate 1 liter of fluid
--- NOTE | 2021-07-21 20:23 | EKG12_ITS ---
Test Reason : PNEUMONIA SOB Blood Pressure : / mmHG Vent. Rate : 112 BPM Atrial Rate : 112 BPM P-R Int : 142 ms QRS Dur : 078 ms QT Int : 334 ms P-R-T Axes : 055 035 029 degrees QTc Int : 455 ms Sinus tachycardia Otherwise normal ECG Confirmed by INES SMALLS, LEANDRA ([id number]), metropolitan editor MAXIMINO SARMIENTO ([id number]) on 07/26/2021 10:24:27 AM Referred By: ANDREA Confirmed By:LEANDRA CHACON MD
[2021-07-21] MEDS: Ipratropium/Albuterol Sulfate 3 ML AMPUL.NEB INHALATION (20:44)
[2021-07-21] MEDS: 0.9% Normal Saline 1,000 ML 250 ML IV (21:03)
[2021-07-21] MEDS: 0.9% Saline Lock 10 ML Syringe IV (23:49)
[2021-07-22] VITALS (13 sets, daily range): BP systolic 119–143; BP diastolic 77–95; PULSE 75–116; RESP 14–20; TEMP 36.7–37; O2SAT 93–97
[2021-07-22] MEDS: Acetaminophen 325 MG Tablet 650 MG PO ×3 (01:38→19:48)
[2021-07-22] MEDS: Ipratropium/Albuterol Sulfate 3 ML AMPUL.NEB INHALATION ×4 (03:30→20:32)
[2021-07-22 06:06] LABS: Blood Gas Specimen Type VEN
[2021-07-22 06:58] LABS: Absolute Lymphocyte Count 1.99 X10^3/uL (0.83-4.51); Absolute Neutrophil Count 2.8 X10^3/uL (2.0-7.7); Basophil# 0.03 X10^3/uL; Basophil% 0.6 % (0-1); Eosinophil# 0.18 X10^3/uL; Eosinophils% 3.4 % (0-5); Hematocrit 39.4 % (37-47); Hemoglobin 12.3 g/dL (12.0-15.0); Lymphocyte # 1.99 X10^3/ul (0.83-4.51); Lymphocyte % 37.1 % (19-41); Mean Corp Hgb Conc 31.2 g/dL (32-36); Mean Corpuscular Hgb 24.4 pg (27.0-32.0); Mean Corpuscular Volume 78.2 fL (81-99); Mean Platelet Vol. 9.1 fl (6.2-12.0); Monocyte# 0.35 X10^3/uL; Monocyte% 6.5 % (0-10); NRBC Flagged by Analyzer 0 % (0-5); Neutrophil % 52.2 % (47-70); Platelet Count 180 K/mm3 (150-450); RBC Distribution Width CV 15.1 % (11.6-14.6); RBC Distribution Width SD 42.8 fl (35.1-43.9); Red Blood Count 5.04 M/mm3 (4.2-5.4); White Blood Count 5.4 K/mm3 (4.4-11.0)
[2021-07-22 07:23] LABS: Anion Gap 11 (5-15); BUN 7 mg/dL (7-18); BUN/Creat Ratio 9.2 RATIO (10-20); Calcium,Total 8.4 mg/dL (8.5-10.1); Chloride 108 mmol/L (98-107); Creatinine, Serum 0.76 mg/dL (0.55-1.02); EST Glomerular Filtration Rate 92 mL/min (>60); Est Glom Filt Rate - Afr Amer 112 mL/min (>60); Estimated Creatinine Clearance 90.07 ml/min; Glucose 105 mg/dL (74-106); Phosphorus 2.7 mg/dL (2.5-4.9); Potassium 3.5 mmol/L (3.5-5.1); Sodium Level 141 mmol/L (136-145)
--- NOTE | 2021-07-22 07:57 | PCS.PANDOC ---
PANDEMIC DOCUMENTATION INITIATED: Date: 03/15/2021 Time: 190
[2021-07-22] MEDS: guaiFENesin 10 ML UDC (200MG/10ML) 20 ML PO ×2 (09:17→19:48)
[2021-07-22] MEDS: Azithromycin 250 MG Tablet 500 MG PO (09:17)
[2021-07-22] MEDS: predniSONE 20 MG Tablet 60 MG PO (09:18)
[2021-07-22] MEDS: Enoxaparin 40 MG/0.4 ML Syringe SC (09:18)
[2021-07-22] MEDS: 0.9% Saline Lock 10 ML Syringe IV (09:21)
[2021-07-22] MEDS: Sertraline 100 MG Tablet 200 MG PO (10:16)
--- NOTE | 2021-07-22 10:45 | CASEMGMT ---
RN KASSI SNUFF GRINDER CM to room to meet with patient for initial transition planning/care coordination assessment. RN KASSI introduced self and role at [facility]. Pt voices understanding and consents to assessment at this time. Pt resting in bed in no distress at this time. Pt is A/O at this time and answers all questions appropriately. Care providers, pharmacy, and demographics verified/updated at this time. PCP: Dr Payne Specialists: none Preferred Pharmacy: [facility] Insurance: [employer] Prescription Benefit: Yes Living Will/HPOA: Pt does not currently have LW/HCPOA and declines info at this time. LNOK: , Edis Living Arrangements: Lives w/ and daughters. Independent Transportation: Pt states drives self and states no transportation concerns at this time. also drives. DME: States has the following DME: nebulizer. Does not have home O2. Given list of local DME companies if O2 is needed @ d/c. Pt denies having preference. HHC/SNF: No hx of either. No needs identified. Pt wishes to return home and states has no concerns with going home at time of discharge. CM to follow for home oxygen needs and any further discharge planning/needs. Pt voices no further concerns/needs at this time. Advised pt to ask for CM if any further questions/concerns/needs arise. Voices understanding. PLAN: Home. Follow for any Home O2 needs @ d/c. Green sheet on chart w/instructions for Home O2 set up, if needed. Bernabe LUNDY RN, CM
--- NOTE | 2021-07-22 13:25 | PCM.PN.HOSP ---
Documented by User: Fernando RUTHERFORD 07/22/21 13:39 Subjective Subjective Patient is a 36-year-old female comfortably resting in bed, alert and orient x3. Patient reports improvement in her shortness of breath from admission. Denies development of any new symptoms overnight. Does not appear in acute distress. Objective Data Objective Data Vital Signs: Vital Signs Temp Pulse Resp BP Pulse Ox 98.4 F 97 16 119/77 97 07/22/21 09:25 07/22/21 09:25 07/22/21 09:25 07/22/21 09:25 07/22/21 09:25 Oxygen Flow Rate (L/min) 2 Oxygen Delivery Method Nasal Cannula Weight: 263 lb 0.183 oz Body Mass Index (BMI) 45.1 Intake & Output: Intake and Output for Last 24 Hours 07/20/21 07/21/21 07/22/21 23:59 23:59 23:59 Intake Total 1091.67 / 1091.67 1183.33 / 1183.33 Balance 1091.67 / 1091.67 1183.33 / 1183.33 Lab / Micro Data Result Diagrams: 07/22/21 05:30 07/22/21 05:30 Labs: Laboratory Results - last 24 hr 07/21/21 17:08: Lactic Acid 2.8 H* 07/22/21 05:30: WBC 5.4, RBC 5.04, Hgb 12.3, Hct 39.4, MCV 78.2 L, MCH 24.4 L, MCHC 31.2 L, RDW Std Deviation 42.8, RDW Coeff of Conrado 15.1 H, Plt Count 180, MPV 9.1, Immature Gran % (Auto) 0.200, Neut % (Auto) 52.2, Lymph % (Auto) 37.1, [place] % (Auto) 6.5, Eos % (Auto) 3.4, Baso % (Auto) 0.6, Absolute Neuts (auto) 2.8, Absolute Lymphs (auto) 1.99, Nucleated RBC % 0 07/22/21 05:30: Sodium 141, Potassium 3.5, Chloride 108 H, Carbon Dioxide 22.0, Anion Gap 11, BUN 7, Creatinine 0.76, Estim Creat Clear Calc 90.07, Est GFR (MDRD) Af Amer 112, Est GFR (MDRD) Non-Af 92, BUN/Creatinine Ratio 9.2 L, Glucose 105, Calcium 8.4 L, Phosphorus 2.7, Magnesium 2.0 Micro: Microbiology 07/21/21 15:30 Interface Orders Respiratory Panel (PCR) - Final Parainfluenza 2 07/21/21 12:16 Nasal Secretion SARS-CoV-2 Antigen (Rapid) - Final ABG Data ABG results: ABG 07/21/21 13:36 Specimen Type LOGAN Sample Site R Radial pH 7.36 Bicarbonate Actual 23.8 Total CO2 25 Base Excess -2 O2 Saturation 59 L ABG pCO2 42.5 ABG pO2 32 L* Redd Test Positive O2 Delivery Device Cannula Liter Flow 4.0 Crit Call To/Read Back Yes Physical Exam Const alert, oriented x3 and no apparent distress HEENT head/scalp atraumatic and moist oral mucous membranes Head and Scalp: normocephalic Eyes PERRL, EOMs intact bilaterally and conjunctivae normal Neck no lymphadenopathy, supple and no JVD Resp normal respiratory effort, normal air movement and no retractions Auscultation: diminished lung sounds Cardio regular rate, regular rhythm, no murmurs and no JVD GI normal to inspection, nondistended, normoactive bowel sounds, soft to palpation and non-tender Extremity normal to inspection, full ROM and no clubbing, cyanosis or edema Skin no rashes or lesions noted, no wounds and skin turgor normal Neuro CN's II-XII intact bilaterally Psych affect normal Assessment & Plan Assessment/Plan (1) Acute respiratory failure with hypoxia: (2) Community acquired pneumonia: (3) Acute asthma exacerbation: PLAN: Day 1 Discharge planning: Current plan is for patient to discharge home when she is medically ready. 1) acute on chronic asthma exacerbation Patient is currently satting 97% on 2 L via nasal cannula. Patient does not use oxygen at home. Patient is not back to baseline oxygen requirements. Continue prednisone duo nebs. Patient will need updated prescription of inhalers on discharge. 2) community-acquired pneumonia Patient was initiated on Rocephin and azithromycin on admission given hypoxia and tachycardia in the presence of a small infiltrate on chest x-ray. Continue azithromycin and Rocephin. 3) depression Continue Zoloft. DVT prophylaxis - Lovenox Patient seen by Fernando Duong PA-C, under the supervision of Dr. Grewal. Documented by User: Dr. Ary Grewal MD 07/22/21 14:35 Objective Data Lab / Micro Data Result Diagrams: 07/22/21 05:30 07/22/21 05:30 Charges/Coding Addendum Addendum: This patient was seen in conjunction with KRISH Edge. I have independently interviewed and examined the patient and reviewed pertinent historical, laboratory, and other data. Please refer to KRISH Edge's note for his patient's presentation, findings, and recommendations. I have reviewed and his note and concur with his documentation Patient was seen and examined. She feels improved. She is currently on 2 L of oxygen. Physical Exam: Gen: Morbidly obese, comfortable, not pale, not jaundiced, on 2 L of oxygen CVS:HS I +II, regular, no murmurs RESP: Diminished at lung bases GI: BS present and normal, soft, nontender, no palpable organs EXT:No edema ASSESSMENT: 1. Acute hypoxic respiratory failure 2. Acute asthma exacerbation/parainfluenza 2 bronchitis 3. Community-acquired pneumonia 4. Chronic back pain 5. Morbid obesity 6. Anxiety/depression Plan: Continue on IV antibiotics, breathing treatments, prednisone Visit Charges Inpatient E&M: 85701 Subs Hosp L2
[2021-07-23] VITALS (8 sets, daily range): BP systolic 127–137; BP diastolic 74–83; PULSE 88–101; RESP 16–20; TEMP 36.6–36.7; O2SAT 93–98
[2021-07-23] MEDS: Ipratropium/Albuterol Sulfate 3 ML AMPUL.NEB INHALATION ×2 (00:18→06:59)
[2021-07-23] MEDS: guaiFENesin 10 ML UDC (200MG/10ML) 20 ML PO (01:51)
[2021-07-23 08:09] LABS: Absolute Lymphocyte Count 3.02 X10^3/uL (0.83-4.51); Absolute Neutrophil Count 3.6 X10^3/uL (2.0-7.7); Basophil# 0.02 X10^3/uL; Basophil% 0.3 % (0-1); Eosinophil# 0.15 X10^3/uL; Eosinophils% 2.1 % (0-5); Hematocrit 40.2 % (37-47); Hemoglobin 13.1 g/dL (12.0-15.0); Lymphocyte # 3.02 X10^3/ul (0.83-4.51); Lymphocyte % 41.9 % (19-41); Mean Corp Hgb Conc 32.6 g/dL (32-36); Mean Corpuscular Hgb 25.2 pg (27.0-32.0); Mean Corpuscular Volume 77.3 fL (81-99); Mean Platelet Vol. 8.8 fl (6.2-12.0); Monocyte# 0.43 X10^3/uL; NRBC Flagged by Analyzer 0 % (0-5); Neutrophil # 3.56 X10^3/uL (2.7-7.7); Neutrophil % 49.4 % (47-70); Platelet Count 199 K/mm3 (150-450); RBC Distribution Width CV 14.9 % (11.6-14.6); RBC Distribution Width SD 41.3 fl (35.1-43.9); White Blood Count 7.2 K/mm3 (4.4-11.0)
[2021-07-23 08:45] LABS: AST(SGOT) 11 U/L (15-37); Alanine Aminotransfer ALT/SGPT 22 U/L (13-56); Albumin, Serum 3.7 g/dL (3.2-5.0); Alkaline Phosphatase 69 U/L (45-117); Anion Gap 6 (5-15); BUN 9 mg/dL (7-18); BUN/Creat Ratio 10.6 RATIO (10-20); Calcium,Total 8.5 mg/dL (8.5-10.1); Chloride 109 mmol/L (98-107); Creatinine, Serum 0.85 mg/dL (0.55-1.02); EST Glomerular Filtration Rate 82 mL/min (>60); Est Glom Filt Rate - Afr Amer 99 mL/min (>60); Estimated Creatinine Clearance 80.53 ml/min; Globulin 3.6 g/dL (2.2-4.2); Glucose 79 mg/dL (74-106); Potassium 3.4 mmol/L (3.5-5.1); Protein, Total 7.3 g/dL (6.4-8.2); Sodium Level 140 mmol/L (136-145)
[2021-07-23] MEDS: predniSONE 20 MG Tablet 60 MG PO (09:10)
[2021-07-23] MEDS: Azithromycin 250 MG Tablet 500 MG PO (09:15)
[2021-07-23] MEDS: Enoxaparin 40 MG/0.4 ML Syringe SC (09:15)
[2021-07-23] MEDS: Sertraline 100 MG Tablet 200 MG PO (09:15)
--- NOTE | 2021-07-23 10:35 | PCM.DC ---
Discharge Instructions Diet Discharge Diet: No restrictions Activity Discharge Activity: Return to Normal Activity Weight Bearing Status: Weight bearing as tolerated Dressing / Incision Call your doctor if you observe: Fever of 101 or Higher, Numbness or Tingling, Shortness of breath, Dizziness, Chest pain, Increased palpitations (irregular heartbeat) and Calf discomfort Follow Up Care Please Follow Up With: Primary care provider When: Within the next two weeks. Test Results: Test results from this visit will be discussed in further detail at your follow-up appointment, if applicable. Discharge Plan Admission Admit Date/Time: 07/21/21 14:30 Primary Reason for Your Visit: Asthma exacerbation Attending Provider: Ary Grewal Primary Care Provider: Rekha Payne Discharge Orders/Prescriptions Prescriptions: New prednisone 10 mg tablet See Taper mg PO DAILY Qty: 30 RF: 0 amoxicillin-pot clavulanate [Augmentin] 875-125 mg tablet 1 tab PO BID Qty: 10 RF: 0 Continued Zyrtec 10 mg capsule 10 mg PO DAILY RF: 0 sertraline 100 mg tablet 200 mg PO DAILY RF: 0 albuterol sulfate 1.25 mg/3 mL Solution For Nebulization 1.25 mg INHALATION Q4H Qty: 360 RF: 0 albuterol sulfate 90 mcg/actuation HFA aerosol inhaler 1 - 2 puff inhalation Q4H PRN PRN (Reason: Shortness Of Breath) Qty: 1 RF: 4 Referrals / Follow Up: Rekha Payne MD [Primary Care Provider] - Within 2 Weeks Disposition Disposition (needs filled in before D/C Order can be placed): Home, Self Care
[2021-07-23] MEDS: Potassium Chloride Oral Tablet 20 MEQ 40 MEQ PO (10:58)
--- NOTE | 2021-07-23 13:31 | DS.PCM_ITS ---
Documented by User: Fernando RUTHERFORD 07/23/21 13:39 Providers Date of Admission: 07/21/21 Primary Care Physician: Dr. Rekha Payne MD Reason For Visit: PNEUMONIA Diagnosis Discharge Diagnosis (1) Acute respiratory failure with hypoxia: Status: Acute Code(s): J96.01 - Acute respiratory failure with hypoxia (2) Community acquired pneumonia: Status: Acute Code(s): J18.9 - Pneumonia, unspecified organism (3) Acute asthma exacerbation: Status: Acute Code(s): J45.901 - Unspecified asthma with (acute) exacerbation Medications at Discharge Home Medications cetirizine 10 mg capsule 10 mg PO DAILY 04/09/19 sertraline 200 mg PO DAILY 07/21/21 albuterol sulfate 1 - 2 puff INHALATION Q4H PRN PRN #1 inhaler 07/23/21 albuterol sulfate 1.25 mg INHALATION Q4H #360 ml 07/23/21 amoxicillin-pot clavulanate [Augmentin] 1 tab PO BID #10 tab 07/23/21 fluconazole 200 mg PO DAILY #14 tab 07/23/21 prednisone See Taper PO DAILY #30 tab 07/23/21 Hospital Course Summary of Care Provided Minutes Spent on Discharge: 35 Hospital Course: Disposition: Patient to be discharged home. 1) acute on chronic asthma exacerbation Patient shortness of breath has resolved from admission. Patient was satting 94% with ambulation on room air. Patient home breathing treatments were continued, prednisone taper initiated on discharge. 2) community-acquired pneumonia Patient was initiated on Rocephin and azithromycin on admission given hypoxia and tachycardia in the presence of a small infiltrate on chest x-ray. On day of discharge vital signs are stable and patient is afebrile. CBC did not demonstrate a leukocytosis. Blood cultures demonstrated no growth. Rapid Covid was negative. Patient was continued on Augmentin for 5 more days on discharge. 3) parainfluenza virus Viral respiratory panel positive for parainfluenza virus type II. Plan as above. 3) depression Continue Zoloft. Patient seen by Fernando Duong PA-C, under the supervision of Dr. Grewal. Physical Exam Narrative Patient is a 36-year-old female comfortably resting in bed, alert and orient x3. Patient reports significant improvement in her shortness of breath from admission. Denies development of any new symptoms overnight. Does not appear in acute distress. Const alert, oriented x3 and no apparent distress HEENT normocephalic, head/scalp atraumatic and hearing grossly normal bilaterally Eyes PERRL, EOMs intact bilaterally and conjunctivae normal Neck no lymphadenopathy, supple and no JVD Resp normal respiratory effort, no retractions and no use of accessory muscles Auscultation: diminished lung sounds Cardio regular rate, regular rhythm, no murmurs and no JVD GI normal to inspection, nondistended, normoactive bowel sounds, soft to palpation and non-tender Extremity normal to inspection, full ROM and no clubbing, cyanosis or edema Skin no rashes or lesions noted, no wounds and skin turgor normal Neuro CN's II-XII intact bilaterally Psych affect normal Weight / BMI Weight Weight: 263 lb 0.183 oz Body Mass Index (BMI) 45.1 ABG / Lab / Microbiology Data Result Diagrams: 07/23/21 07:58 07/23/21 07:58 Laboratory: Laboratory Results - last 24 hr 07/23/21 07:58: WBC 7.2, RBC 5.20, Hgb 13.1, Hct 40.2, MCV 77.3 L, MCH 25.2 L, MCHC 32.6, RDW Std Deviation 41.3, RDW Coeff of Conrado 14.9 H, Plt Count 199, MPV 8.8, Immature Gran % (Auto) 0.300, Neut % (Auto) 49.4, Lymph % (Auto) 41.9 H, Mcdonough % (Auto) 6.0, Eos % (Auto) 2.1, Baso % (Auto) 0.3, Absolute Neuts (auto) 3.6, Absolute Lymphs (auto) 3.02, Nucleated RBC % 0 07/23/21 07:58: Sodium 140, Potassium 3.4 L, Chloride 109 H, Carbon Dioxide 25. 0, Anion Gap 6, BUN 9, Creatinine 0.85, Estim Creat Clear Calc 80.53, Est GFR (MDRD) Af Amer 99, Est GFR (MDRD) Non-Af 82, BUN/Creatinine Ratio 10.6, Glucose 79, Calcium 8.5, Total Bilirubin 0.20, AST 11 L, ALT 22, Alkaline Phosphatase 69, Total Protein 7.3, Albumin 3.7, Globulin 3.6, Albumin/Globulin Ratio 1.0 Microbiology: Microbiology 07/21/21 13:30 Blood Culture (Wb) - Anticubital Right Blood Culture - Preliminary No growth in 48 hours. 07/21/21 13:35 Blood Culture (Wb) - Anticubital Left Blood Culture - Preliminary No growth in 48 hours. 07/21/21 15:30 Interface Orders Respiratory Panel (PCR) - Final Parainfluenza 2 07/21/21 12:16 Nasal Secretion SARS-CoV-2 Antigen (Rapid) - Final D/C Instructions Discharge Diet: No restrictions Weight Bearing Status: Weight bearing as tolerated Call your doctor if you observe: Fever of 101 or Higher, Numbness or Tingling, Shortness of breath, Dizziness, Chest pain, Increased palpitations (irregular heartbeat) and Calf discomfort Please Follow Up With: Primary care provider When: Within the next two weeks. Meaningful Use Info Meaningful Use Diagnoses (Choose all that apply): None applicable Discharge Plan Admission Admit Date/Time: 07/21/21 14:30 Primary Reason for Your Visit: Asthma exacerbation Attending Provider: Ary Grewal Primary Care Provider: Rekha Payne Discharge Orders/Prescriptions Prescriptions: New prednisone 10 mg tablet See Taper mg PO DAILY Qty: 30 RF: 0 amoxicillin-pot clavulanate [Augmentin] 875-125 mg tablet 1 tab PO BID Qty: 10 RF: 0 fluconazole 200 mg tablet 200 mg PO DAILY Qty: 14 RF: 0 Continued Zyrtec 10 mg capsule 10 mg PO DAILY RF: 0 sertraline 100 mg tablet 200 mg PO DAILY RF: 0 albuterol sulfate 1.25 mg/3 mL Solution For Nebulization 1.25 mg INHALATION Q4H Qty: 360 RF: 0 albuterol sulfate 90 mcg/actuation HFA aerosol inhaler 1 - 2 puff inhalation Q4H PRN PRN (Reason: Shortness Of Breath) Qty: 1 RF: 4 Referrals / Follow Up: Rekha Payne MD [Primary Care Provider] - Within 2 Weeks Disposition Disposition (needs filled in before D/C Order can be placed): Home, Self Care Documented by User: Dr. Ary Grewal MD 07/23/21 13:55 Providers Date of Admission: 07/21/21 Reason For Visit: PNEUMONIA Medications at Discharge Home Medications cetirizine 10 mg capsule 10 mg PO DAILY 04/09/19 sertraline 200 mg PO DAILY 07/21/21 albuterol sulfate 1 - 2 puff INHALATION Q4H PRN PRN #1 inhaler 07/23/21 albuterol sulfate 1.25 mg INHALATION Q4H #360 ml 07/23/21 amoxicillin-pot clavulanate [Augmentin] 1 tab PO BID #10 tab 07/23/21 fluconazole 200 mg PO DAILY #14 tab 07/23/21 prednisone See Taper PO DAILY #30 tab 07/23/21 ABG / Lab / Microbiology Data Result Diagrams: 07/23/21 07:58 07/23/21 07:58 Discharge Plan Admission Admit Date/Time: 07/21/21 14:30 Primary Reason for Your Visit: Asthma exacerbation Attending Provider: Ary Grewal Primary Care Provider: Rekha Payne Discharge Orders/Prescriptions Prescriptions: New prednisone 10 mg tablet See Taper mg PO DAILY Qty: 30 RF: 0 amoxicillin-pot clavulanate [Augmentin] 875-125 mg tablet 1 tab PO BID Qty: 10 RF: 0 fluconazole 200 mg tablet 200 mg PO DAILY Qty: 14 RF: 0 Continued Zyrtec 10 mg capsule 10 mg PO DAILY RF: 0 sertraline 100 mg tablet 200 mg PO DAILY RF: 0 albuterol sulfate 1.25 mg/3 mL Solution For Nebulization 1.25 mg INHALATION Q4H Qty: 360 RF: 0 albuterol sulfate 90 mcg/actuation HFA aerosol inhaler 1 - 2 puff inhalation Q4H PRN PRN (Reason: Shortness Of Breath) Qty: 1 RF: 4 Referrals / Follow Up: Rekha Payne MD [Primary Care Provider] - Within 2 Weeks Disposition Disposition (needs filled in before D/C Order can be placed): Home, Self Care Charges/Coding Addendum Addendum: This patient was seen in conjunction with KRISH Edge. I have independently interviewed and examined the patient and reviewed pertinent historical, laboratory, and other data. Please refer to KRISH Edge's note for his patient's presentation, findings, and recommendations. I have reviewed and his note and concur with his documentation 36-year-old with past medical history of asthma, who presented with progressive shortness of breath. Patient was found to be hypoxic and requiring oxygen. She was managed at acute asthma exacerbation. Her respiratory panel was positive for parainfluenza 2. She also had focal lingular infiltrates on admitting chest x-ray. Patient was managed on IV ceftriaxone, azithromycin and Solu-Medrol. Patient continued to improve and did not require oxygen at discharge. She was discharged home on a prednisone taper as well as 5 more days of Augmentin making a total of 7 days. On the day of discharge, patient was seen and examined. She feels much improved. Physical Exam: Gen: Morbidly obese, comfortable, not pale, not jaundiced, not on oxygen CVS:HS I +II, regular, no murmurs RESP: Diminished generally GI: BS present and normal, soft, nontender, no palpable organs EXT:No edema Visit Charges Inpatient E&M: [id number] Disch Hosp
== END 2021-07-23 12:09 | disposition home or self-care (01) | DRG 133 ==
LOC: ED 13:43 → PCU 15:45
PROVIDERS: Admitting Provider Hospitalist; Emergency Provider Emergency Medicine; PCP Internal Medicine; Visit Provider Internal Medicine
DX: J96.01 Acute respiratory failure with hypoxia (principal); J18.9 Pneumonia, unspecified organism; E66.01 Morbid (severe) obesity due to excess calories; Z68.42 Body mass index [BMI] 45.0-49.9, adult; J45.901 Unspecified asthma with (acute) exacerbation; F41.9 Anxiety disorder, unspecified; M54.9 Dorsalgia, unspecified; G89.29 Other chronic pain; F32.A Depression, unspecified; B34.8 Other viral infections of unspecified site; Z88.1 Allergy status to other antibiotic agents; Z82.49 Family history of ischemic heart disease and other diseases of the circulatory system; Z98.891 History of uterine scar from previous surgery
CPT/HCPCS: 36415; 36600; 71045; 80048; 80053; 82803; 83605; 83735; 84100; 85025; 87040; 87426; 87633; 93005; 94640; 94667; 94668; 99251; 99284; 99406; J7040; A4216; G0463; J0696

== ENCOUNTER 2021-07-25 17:51 | Emergency (ER) | payer MEDICAID, SELFPAY ==
[2021-07-25 17:52] VITALS: BP 163/84; PULSE 110; RESP 20; TEMP 36.6; O2SAT 94; BMI 44.6
[2021-07-25 18:07] VITALS: BP 163/84; PULSE 110; RESP 20; TEMP 36.6; O2SAT 94
--- NOTE | 2021-07-25 18:17 | EX.ED.VIS.UR ---
HPI HPI - URI History of Present Illness Chief Complaint: Shortness of Breath Informant: patient Onset/Context/Timing Onset: Days Context: Gradual Onset Timing: Continuous Current Severity: Mild Maximum Severity: Mild Associated Symptoms Associated Symptoms: Positive for Nasal Congestion, Shortness of Breath and Nonproductive cough; Negative for Nausea, Vomiting, Diarrhea and Hemoptysis Narrative Narrative: 36-year-old female history of asthma was diagnosed on 07/21 with a left lingular pneumonia. Currently was on Augmentin. She was hospitalized for 2 days and was discharged on Carter Thuy. Currently on antibiotics and prednisone. States she feels slightly more short of breath. No hemoptysis. Prior similar symptoms: Yes Recent Illness/Hospitalization: Yes ROS ROS ED ROS Narrative Cough. Fatigue. Review of Systems ROS Unobtainable: Denies due to encephalopathy Constitutional Constitutional ED: Reports fever(s) ENT ENT ED: Denies ear pain Cardiovascular Cardiovascular: Denies chest pain Respiratory/Chest Respiratory/Chest: Reports cough and dyspnea Gastrointestinal Gastrointestinal: Denies abdominal pain, diarrhea, nausea or vomiting Genitourinary Genitourinary ED: Denies dysuria Musculoskeletal Musculoskeletal: Reports myalgias Integumentary Reports rash Neurologic Neurologic: Reports headache(s) Psychiatric Psychiatric: Reports depression Endocrine Endocrinology: Reports polyuria Hematologic/Lymphatic Hematologic/Lymphatic: Reports easy bruising Allergic/Immunologic Allergic/Immunologic ED: Reports urticaria PFSH PFSH Medical History Abdominal hernia Abdominal pain Acute sinusitis Anemia, antepartum Anxiety Anxiety and depression Asthma Asthma exacerbation Bee sting reaction Depression Diarrhea Encounter for screening for COVID-19 Nausea Obesity affecting in third trimester Rh negative state in antepartum period Segmental and somatic dysfunction of lumbar region Segmental and somatic dysfunction of pelvic region Segmental and somatic dysfunction of sacral region Supervision of normal Umbilical hernia Home Medications cetirizine 10 mg capsule 10 mg PO DAILY 04/09/19 [History Last Taken 07/20/21 21:00] sertraline 200 mg PO DAILY 07/21/21 [History Last Taken 07/20/21 21:00] albuterol sulfate 1 - 2 puff INHALATION Q4H PRN PRN #1 inhaler 07/23/21 [Rx Last Taken Unknown] albuterol sulfate 1.25 mg INHALATION Q4H #360 ml 07/23/21 [Rx Last Taken Unknown] amoxicillin-pot clavulanate [Augmentin] 1 tab PO BID #10 tab 07/23/21 [Rx Last Taken Unknown] fluconazole 200 mg PO DAILY #14 tab 07/23/21 [Rx Last Taken Unknown] prednisone See Taper PO DAILY #30 tab 07/23/21 [Rx Last Taken Unknown] Allergy/AdvReac Type Severity Reaction Status Date / Time ciprofloxacin [From Cipro] Allergy Hives Verified 07/25/21 17:52 ciprofloxacin HCl Allergy Hives Verified 07/25/21 17:52 [From Cipro] buspirone [From BuSpar] AdvReac Other Verified 07/25/21 17:52 citalopram [From Celexa] AdvReac Other Verified 07/25/21 17:52 fluoxetine [From Prozac] AdvReac Other Verified 07/25/21 17:52 Family History Mother Hypertension Cancer Skin Surgical History History of S/P tonsillectomy Social History household members: spouse and children Smoking Status: Former smoker second hand exposure: No alcohol intake: current alcohol intake frequency: a few times a month substance use type: does not use caffeine: Yes what type of physical activity do you participate in: none frequency: does not exercise seatbelt use: always EXAM Physical Exam Narrative Exam Narrative: 36-year-old female no acute distress vital signs stable afebrile pulse ox 94% on room air no signs hypoxia. HEENT exam unremarkable. Moist remembers. Neck nontender no JVD. No lymphadenopathy. Lungs expiratory wheezes on the right. No rales or rhonchi. Heart regular rhythm rate about 110 no murmur. Abdomen soft nontender. Moving all 4 extremities. Calves are nontender without edema or cords. Neurologically she is awake and alert with no focal motor deficits. Const Vital Signs: 07/25/21 17:52 07/25/21 18:07 Temperature 97.9 F 97.9 F Temperature Source Temporal Temporal Pulse Rate 110 H 110 H Respiratory Rate 20 H 20 H Respiratory Effort Short of Breath Respiratory Depth Normal Respiratory Pattern Normal Blood Pressure 163/84 H 163/84 H Blood Pressure Mean 110 110 Pulse Ox 94 94 Oxygen Delivery Method Room Air Room Air Positive well nourished, well developed and obese; Negative for cachectic or contractures General Appearance ED: well developed and NAD; Negative for cachectic, contractures, cyanotic, diaphoretic or pallor Nutritional Appearance: obese; Negative for cachectic HEENT Reports moist mucous membranes normocephalic and atraumatic External Ear: external ears normal Eyes PERRL and EOMs intact bilaterally Neck no lymphadenopathy, supple, no meningeal signs and no JVD General: Negative for anterior neck swelling or lymphadenopathy Resp normal respiratory effort and clear to auscultation bilaterally Auscultation: Negative for rales, rhonchi or wheezes Cardio S1 normal heart sound, S2 normal heart sound and no murmurs Rate: regular rate Rhythm: regular rhythm GI non-tender, non-distended and no masses Inspection: Negative for abdominal distention Auscultation: normoactive bowel sounds Palpation: soft; Negative for tender or guarding Back/Spine no CVA tenderness and normal ROM General Back: Negative for CVA tenderness Cervical Spine: Negative for cervical spine tenderness Extremity normal to inspection and full ROM General Extremety ED: Negative for cyanosis or tenderness General Extremity: Negative for cyanosis Neuro oriented x3 Sensorium / Orientation: alert, oriented to person, oriented to place and oriented to time; Negative for orientation impaired, lethargic or stuporous Psych mental status grossly normal Mood & Affect: Negative for depressed or tearful Skin General Skin Exam: Negative for jaundice or pallor Lesions: no lesions Rashes: no rashes MDM MDM MDM Narrative Medical decision making narrative: 36-year-old female recent diagnosis of pneumonia. Currently on Augmentin and prednisone. Repeat chest x-ray to be obtained. She had a negative Covid test previously. Repeat exam patient doing well at 7 PM be discharged home. Continue on her current medications. Radiography Diagnostic Testing: Chest x-ray, portable, single view interpreted by myself shows shows no acute normality. The left lingular infiltrate that was seen here today is resolved. This is a normal chest x-ray. Normal cardiac silhouette. No effusions. No infiltrate. Discharge Plan Triage Chief Complaint: Shortness of Breath ED Provider: Lauro Martinez Dx/Rx/DC Orders Clinical Impression: History of pneumonia, Asthma Instructions: ED Pneumonia (Adult) Prescriptions: No Action Zyrtec 10 mg capsule 10 mg PO DAILY RF: 0 sertraline 100 mg tablet 200 mg PO DAILY RF: 0 prednisone 10 mg tablet See Taper mg PO DAILY Qty: 30 RF: 0 amoxicillin-pot clavulanate [Augmentin] 875-125 mg tablet 1 tab PO BID Qty: 10 RF: 0 albuterol sulfate 1.25 mg/3 mL Solution For Nebulization 1.25 mg INHALATION Q4H Qty: 360 RF: 0 albuterol sulfate 90 mcg/actuation HFA aerosol inhaler 1 - 2 puff inhalation Q4H PRN PRN (Reason: Shortness Of Breath) Qty: 1 RF: 4 fluconazole 200 mg tablet 200 mg PO DAILY Qty: 14 RF: 0 Primary Care Provider: Rekha Payne Referrals: Rekha Payne MD [Primary Care Provider] - 3-5 Days if not improving Activity Restrictions/Additional Instructions: Plenty of fluids and rest. Continue on your antibiotic Augmentin and your steroids prednisone. You should progressively improve. Follow-up with your doctor if not improving. Disposition Disposition: Home, Self Care
--- NOTE | 2021-07-25 18:25 | RAD_ITS ---
STUDY: X-RAY CHEST REASON FOR EXAM: Female, 36 years old. LLL Pneumonia TECHNIQUE: Frontal portable view of the chest COMPARISON: to June 2021 FINDINGS: The lungs are clear and expanded. There is no demonstrated pleural abnormality. Normal size heart. Normal mediastinum and radhames. Normal visualized pulmonary arteries. Normal visualized aortic arch and descending thoracic aorta. Normal visualized thoracic spine. Normal visualized ribs, clavicles, and shoulders. There is no demonstrated abnormality of the visualized soft tissue structures of the upper abdomen. RAD/Chest 1 View (Portable) IMPRESSION: Normal x-ray examination of the chest. Electronically Signed: Mnoica Reeves MD at 19:31 EST Tel , Service support ,
[2021-07-25 19:32] VITALS: BP 145/89; PULSE 88; RESP 18; TEMP 36.7; O2SAT 97
== END 2021-07-25 19:34 | disposition home or self-care (01) ==
PROVIDERS: Emergency Provider Emergency Medicine; PCP Internal Medicine
DX: J45.909 Unspecified asthma, uncomplicated (principal); J18.9 Pneumonia, unspecified organism; E66.9 Obesity, unspecified; Z87.891 Personal history of nicotine dependence
CPT/HCPCS: 71045; 99282

== ENCOUNTER → 2022-03-24 | Outpatient (CLI) | payer MEDICAID, SELFPAY ==
[2022-03-24 08:40] LABS: Mucous, Urine 0 SEEN /hpf (<or=2+)
[2022-03-24 10:24] LABS: Color, Urine Yellow (Yellow); Glucose, Dipstick Normal (Normal); Ketone-Dipstick Negative (Negative); Leukocyte Esterase-Dipstick 25 /ul (Negative); Nitrite-Dipstick Negative (Negative); Occult Blood-Urine 250 /ul (Negative); Protein-Dipstick 30 mg/dl (Negative); Urine Bilirubin Dipstick Negative (Negative); Urine Clarity Clear (Clear); Urine Urobilinogen Normal (Normal)
[2022-03-24 11:37] LABS: Red Blood Cells-Urine 0-5 SEEN /hpf (0-5); Squamous Epithelial Cells - UA 0-5 SEEN /hpf (5-10); White Blood Cells 5-10 SEEN /hpf (0-5)
[2022-03-24 11:38] LABS: Bacteria 1+ /hpf (None Seen); Yeast-Urine 1+ /hpf (None Seen)
== END | disposition home or self-care (01) ==
LOC: LABSPEC 08:40
PROVIDERS: PCP Internal Medicine; Referring Provider Physician Assistant; Visit Provider Physician Assistant
DX: R30.0 Dysuria (principal)
CPT/HCPCS: 81001; 87077; 87086; 87088; 87186